=== PATIENT | female | born 1945 | race Caucasian/White ===

== ENCOUNTER → 2017-08-04 | Outpatient (CLI) | payer MEDICARE, OTHER ==
--- NOTE | 2017-08-05 11:38 | MM ---
Reason for exam: screening (asymptomatic). History: Patient is postmenopausal. Physical Findings: A clinical breast exam by your physician is recommended on an annual basis and results should be correlated with mammographic findings. MG Screening Mammo w CAD Bilateral CC and MLO view(s) were taken. No prior studies available for comparison. There are scattered fibroglandular densities. Finding: There are typically benign round calcifications in both breasts. ASSESSMENT: Benign, BI-RAD 2 RECOMMENDATION: Routine screening mammogram of both breasts in 1 year.
== END | disposition home or self-care (01) ==
LOC: RADMAMWWP 16:47
PROVIDERS: ATTEND Family Medicine
DX: Z12.31 Encounter for screening mammogram for malignant neoplasm of breast (principal)
CPT/HCPCS: 77067

== ENCOUNTER 2018-04-02 21:43 | Emergency (ER) | payer MEDICARE, OTHER ==
[2018-04-02] MEDS ORDERED: ONDANSETRON 4 MG/2 ML VIAL IVP STA (22:50)
[2018-04-02 22:56] LABS: Basophils % (A) 0 %; Eosinophils # (A) 0.1 k/uL (0-0.7); Eosinophils % (A) 1 %; HCT 41.2 % (34.0-46.0); HGB 12.7 gm/dL (11.4-16.0); Lymphocytes # (A) 1.3 k/uL (1.0-4.8); Lymphocytes % (A) 11 %; MCHC 30.8 g/dL (31.0-37.0); MCV 87.5 fL (80.0-100.0); Mean Platelet Volume 6.3; Monocytes # (A) 0.6 k/uL (0-1.0); Monocytes % (A) 5 %; Neutrophils # (A) 9.6 k/uL (1.3-7.7); Neutrophils % (A) 82 %; Platelet Count 263 k/uL (150-450); WBC 11.8 k/uL (3.8-10.6)
[2018-04-02 23:06] LABS: Albumin 3.7 g/dL (3.5-5.0); Calcium 9.7 mg/dL (8.4-10.2); Potassium 4.5 mmol/L (3.5-5.1); Total Bilirubin 0.4 mg/dL (0.2-1.3); Total Protein 6.5 g/dL (6.3-8.2)
[2018-04-02 23:26] LABS: Appearance,Urine Cloudy (Clear); Bilirubin,Urine Negative (Negative); Blood,Urine Trace (Negative); Color,Urine Yellow; Glucose,Urine (UA) 3+ (Negative); Ketones,Urine 1+ (Negative); Leukocyte Esterase,Urine Large (Negative); Mucus,Urine Many /hpf; Nitrite,Urine Negative (Negative); PH, Urine 5.5 (5.0-8.0); Protein,Urine 2+ (Negative); Specific Gravity,Urine 1.023 (1.001-1.035); Squamous Epithelial Cell,Urine 24 /hpf (0-4); Urobilinogen,Urine <2.0 mg/dL (<2.0); WBC,Urine 33 /hpf (0-5)
--- NOTE | 2018-04-03 00:24 | ED ---
Abdominal Pain HPI - General Chief Complaint: Abdominal Pain Stated Complaint: Abd pain Time Seen by Provider: 04/02/18 22:26 Source: patient Mode of arrival: ambulatory Limitations: no limitations - History of Present Illness Initial Comments: This patient is 72-year-old woman who complains of having abdominal pain. She states that is been developing over the past couple days. She states that the symptoms remind her somewhat of urinary tract infection, somewhat of previous episode of diverticulitis. MD Complaint: abdominal pain -: days(s) Location: LLQ, suprapubic Radiation: none Migration to: LLQ Severity: moderate Quality: aching Consistency: constant Improves With: nothing Worsens With: nothing Associated Symptoms: denies other symptoms - Related Data Previous Rx's Medication Instructions Recorded Ciprofloxacin HCl [Cipro] 500 mg PO Q12HR #14 tablet 04/03/18 Dicyclomine [Bentyl] 20 mg PO QID #15 tablet 04/03/18 metroNIDAZOLE [Flagyl] 500 mg PO TID #21 tab 04/03/18 Allergies Allergy/AdvReac Type Severity Reaction Status Date / Time prednisone Allergy Unknown Verified 04/02/18 22:21 Sulfa (Sulfonamide Allergy Unknown Verified 04/02/18 22:21 Antibiotics) Review of Systems ROS Statement: Those systems with pertinent positive or pertinent negative responses have been documented in the HPI. ROS Other: All systems not noted in ROS Statement are negative. Constitutional: Denies: fever, chills Respiratory: Denies: cough, dyspnea Cardiovascular: Denies: chest pain, palpitations Gastrointestinal: Reports: abdominal pain, nausea, vomiting. Denies: diarrhea, melena, hematochezia Genitourinary: Reports: dysuria. Denies: hematuria Musculoskeletal: Denies: back pain Skin: Denies: rash Neurological: Denies: headache, weakness, numbness Past Medical History Past Medical History: Diabetes Mellitus Additional Past Medical History / Comment(s): migraines History of Any Multi-Drug Resistant Organisms: None Reported Past Surgical History: Hysterectomy Past Psychological History: No Psychological Hx Reported Smoking Status: Never smoker Past Alcohol Use History: None Reported Past Drug Use History: None Reported General Exam Limitations: no limitations General appearance: alert, in no apparent distress, obese Head exam: Present: atraumatic, normocephalic Respiratory exam: Present: normal lung sounds bilaterally. Absent: respiratory distress, wheezes, rales, rhonchi, stridor Cardiovascular Exam: Present: regular rate, normal rhythm, normal heart sounds. Absent: systolic murmur, diastolic murmur, rubs, gallop GI/Abdominal exam: Present: soft, other (There is a small umbilical hernia which is nontender.). Absent: distended, tenderness, guarding, rebound, rigid, organomegaly, mass Extremities exam: Present: normal inspection, normal capillary refill. Absent: pedal edema, calf tenderness Back exam: Present: normal inspection. Absent: CVA tenderness (R), CVA tenderness (L) Neurological exam: Present: alert Skin exam: Present: warm, dry, intact, normal color. Absent: rash Course Vital Signs 04/02/18 04/03/18 04/03/18 22:21 00:19 02:52 Temperature 98.9 F 98.3 F Pulse Rate 109 H 92 100 Respiratory 20 18 16 Rate Blood Pressure 156/98 152/90 114/56 O2 Sat by Pulse 97 96 95 Oximetry Medical Decision Making - Medical Decision Making Following the results of the studies. I will reevaluated the patient. She is feeling much better. We discussed admission friend natalya but the patient states that she would rather attempt outpatient course. Discussed that the area of colitis is somewhat large and she should return immediately if she rates is any worsening, or if she is not experiencing improvement inside of 12 hours. Appropriate further care and follow-up discussed - Lab Data Result diagrams: 04/02/18 22:44 04/02/18 22:44 Lab Results 04/02/18 04/02/18 04/02/18 Range/Units 22:44 22:44 22:57 WBC 11.8 H (3.8-10.6) k/uL RBC 4.70 (3.80-5.40) m/uL Hgb 12.7 (11.4-16.0) gm/dL Hct 41.2 (34.0-46.0) % MCV 87.5 (80.0-100.0) fL MCH 27.0 (25.0-35.0) pg MCHC 30.8 L (31.0-37.0) g/dL RDW 15.0 (11.5-15.5) % Plt Count 263 (150-450) k/uL Neutrophils % 82 % Lymphocytes % 11 % Monocytes % 5 % Eosinophils % 1 % Basophils % 0 % Neutrophils # 9.6 H (1.3-7.7) k/uL Lymphocytes # 1.3 (1.0-4.8) k/uL Monocytes # 0.6 (0-1.0) k/uL Eosinophils # 0.1 (0-0.7) k/uL Basophils # 0.0 (0-0.2) k/uL Sodium 136 L (137-145) mmol/L Potassium 4.5 (3.5-5.1) mmol/L Chloride 104 (98-107) mmol/L Carbon Dioxide 23 (22-30) mmol/L Anion Gap 9 mmol/L BUN 17 (7-17) mg/dL Creatinine 0.77 (0.52-1.04) mg/dL Est GFR (CKD-EPI)AfAm 90 (>60 ml/min/1.73 sqM) Est GFR (CKD-EPI)NonAf 78 (>60 ml/min/1.73 sqM) Glucose 202 H (74-99) mg/dL Calcium 9.7 (8.4-10.2) mg/dL Total Bilirubin 0.4 (0.2-1.3) mg/dL AST 22 (14-36) U/L ALT 26 (9-52) U/L Alkaline Phosphatase 121 (38-126) U/L Total Protein 6.5 (6.3-8.2) g/dL Albumin 3.7 (3.5-5.0) g/dL Amylase 46 (30-110) U/L Lipase 146 (23-300) U/L Urine Color Yellow Urine Appearance Cloudy H (Clear) Urine pH 5.5 (5.0-8.0) Ur Specific [place] 1.023 (1.001-1.035) Urine Protein 2+ H (Negative) Urine Glucose (UA) 3+ H (Negative) Urine Ketones 1+ H (Negative) Urine Blood Trace H (Negative) Urine Nitrite Negative (Negative) Urine Bilirubin Negative (Negative) Urine Urobilinogen <2.0 (<2.0) mg/dL Ur Leukocyte Esterase Large H (Negative) Urine WBC 33 H (0-5) /hpf Ur Squamous Epith Cells 24 H (0-4) /hpf Urine Mucus Many H (None) /hpf Disposition Clinical Impression: Abdominal pain, Diverticulitis Disposition: HOME SELF-CARE Condition: Fair Instructions: Diverticulitis (ED) Prescriptions: Ciprofloxacin HCl [Cipro] 500 mg PO Q12HR #14 tablet Dicyclomine [Bentyl] 20 mg PO QID #15 tablet metroNIDAZOLE [Flagyl] 500 mg PO TID #21 tab Is patient prescribed a controlled substance at d/c from ED?: No Referrals: Wily Kamara MD [Primary Care Provider] - 1-2 days
--- NOTE | 2018-04-03 01:00 | CT ---
EXAMINATION TYPE: CT abdomen pelvis wo con DATE OF EXAM: 04/03/2018 COMPARISON: None HISTORY: mid abd pain CT DLP: 909.3 mGycm Automated exposure control for dose reduction was used. TECHNIQUE: Helical acquisition of images was performed from the lung bases through the pelvis. FINDINGS: There is a noncalcified 10 mm nodule in the right middle lobe. There is no pleural effusion. There is no pericardial effusion. Liver spleen pancreas gallbladder appear normal. Bile ducts are not dilated. Gallbladder measures 3.7 cm in diameter. There is no adrenal mass. Kidneys show no hydronephrosis. Ureters are not dilated. T here is a high density 2.8 cm cyst on the lateral left kidney. The density is 76. This contains calci um. There is no retroperitoneal adenopathy. There is umbilical hernia that contains fat. The fat is incar cerated and the opening is 1.4 cm. There are extensive inflammatory changes involving the proximal sigmoid colon with fat stranding. The re are numerous sigmoid diverticula. I see no definite free air. There is no evidence of a bowel obst ruction. Bladder distends smoothly. There is no inguinal hernia. There is no free fluid in the pelvis . There are some spondylotic changes in the lumbar spine. Bony pelvis is intact. There is no compress ion fracture. IMPRESSION: THERE IS EXTENSIVE DESCENDING COLON AND SIGMOID COLON DIVERTICULOSIS WITH A 9 CM SEGMENT OF SIGMOID D IVERTICULITIS. NO DRAINABLE FLUID COLLECTION. 5 CM INCARCERATED UMBILICAL HERNIA. 1 cm right middle lobe nodule.
[2018-04-03] MEDS ORDERED: metroNIDAZOLE 500 MG TAB PO STA (01:01)
[2018-04-03] MEDS ORDERED: LEVOFLOXACIN 750MG-D5W PMX 750 MG in DEXTROSE/WATER 1 150ML.BAG IVPB STA (01:01)
[2018-04-03] MEDS ORDERED: MORPHINE SULFATE 4 MG/ML SYRINGE IV STA (01:19)
[2018-04-03 02:53] VITALS: BP 114/56; PULSE 100; RESP 16; TEMP 98.3
== END 2018-04-03 02:53 | disposition home or self-care (01) ==
LOC: EC 21:43
DX: K57.92 Diverticulitis of intestine, part unspecified, without perforation or abscess without bleeding (principal); K42.9 Umbilical hernia without obstruction or gangrene; Z90.710 Acquired absence of both cervix and uterus; Z88.2 Allergy status to sulfonamides; Z88.8 Allergy status to other drugs, medicaments and biological substances
CPT/HCPCS: 36415; 80053; 82150; 83690; 85025; 81001; 74176; 99284; 96365; 96375 ×2; J2270; J2405; J1956

== ENCOUNTER 2018-05-06 12:12 | Inpatient (IN) | payer MEDICARE, OTHER ==
[2018-05-06] MEDS ORDERED: SODIUM CHLORIDE 0.9% 500 ML 500 ML IV STA (12:40)
[2018-05-06] MEDS ORDERED: ONDANSETRON 4 MG/2 ML VIAL IVP STA (12:40)
[2018-05-06] MEDS ORDERED: PANTOPRAZOLE 40 MG/10 ML VIAL IVP STA (12:40)
--- NOTE | 2018-05-06 12:43 | ED ---
General Adult HPI - General Chief complaint: GI Bleed Stated complaint: GI bleed Time Seen by Provider: 05/06/18 12:18 Source: patient, RN notes reviewed, old records reviewed Mode of arrival: ambulatory Limitations: no limitations - History of Present Illness Initial comments: 72-year-old presents for evaluation of abdominal pain, vomiting, diarrhea. Patient does seem emergency department approximately one month ago, diagnosed with acute diverticulitis, treated with antibiotics. Patient was recommended to be admitted at that time however she declined admission, she went home with oral antibiotics. She's had persistent symptoms including diarrhea with blood and persistent nausea with several episodes of vomiting approximately one episode daily. She has noted some blood in her vomit as well. No fever or chills. She has some mild generalized abdominal pain. Patient was seen by her primary care physician who did recommend she be presented to emergency department for evaluation given that she has had persistent symptoms. - Related Data Home Medications Medication Instructions Recorded Confirmed Diazepam [Valium] 5 mg PO DAILY PRN 05/06/18 05/06/18 Dicyclomine [Bentyl] 20 mg PO QID 05/06/18 05/06/18 Glimepiride [Amaryl] 4 mg PO AC-BRKFST 05/06/18 05/06/18 Pioglitazone [Actos] 45 mg PO DAILY 05/06/18 05/06/18 Sertraline [Zoloft] 50 mg PO DAILY 05/06/18 05/06/18 metFORMIN HCL [Glucophage] 500 mg PO BID@1700,2100 05/06/18 05/06/18 Allergies Allergy/AdvReac Type Severity Reaction Status Date / Time prednisone Allergy Unknown Verified 05/06/18 12:43 Sulfa (Sulfonamide Allergy Unknown Verified 05/06/18 12:43 Antibiotics) metronidazole [From Flagyl] AdvReac Nausea Verified 05/06/18 12:43 Review of Systems ROS Statement: Those systems with pertinent positive or pertinent negative responses have been documented in the HPI. ROS Other: All systems not noted in ROS Statement are negative. Past Medical History Past Medical History: Diabetes Mellitus Additional Past Medical History / Comment(s): migraines History of Any Multi-Drug Resistant Organisms: None Reported Past Surgical History: Hysterectomy Past Psychological History: No Psychological Hx Reported Smoking Status: Never smoker Past Alcohol Use History: None Reported Past Drug Use History: None Reported General Exam Limitations: no limitations General appearance: alert, in no apparent distress Head exam: Present: atraumatic, normocephalic Eye exam: Present: normal appearance, PERRL ENT exam: Present: normal exam Neck exam: Present: normal inspection. Absent: tenderness, meningismus Respiratory exam: Present: normal lung sounds bilaterally. Absent: respiratory distress, wheezes Cardiovascular Exam: Present: normal rhythm, tachycardia GI/Abdominal exam: Present: soft. Absent: distended, tenderness, guarding, rebound Rectal exam: Present: normal rectal tone. Absent: black stool, bloody stool Extremities exam: Present: normal inspection, normal capillary refill. Absent: pedal edema Neurological exam: Present: alert, oriented X3, CN II-XII intact. Absent: motor sensory deficit Psychiatric exam: Present: normal affect, normal mood Skin exam: Present: warm, dry, intact. Absent: cyanosis, diaphoretic Course Vital Signs 05/06/18 05/06/18 05/06/18 12:18 13:30 15:00 Temperature 98 F Pulse Rate 110 H 105 H 91 Respiratory 22 18 17 Rate Blood Pressure 139/73 156/98 148/69 O2 Sat by Pulse 97 96 93 L Oximetry Medical Decision Making - Medical Decision Making 72-year-old female presenting with persistent nausea and vomiting as well as diarrhea with blood in both vomiting and diarrhea over the past one month. Initially treated for diverticulitis with oral antibiotics. States her symptoms have not improved she's had persistent diarrhea and rectal bleeding. On exam patient has no active rectal bleeding, no melena, no hematochezia. Laboratory studies reveal normal white blood cell count, stable hemoglobin, normal CMP, CT is performed which is more consistent with a colitis rather than diverticulitis at this point. Given the ongoing symptoms she was started on both Protonix, and Levaquin for colitis. She will be admitted for symptomatic treatment and reevaluation. Case is discussed with Dr. Hebert, who will accept admission. - Lab Data Result diagrams: 05/06/18 12:45 05/06/18 12:45 Lab Results 05/06/18 05/06/18 05/06/18 Range/Units 12:45 12:45 12:45 WBC 8.6 (3.8-10.6) k/uL RBC 4.80 (3.80-5.40) m/uL Hgb 13.3 (11.4-16.0) gm/dL Hct 40.9 (34.0-46.0) % MCV 85.2 (80.0-100.0) fL MCH 27.6 (25.0-35.0) pg MCHC 32.4 (31.0-37.0) g/dL RDW 15.0 (11.5-15.5) % Plt Count 216 (150-450) k/uL Neutrophils % 73 % Lymphocytes % 15 % Monocytes % 8 % Eosinophils % 1 % Basophils % 0 % Neutrophils # 6.3 (1.3-7.7) k/uL Lymphocytes # 1.3 (1.0-4.8) k/uL Monocytes # 0.7 (0-1.0) k/uL Eosinophils # 0.1 (0-0.7) k/uL Basophils # 0.0 (0-0.2) k/uL Sodium 138 (137-145) mmol/L Potassium 4.4 (3.5-5.1) mmol/L Chloride 108 H (98-107) mmol/L Carbon Dioxide 19 L (22-30) mmol/L Anion Gap 11 mmol/L BUN 23 H (7-17) mg/dL Creatinine 0.95 (0.52-1.04) mg/dL Est GFR (CKD-EPI)AfAm 70 (>60 ml/min/1.73 sqM) Est GFR (CKD-EPI)NonAf 61 (>60 ml/min/1.73 sqM) Glucose 178 H (74-99) mg/dL Plasma Lactic Acid Leroy 1.0 (0.7-2.0) mmol/L Calcium 9.2 (8.4-10.2) mg/dL Total Bilirubin 0.4 (0.2-1.3) mg/dL AST 28 (14-36) U/L ALT 29 (9-52) U/L Alkaline Phosphatase 123 (38-126) U/L Total Protein 6.7 (6.3-8.2) g/dL Albumin 3.8 (3.5-5.0) g/dL Amylase 46 (30-110) U/L Lipase 202 (23-300) U/L Stool Occult Blood (Negative) 05/06/18 Range/Units 12:45 WBC (3.8-10.6) k/uL RBC (3.80-5.40) m/uL Hgb (11.4-16.0) gm/dL Hct (34.0-46.0) % MCV (80.0-100.0) fL MCH (25.0-35.0) pg MCHC (31.0-37.0) g/dL RDW (11.5-15.5) % Plt Count (150-450) k/uL Neutrophils % % Lymphocytes % % Monocytes % % Eosinophils % % Basophils % % Neutrophils # (1.3-7.7) k/uL Lymphocytes # (1.0-4.8) k/uL Monocytes # (0-1.0) k/uL Eosinophils # (0-0.7) k/uL Basophils # (0-0.2) k/uL Sodium (137-145) mmol/L Potassium (3.5-5.1) mmol/L Chloride (98-107) mmol/L Carbon Dioxide (22-30) mmol/L Anion Gap mmol/L BUN (7-17) mg/dL Creatinine (0.52-1.04) mg/dL Est GFR (CKD-EPI)AfAm (>60 ml/min/1.73 sqM) Est GFR (CKD-EPI)NonAf (>60 ml/min/1.73 sqM) Glucose (74-99) mg/dL Plasma Lactic Acid Leroy (0.7-2.0) mmol/L Calcium (8.4-10.2) mg/dL Total Bilirubin (0.2-1.3) mg/dL AST (14-36) U/L ALT (9-52) U/L Alkaline Phosphatase (38-126) U/L Total Protein (6.3-8.2) g/dL Albumin (3.5-5.0) g/dL Amylase (30-110) U/L Lipase (23-300) U/L Stool Occult Blood Negative (Negative) Disposition Clinical Impression: Colitis, Vomiting and diarrhea Disposition: ADMITTED IP TO THIS [facility] Condition: Stable Is patient prescribed a controlled substance at d/c from ED?: No Referrals: Wily Kamara MD [Primary Care Provider] - 1-2 days Decision to Admit Reason: Admit from EC Decision Date: 05/06/18 Decision Time: 15:14
[2018-05-06 13:17] LABS: Basophils % (A) 0 %; Eosinophils # (A) 0.1 k/uL (0-0.7); Eosinophils % (A) 1 %; HCT 40.9 % (34.0-46.0); HGB 13.3 gm/dL (11.4-16.0); Lymphocytes # (A) 1.3 k/uL (1.0-4.8); Lymphocytes % (A) 15 %; MCH 27.6 pg (25.0-35.0); MCHC 32.4 g/dL (31.0-37.0); MCV 85.2 fL (80.0-100.0); Mean Platelet Volume 7.2; Monocytes # (A) 0.7 k/uL (0-1.0); Monocytes % (A) 8 %; Neutrophils # (A) 6.3 k/uL (1.3-7.7); Neutrophils % (A) 73 %; Platelet Count 216 k/uL (150-450); WBC 8.6 k/uL (3.8-10.6)
[2018-05-06 13:28] LABS: Total Protein 6.7 g/dL (6.3-8.2)
[2018-05-06 13:29] LABS: Albumin 3.8 g/dL (3.5-5.0); Calcium 9.2 mg/dL (8.4-10.2); Potassium 4.4 mmol/L (3.5-5.1); Total Bilirubin 0.4 mg/dL (0.2-1.3)
--- NOTE | 2018-05-06 14:18 | CT ---
EXAMINATION TYPE: CT abdomen pelvis w con DATE OF EXAM: 05/06/2018 COMPARISON: Prior CT 04/03/2018 HISTORY: Lower pelvic pain, vomiting, diarrhea, rectal bleeding CT DLP: 1413.3 mGycm Automated exposure control for dose reduction was used. TECHNIQUE: Helical acquisition of images from the lung bases through the pelvis have been completed. CONTRAST: Performed without Oral Contrast and with IV Contrast, patient injected with 100 mL of Isovue 300. FINDINGS: Umbilical hernia contains fat as on prior exam. LUNG BASES: There is an indeterminate soft tissue nodule within the right middle lobe measuring appro ximately 1 cm as noted on prior exam, question left lower lobe nodule on axial image 8 and the subple ural location left lower lobe measuring 3 mm as well as on axial image 1. AORTA: No significant abnormality is appreciated. LIVER/GB: Liver shows low attenuation likely due to hepatic steatosis. Gallbladder is unremarkable. PANCREAS: No significant abnormality is seen. SPLEEN: No significant abnormality is seen. ADRENALS: No significant abnormality is seen. KIDNEYS: Dense left renal exophytic lesion measures 2.9 cm mid pole left kidney as on prior exam, no hydronephrosis bilaterally. REPRODUCTIVE ORGANS: Not seen. BOWEL: Diverticular change is again noted associated with the colon. There is improvement in the abn ormal inflammatory changes seen on previous exam within the pericolonic region of the sigmoid colon. The appendix is normal. The colon shows wall thickening. FREE AIR: No Free Air visible. ASCITES: None visible. PELVIC ADENOPATHY: None visualized. RETROPERITONEAL ADENOPATHY: No Retroperitoneal Adenopathy visible. URINARY BLADDER: No significant abnormality is seen. OSSEOUS STRUCTURES: Degenerative disc changes, facet arthropathy and spinal stenosis again noted in the lower lumbar spine. Spinal curvature. IMPRESSION: Correlate for possible colitis. INTERVAL IMPROVEMENT IN PATIENT'S INFLAMMATORY CHANGES IN THE PELVIS, EXTENSIVE DIVERTICULOSIS. INDETERMINATE PULMONARY NODULES.
[2018-05-06] MEDS ORDERED: LEVOFLOXACIN 500MG-D5W PMX 500 MG in DEXTROSE/WATER 1 100ML.BAG IVPB STA (15:08)
[2018-05-06] MEDS ORDERED: NALOXONE 0.4 MG/ML 1 ML VIAL IV PRN (15:15)
[2018-05-06] MEDS: SODIUM CHLORIDE 0.9% 1,000 ML IV SCH (15:20)
[2018-05-06 17:20] LABS: Glucose,Whole Blood 127 mg/dL (75-99)
[2018-05-06] MEDS: INSULIN ASPART 100 UNIT/ML 1 ML 10 ML VIAL SQ SCH ×2 (17:24→21:55)
[2018-05-06] MEDS: DICYCLOMINE 20 MG TAB PO SCH ×2 (17:47→20:22)
[2018-05-06] MEDS: PANTOPRAZOLE 40 MG/10 ML VIAL IVP SCH (20:22)
[2018-05-06 21:24] LABS: Glucose,Whole Blood 132 mg/dL (75-99)
[2018-05-06 22:12] LABS: Appearance,Urine Clear (Clear); Bacteria,Urine Occasional /hpf; Bilirubin,Urine Negative (Negative); Blood,Urine Trace (Negative); Color,Urine Yellow; Glucose,Urine (UA) Negative (Negative); Ketones,Urine Trace (Negative); Leukocyte Esterase,Urine Large (Negative); Mucus,Urine Occasional /hpf; Nitrite,Urine Negative (Negative); PH, Urine 5.5 (5.0-8.0); Protein,Urine 1+ (Negative); RBC,Urine 7 /hpf (0-5); Squamous Epithelial Cell,Urine 17 /hpf (0-4); Urobilinogen,Urine <2.0 mg/dL (<2.0); WBC,Urine 29 /hpf (0-5)
[2018-05-06 22:24] LABS: Specific Gravity,Urine >1.050 (1.001-1.035)
--- NOTE | 2018-05-06 23:09 | P.HPIM ---
History of Present Illness H&P Date: 05/06/18 Chief Complaint: Abdominal pain, nausea and vomiting Patient is a 72-year-old female with a known history of diabetes type 2, recent history of diverticulitis came to ER with complaints of abdominal pain, nausea vomiting and diarrhea. Patient was treated with antibiotics for acute diverticulitis about a month ago. For the past 2 days patient has been having nausea vomiting and diarrhea and abdominal pain. Patient did notice some blood in her vomit as well. Patient came to ER for further evaluation. Otherwise denied any fever or chills. No headache or dizziness lightheadedness. No chest shortness of breath. Patient was seen by her primary care physician who did recommend she be presented to emergency department for evaluation given that she has had persistent symptoms. CT of the abdomen pelvis showed correlate for possible colitis. Interventional improvement in the inflammatory changes in the pelvis, extensive diverticulosis. Indeterminate pulmonary nodules. Review of Systems Constitutional: Patient denies any fever or chills . No generalized weakness or weight loss. Abdomen: Patient does have nausea vomiting and abdominal pain.. Cardiovascular: Patient denies any chest pain or short of breath no palpitations. Respiratory: patient denied any cough is from production. No shortness of breath Neurologic: Patient denied any numbness or tingling headache. Musculoskeletal: Patient denies any complaints of joint swelling or deformity. Skin: Negative Psychiatric: Negative Endocrine: No heat or cold intolerance. No recent weight gain. Genitourinary: No dysuria or hematuria. All other 14 point ROS negative except the above Past Medical History Past Medical History: Diabetes Mellitus Additional Past Medical History / Comment(s): migraines History of Any Multi-Drug Resistant Organisms: None Reported Past Surgical History: Hysterectomy Past Psychological History: No Psychological Hx Reported Smoking Status: Never smoker Past Alcohol Use History: None Reported Past Drug Use History: None Reported - Past Family History Mother Family Medical History: Cancer, Coronary Artery Disease (CAD) Additional Family Medical History / Comment(s): breast cancer. triple vessel cabg- age 95 Father Family Medical History: Cancer Additional Family Medical History / Comment(s): age 62 Medications and Allergies Home Medications Medication Instructions Recorded Confirmed Type Diazepam [Valium] 5 mg PO DAILY PRN 05/06/18 05/06/18 History Dicyclomine [Bentyl] 20 mg PO QID 05/06/18 05/06/18 History Glimepiride [Amaryl] 4 mg PO AC-BRKFST 05/06/18 05/06/18 History Pioglitazone [Actos] 45 mg PO DAILY 05/06/18 05/06/18 History Sertraline [Zoloft] 50 mg PO DAILY 05/06/18 05/06/18 History metFORMIN HCL [Glucophage] 500 mg PO BID@1700,2100 05/06/18 05/06/18 History Allergies Allergy/AdvReac Type Severity Reaction Status Date / Time prednisone Allergy Unknown Verified 05/06/18 12:43 Sulfa (Sulfonamide Allergy Unknown Verified 05/06/18 12:43 Antibiotics) metronidazole [From Flagyl] AdvReac Nausea Verified 05/06/18 12:43 Physical Exam Vitals: Vital Signs Temp Pulse Resp BP Pulse Ox 05/06/18 15:00 91 17 148/69 93 L 05/06/18 13:30 105 H 18 156/98 96 05/06/18 12:18 98 F 110 H 22 139/73 97 Intake and Output 05/06/18 05/06/18 05/06/18 06:59 14:59 22:59 Other: Weight 95.254 kg PHYSICAL EXAMINATION: Patient is lying in the bed comfortably, no acute distress, awake alert and oriented.. HEENT: Normocephalic. Neck is supple. Pupils reactive. Nostrils clear. Oral cavity is moist. Ears reveal no drainage. Neck reveals no JVD, carotid bruits, or thyromegaly. CHEST EXAMINATION: Trachea is central. Symmetrical expansion. Lung olivares clear to auscultation and percussion. CARDIAC: Normal S1, S2 with no gallops. No murmurs ABDOMEN: Soft. Bowel sounds normal. Mild diffuse tenderness. No guarding no rigidity. No organomegaly. No abdominal bruits. Extremities: reveal no edema. No clubbing or cyanosis Neurologically awake, alert, oriented x3 with well-coordinated movements. No focal deficits noted Skin: No rash or skin lesions. Psychiatric: Coperative. Nonsuicidal Musculoskeletal: No joint swelling or deformity. Normal range of motion. Results CBC & Chem 7: 05/06/18 12:45 05/06/18 12:45 Labs: Abnormal Lab Results - Last 24 Hours (Table) 05/06/18 Range/Units 12:45 Chloride 108 H (98-107) mmol/L Carbon Dioxide 19 L (22-30) mmol/L BUN 23 H (7-17) mg/dL Glucose 178 H (74-99) mg/dL Thrombosis Risk Factor Assmnt - DVT/VTE Prophylaxis DVT/VTE Prophylaxis: Pharmacologic Prophylaxis ordered Assessment and Plan Assessment: Nausea vomiting and diarrhea due to acute colitis. Possible urinary tract infection Streaks of blood with emesis. Likely mucosal excoriation. No active bleeding noted. FOBT negative Recently treated diverticulitis Significant diverticulosis Diabetes type 2 [id number] Morbid obesity BMI 37.2 DVT prophylaxis with SCDs Plan: Patient be continued on symptomatic management for nausea and vomiting. Continue with antibiotics of Levaquin and Flagyl. Patient says that she did have metallic taste with Flagyl by mouth. Continue with IV Flagyl now. Continue the home diabetic medications. Continue with IV Protonix and monitor H &H. IV hydration. Follow-up urine culture reports. Follow up closely and further recommendations based on the clinical course. Time with Patient: Greater than 30
[2018-05-07] MEDS: DIAZEPAM 5 MG TAB PO PRN ×2 (00:32→23:24)
[2018-05-07] MEDS: metroNIDAZOLE-NS PMX 500 MG in SALINE 1 100ML.BAG IVPB SCH ×4 (00:32→23:24)
[2018-05-07 03:38] LABS: Hemoglobin A1C 8.9 % (4.0-6.0)
[2018-05-07] MEDS: SODIUM CHLORIDE 0.9% 1,000 ML IV SCH ×2 (04:30→17:21)
[2018-05-07] MEDS: SERTRALINE 50 MG TAB PO SCH (07:42)
[2018-05-07] MEDS: PIOGLITAZONE 45 MG TAB PO SCH (07:43)
[2018-05-07] MEDS: DICYCLOMINE 20 MG TAB PO SCH ×4 (07:43→21:14)
[2018-05-07] MEDS: INSULIN ASPART 100 UNIT/ML 1 ML 10 ML VIAL SQ SCH ×4 (07:44→21:15)
[2018-05-07] MEDS: PANTOPRAZOLE 40 MG/10 ML VIAL IVP SCH ×2 (07:44→21:14)
[2018-05-07 07:47] LABS: Glucose,Whole Blood 174 mg/dL (75-99)
[2018-05-07 11:55] LABS: Glucose,Whole Blood 129 mg/dL (75-99)
[2018-05-07] MEDS ORDERED: ACETAMINOPHEN TAB 325 MG TAB PO PRN (12:50)
[2018-05-07] MEDS: LEVOFLOXACIN 500MG-D5W PMX 500 MG in DEXTROSE/WATER 1 100ML.BAG IVPB SCH (15:27)
[2018-05-07 17:14] LABS: Glucose,Whole Blood 127 mg/dL (75-99)
[2018-05-07 20:05] LABS: Glucose,Whole Blood 191 mg/dL (75-99)
--- NOTE | 2018-05-07 23:10 | P.PN ---
Subjective Progress Note Date: 05/07/18 Principal diagnosis: Colitis Patient is a 72-year-old female with a known history of diabetes type 2, recent history of diverticulitis came to ER with complaints of abdominal pain, nausea vomiting and diarrhea. Patient was treated with antibiotics for acute diverticulitis about a month ago. For the past 2 days patient has been having nausea vomiting and diarrhea and abdominal pain. Patient did notice some blood in her vomit as well. Patient came to ER for further evaluation. Otherwise denied any fever or chills. No headache or dizziness lightheadedness. No chest shortness of breath. Patient was seen by her primary care physician who did recommend she be presented to emergency department for evaluation given that she has had persistent symptoms. CT of the abdomen pelvis showed correlate for possible colitis. Interventional improvement in the inflammatory changes in the pelvis, extensive diverticulosis. Indeterminate pulmonary nodules. 05/07/2018 Patient denied any complaints of nausea vomiting today. Abdominal pain improved. Diarrhea improved as well. Patient is being continued on antibiotics for colitis. Patient will be started on diet and advanced to soft as tolerated. No fever no chills. No chest pain or shortness of breath. No other acute overnight issues otherwise. Current medications reviewed Objective - Vital Signs Vital signs: Vital Signs Temp 98.5 F 05/07/18 18:06 Pulse 89 05/07/18 18:06 Resp 17 05/07/18 18:06 BP 103/65 05/07/18 18:06 Pulse Ox 98 05/07/18 18:06 Intake & Output 05/07/18 05/07/18 05/08/18 06:59 18:59 06:59 Intake Total 672 Balance 672 Intake: Oral 672 Other: Voiding Method Toilet Toilet - Exam PHYSICAL EXAMINATION: Patient is lying in the bed comfortably, no acute distress, awake alert and oriented.. HEENT: Normocephalic. Neck is supple. Pupils reactive. Nostrils clear. Oral cavity is moist. Ears reveal no drainage. Neck reveals no JVD, carotid bruits, or thyromegaly. CHEST EXAMINATION: Trachea is central. Symmetrical expansion. Lung olivares clear to auscultation and percussion. CARDIAC: Normal S1, S2 with no gallops. No murmurs ABDOMEN: Soft. Bowel sounds normal. No organomegaly. No abdominal bruits. Extremities: reveal no edema. No clubbing or cyanosis Neurologically awake, alert, oriented x3 with well-coordinated movements. No focal deficits noted Skin: No rash or skin lesions. Psychiatric: Coperative. Nonsuicidal Musculoskeletal: No joint swelling or deformity. Normal range of motion. - Labs CBC & Chem 7: 05/06/18 12:45 05/06/18 12:45 Labs: Abnormal Lab Results - Last 24 Hours (Table) 05/06/18 05/06/18 05/07/18 Range/Units 12:45 20:38 07:35 POC Glucose (mg/dL) 174 H (75-99) mg/dL Hemoglobin A1c 8.9 H (4.0-6.0) % Ur Specific Holstein >1.050 H (1.001-1.035) 05/07/18 05/07/18 05/07/18 Range/Units 11:42 17:02 19:53 POC Glucose (mg/dL) 129 H 127 H 191 H (75-99) mg/dL Hemoglobin A1c (4.0-6.0) % Ur Specific Holstein (1.001-1.035) Microbiology - Last 24 Hours (Table) 05/06/18 20:38 Urine Culture - Preliminary Urine,Clean Catch Assessment and Plan Assessment: Nausea vomiting and diarrhea due to acute colitis. Possible urinary tract infection Streaks of blood with emesis. Likely mucosal excoriation. No active bleeding noted. FOBT negative Recently treated diverticulitis Significant diverticulosis Diabetes type 2 [id number] Morbid obesity BMI 37.2 DVT prophylaxis with SCDs Plan: Patient be continued on symptomatic management for nausea and vomiting. Continue with antibiotics of Levaquin and Flagyl. Patient says that she did have metallic taste with Flagyl by mouth. Continue with IV Flagyl which patient is tolerating now. Continue the home diabetic medications. Continue with IV Protonix and monitor H&H. IV hydration. Follow-up urine culture reports. Follow up closely and further recommendations based on the clinical course.
[2018-05-08] MEDS: SERTRALINE 50 MG TAB PO SCH (08:04)
[2018-05-08] MEDS: metroNIDAZOLE 500 MG TAB PO SCH ×3 (08:04→23:27)
[2018-05-08 08:05] LABS: Glucose,Whole Blood 137 mg/dL (75-99)
[2018-05-08] MEDS: PIOGLITAZONE 45 MG TAB PO SCH (08:05)
[2018-05-08] MEDS: PANTOPRAZOLE 40 MG/10 ML VIAL IVP SCH ×2 (08:05→22:17)
[2018-05-08] MEDS: DICYCLOMINE 20 MG TAB PO SCH ×4 (08:05→22:17)
[2018-05-08] MEDS: INSULIN ASPART 100 UNIT/ML 1 ML 10 ML VIAL SQ SCH ×4 (08:06→22:17)
[2018-05-08] MEDS: SODIUM CHLORIDE 0.9% 1,000 ML IV SCH ×2 (08:06→23:28)
[2018-05-08 12:03] LABS: Glucose,Whole Blood 185 mg/dL (75-99)
[2018-05-08] MEDS: LEVOFLOXACIN 500MG-D5W PMX 500 MG in DEXTROSE/WATER 1 100ML.BAG IVPB SCH (13:54)
[2018-05-08 17:10] LABS: Glucose,Whole Blood 129 mg/dL (75-99)
[2018-05-08 21:09] LABS: Glucose,Whole Blood 169 mg/dL (75-99)
[2018-05-08] MEDS: DIAZEPAM 5 MG TAB PO PRN (22:20)
--- NOTE | 2018-05-08 23:37 | P.PN ---
Subjective Progress Note Date: 05/08/18 Principal diagnosis: Colitis Patient is a 72-year-old female with a known history of diabetes type 2, recent history of diverticulitis came to ER with complaints of abdominal pain, nausea vomiting and diarrhea. Patient was treated with antibiotics for acute diverticulitis about a month ago. For the past 2 days patient has been having nausea vomiting and diarrhea and abdominal pain. Patient did notice some blood in her vomit as well. Patient came to ER for further evaluation. Otherwise denied any fever or chills. No headache or dizziness lightheadedness. No chest shortness of breath. Patient was seen by her primary care physician who did recommend she be presented to emergency department for evaluation given that she has had persistent symptoms. CT of the abdomen pelvis showed correlate for possible colitis. Interventional improvement in the inflammatory changes in the pelvis, extensive diverticulosis. Indeterminate pulmonary nodules. 05/07/2018 Patient denied any complaints of nausea vomiting today. Abdominal pain improved. Diarrhea improved as well. Patient is being continued on antibiotics for colitis. Patient will be started on diet and advanced to soft as tolerated. No fever no chills. No chest pain or shortness of breath. No other acute overnight issues otherwise. 05/07/2018 Patient is tolerating oral diet. Patient did have a small bowel movement this morning. Abdominal pain is much improved now. Advance diet as tolerated. No fever no chills. No headache or dizziness or lightheadedness. Anticipate discharge in next 24 hours with more clinical improvement. Current medications reviewed Objective - Vital Signs Vital signs: Vital Signs Temp 98.7 F 05/08/18 20:30 Pulse 89 05/08/18 20:30 Resp 16 05/08/18 20:30 BP 135/69 05/08/18 20:30 Pulse Ox 96 05/08/18 20:30 Intake & Output 05/08/18 05/08/18 05/09/18 06:59 18:59 06:59 Intake Total 1480 Balance 1480 Intake: Intake, IV Titration 1000 Amount Sodium Chloride 0.9% 1, 900 000 ml @ 75 mls/hr IV . [id number] PAUL Rx#:[id number] metroNIDAZOLE-NS PMX 500 100 mg In Saline 1 100ml.bag @ 100 mls/hr IVPB Q8HR PAUL Rx#:[id number] Oral 480 Other: Voiding Method Toilet # Voids 2 - Exam PHYSICAL EXAMINATION: Patient is lying in the bed comfortably, no acute distress, awake alert and oriented.. HEENT: Normocephalic. Neck is supple. Pupils reactive. Nostrils clear. Oral cavity is moist. Ears reveal no drainage. Neck reveals no JVD, carotid bruits, or thyromegaly. CHEST EXAMINATION: Trachea is central. Symmetrical expansion. Lung olivares clear to auscultation and percussion. CARDIAC: Normal S1, S2 with no gallops. No murmurs ABDOMEN: Soft. Bowel sounds normal. No organomegaly. No abdominal bruits. Extremities: reveal no edema. No clubbing or cyanosis Neurologically awake, alert, oriented x3 with well-coordinated movements. No focal deficits noted Skin: No rash or skin lesions. Psychiatric: Coperative. Nonsuicidal Musculoskeletal: No joint swelling or deformity. Normal range of motion. - Labs CBC & Chem 7: 05/06/18 12:45 05/06/18 12:45 Labs: Abnormal Lab Results - Last 24 Hours (Table) 05/08/18 05/08/18 05/08/18 Range/Units 07:54 11:45 16:51 POC Glucose (mg/dL) 137 H 185 H 129 H (75-99) mg/dL 05/08/18 Range/Units 20:58 POC Glucose (mg/dL) 169 H (75-99) mg/dL Microbiology - Last 24 Hours (Table) 05/06/18 20:38 Urine Culture - Preliminary Urine,Clean Catch Gram Neg Bacilli Assessment and Plan Assessment: Nausea vomiting and diarrhea due to acute colitis. Gram-negative bacilli urinary tract infection Streaks of blood with emesis. Likely mucosal excoriation. No active bleeding noted. FOBT negative Recently treated diverticulitis Significant diverticulosis Diabetes type 2 [id number]-[id number] Morbid obesity BMI 37.2 DVT prophylaxis with SCDs Plan: Patient be continued on symptomatic management for nausea and vomiting. Continue with antibiotics of Levaquin and Flagyl. Patient says that she did have metallic taste with Flagyl by mouth. Continue with IV Flagyl which patient is tolerating now. Continue the home diabetic medications. Continue with IV Protonix and monitor H&H. IV hydration. Follow-up urine culture showed gram-negative bacilli. Follow up closely and further recommendations based on the clinical course. Time with Patient: Greater than 30
[2018-05-09 07:08] LABS: Glucose,Whole Blood 184 mg/dL (75-99)
[2018-05-09] MEDS: INSULIN ASPART 100 UNIT/ML 1 ML 10 ML VIAL SQ SCH ×2 (08:40→13:32)
[2018-05-09] MEDS: SODIUM CHLORIDE 0.9% 1,000 ML IV SCH (10:55)
[2018-05-09] MEDS: PANTOPRAZOLE 40 MG/10 ML VIAL IVP SCH (10:56)
[2018-05-09] MEDS: DICYCLOMINE 20 MG TAB PO SCH ×2 (10:58→13:31)
[2018-05-09] MEDS: SERTRALINE 50 MG TAB PO SCH (10:58)
[2018-05-09] MEDS: PIOGLITAZONE 45 MG TAB PO SCH (10:58)
[2018-05-09] MEDS: metroNIDAZOLE 500 MG TAB PO SCH ×2 (10:59→17:12)
[2018-05-09 11:59] LABS: Glucose,Whole Blood 150 mg/dL (75-99)
[2018-05-09 16:14] VITALS: BP 129/62; PULSE 88; RESP 18; TEMP 97.9
[2018-05-09] MEDS: LEVOFLOXACIN 500MG-D5W PMX 500 MG in DEXTROSE/WATER 1 100ML.BAG IVPB SCH (17:12)
[2018-05-09 17:19] LABS: Glucose,Whole Blood 153 mg/dL (75-99)
== END 2018-05-09 18:41 | disposition home or self-care (01) | DRG 392 ==
LOC: EC 12:12 → 4SSUR 15:15
PROVIDERS: ADMIT Internal Medicine; ATTEND Internal Medicine
DX: K52.9 Noninfective gastroenteritis and colitis, unspecified (principal); N39.0 Urinary tract infection, site not specified; K57.90 Diverticulosis of intestine, part unspecified, without perforation or abscess without bleeding; E11.9 Type 2 diabetes mellitus without complications; E66.01 Morbid (severe) obesity due to excess calories; Z68.37 Body mass index [BMI] 37.0-37.9, adult; Z79.84 Long term (current) use of oral hypoglycemic drugs; Z79.899 Other long term (current) drug therapy; Z80.3 Family history of malignant neoplasm of breast; Z82.49 Family history of ischemic heart disease and other diseases of the circulatory system; Z90.710 Acquired absence of both cervix and uterus; Z88.1 Allergy status to other antibiotic agents; Z88.2 Allergy status to sulfonamides; Z88.8 Allergy status to other drugs, medicaments and biological substances; B96.89 Other specified bacterial agents as the cause of diseases classified elsewhere
CPT/HCPCS: 36415; 74177; 80053; 81001; 82150; 82272; 83036; 83605; 83690; 85025; 87077; 87086; 87186; 96365; 96375; 99285

== ENCOUNTER → 2020-06-03 | Outpatient (CLI) | payer MEDICARE, OTHER ==
--- NOTE | 2020-06-03 17:32 | BD ---
EXAMINATION TYPE: Axial Bone Density DATE OF EXAM: 06/03/2020 COMPARISON: NONE CLINICAL HISTORY: Postmenopausal screening Height: 62.2 IN Weight: 205 LBS FRAX RISK QUESTIONS: History of Fracture in Adulthood: RT SHOULDER AGE 57, RT ANKLE AGE 59; RT FOREARM AGE 60 RISK FACTORS HISTORY OF: Active: MODERATE Postmenopausal woman: TOTAL HYST AGE 56 MEDICATIONS: Additional Medications: VIT D,DIABETES MEDS, ATORVASTATIN, PIOGLITAZONE, METFORMIN,GLIMIPERIDE EXAM MEASUREMENTS: Bone mineral densitometry was performed using the [employer] System. Bone mineral density as measured about the Lumbar spine is: ----- L1-L4(G/cm2): 1.146 T Score Values are as follows: ----- L2: 0.1 ----- L3: 0.0 ----- L4: -0.7 ----- L1-L4: -0.3 Bone mineral density BASELINE Bone mineral density about the R hip (g/cm2): 0.660 Bone mineral density about the L hip (g/cm2): 0.706 T Score values are as follows: -----R Neck: -2.4 -----L Neck: -2.7 -----R Total: -2.2 -----L Total: -2.2 Bone mineral density BASELINE IMPRESSION: Osteoporosis (T Score less than -2.5). There is increased fracture risk and therapy is usually indicated based on age. Re-Screen 1-2 years. NOTE: T-SCORE=SD OF THE YOUNG ADULT MEAN.
--- NOTE | 2020-06-04 12:25 | MM ---
Reason for exam: screening (asymptomatic). Last mammogram was performed 2 years and 10 months ago. History: Patient is postmenopausal. Physical Findings: A clinical breast exam by your physician is recommended on an annual basis and results should be correlated with mammographic findings. MG 3D Screening Mammo W/Cad Bilateral CC and MLO view(s) were taken. Prior study comparison: August 04, 2017, bilateral MG screening mammo w CAD. There are scattered fibroglandular densities. Medial mole on the left. No significant changes when compared with prior studies. ASSESSMENT: Negative, BI-RAD 1 RECOMMENDATION: Routine screening mammogram of both breasts in 1 year.
== END | disposition home or self-care (01) ==
LOC: RADMAMWWP 14:47
PROVIDERS: ATTEND Family Medicine
DX: Z12.31 Encounter for screening mammogram for malignant neoplasm of breast (principal); Z13.820 Encounter for screening for osteoporosis; M81.0 Age-related osteoporosis without current pathological fracture
CPT/HCPCS: 77063; 77067; 77080

== ENCOUNTER 2020-07-21 18:28 | Inpatient (IN) | payer MEDICARE, OTHER ==
[2020-07-21] MEDS: SODIUM CHLORIDE 0.9% 500 ML 500 ML IV SCH ×3 (19:39→20:41)
[2020-07-21 19:52] LABS: Basophils % (A) 0 %; Eosinophils # (A) 0.2 k/uL (0-0.7); Eosinophils % (A) 1 %; HCT 36.8 % (34.0-46.0); Lymphocytes # (A) 1.3 k/uL (1.0-4.8); Lymphocytes % (A) 8 %; MCH 28.9 pg (25.0-35.0); MCHC 32.6 g/dL (31.0-37.0); MCV 88.7 fL (80.0-100.0); Mean Platelet Volume 7.2; Monocytes # (A) 1.3 k/uL (0-1.0); Monocytes % (A) 7 %; Neutrophils # (A) 14.6 k/uL (1.3-7.7); Neutrophils % (A) 83 %; Platelet Count 338 k/uL (150-450); RBC 4.15 m/uL (3.80-5.40); RDW 14.9 % (11.5-15.5); WBC 17.6 k/uL (3.8-10.6)
[2020-07-21 20:02] LABS: Albumin 3.7 g/dL (3.5-5.0); Magnesium 1.4 mg/dL (1.6-2.3); Potassium 4.1 mmol/L (3.5-5.1); Total Bilirubin 0.7 mg/dL (0.2-1.3); Total Protein 6.6 g/dL (6.3-8.2)
--- NOTE | 2020-07-21 20:13 | ED ---
General Adult HPI - General Chief complaint: Fever Stated complaint: Diarhea Time Seen by Provider: 07/21/20 18:42 Source: patient Mode of arrival: wheelchair Limitations: no limitations - History of Present Illness Initial comments: Ingris is a 74-year-old female presents the ER today for evaluation of fever and diarrhea. Patient reports that she's been having diarrhea for approximately 3 weeks, she is notified her primary care physician about this and he advised her to continue oral rehydration therapy. She reports that over the past week she's had abdominal pain is been progressively worsening. Today she noticed fever and had some vomiting at which time she decided to come to the ER for further evaluation. Patient denies any dysuria or hematuria or lower urinary tract symptoms. Patient does report the symptoms began approximately one week after receiving her first COVID vaccine. - Related Data Home Medications Medication Instructions Recorded Confirmed Glimepiride [Amaryl] 4 mg PO W/SUPPER 05/06/18 07/21/20 metFORMIN HCL [Glucophage] 500 mg PO BID 05/06/18 07/21/20 Amoxicillin/Potassium Clav 1 tab PO BID 07/21/20 07/21/20 [Augmentin 875-125 Tablet] Atorvastatin [Lipitor] 20 mg PO HS 07/21/20 07/21/20 Calcium Carbonate 500 mg PO DAILY 07/21/20 07/21/20 Multivitamins, Thera [Multivitamin 1 tab PO DAILY 07/21/20 07/21/20 (formulary)] Sertraline HCl [Zoloft] 100 mg PO DAILY 07/21/20 07/21/20 Allergies Allergy/AdvReac Type Severity Reaction Status Date / Time prednisone Allergy Unknown Verified 07/21/20 19:55 Sulfa (Sulfonamide Allergy Unknown Verified 07/21/20 19:55 Antibiotics) Review of Systems ROS Statement: Those systems with pertinent positive or pertinent negative responses have been documented in the HPI. ROS Other: All systems not noted in ROS Statement are negative. Past Medical History Past Medical History: Diabetes Mellitus Additional Past Medical History / Comment(s): migraines History of Any Multi-Drug Resistant Organisms: None Reported Past Surgical History: Hysterectomy Additional Past Surgical History / Comment(s): basal cell cancer removed -lt side of chin, lasik eye sx, cochlear implant lt Past Anesthesia/Blood Transfusion Reactions: No Reported Reaction Additional Past Anesthesia/Blood Transfusion Reaction / Comment(s): mild clausterphobia Past Psychological History: No Psychological Hx Reported Smoking Status: Never smoker Past Alcohol Use History: None Reported Past Drug Use History: None Reported - Past Family History Mother Family Medical History: Cancer, Coronary Artery Disease (CAD) Additional Family Medical History / Comment(s): breast cancer. triple vessel cabg- age 95 Father Family Medical History: Cancer Additional Family Medical History / Comment(s): age 62 General Exam - General Exam Comments Initial Comments: Physical Exam GENERAL: Patient is well-developed and well-nourished. Patient is nontoxic and well- hydrated and is in no distress. HENT: Normocephalic, Atraumatic. EYES: PERRL, EOMI PULMONARY: Unlabored respirations. No audible rales rhonchi or wheezing was noted. CARDIOVASCULAR: There is a regular rate and rhythm without any murmurs gallops or rubs. ABDOMEN: Soft and nontender with normal bowel sounds. SKIN: Skin is clear with no lesions or rashes and otherwise unremarkable. : Deferred NEUROLOGIC: Patient is alert and oriented x3. Moving all extremities spontaneously MUSCULOSKELETAL: Normal extremities with adequate strength and full range of motion. No lower extremity swelling or edema. No calf tenderness. PSYCHIATRIC: Normal psychiatric evaluation. Limitations: no limitations Course Vital Signs 07/21/20 07/21/20 18:35 19:45 Temperature 100.8 F H 100.0 F H Pulse Rate 125 H 104 H Respiratory 18 20 Rate Blood Pressure 117/65 157/69 O2 Sat by Pulse 96 96 Oximetry EKG Findings - EKG Comments: EKG Findings:: She was obtained due to plain of cardiac, EKG was obtained at 194 2, there is poor baseline due to movement artifact, there does appear to be P waves before each QRS with a sinus tachycardia others no acute ST elevations or depressions no evidence of ischemia or infarction Medical Decision Making - Lab Data Result diagrams: 07/21/20 19:04 07/21/20 19:04 Lab Results 07/21/20 07/21/20 07/21/20 Range/Units 19:04 19:04 19:04 WBC 17.6 H (3.8-10.6) k/uL RBC 4.15 (3.80-5.40) m/uL Hgb 12.0 (11.4-16.0) gm/dL Hct 36.8 (34.0-46.0) % MCV 88.7 (80.0-100.0) fL MCH 28.9 (25.0-35.0) pg MCHC 32.6 (31.0-37.0) g/dL RDW 14.9 (11.5-15.5) % Plt Count 338 (150-450) k/uL MPV 7.2 Neutrophils % 83 % Lymphocytes % 8 % Monocytes % 7 % Eosinophils % 1 % Basophils % 0 % Neutrophils # 14.6 H (1.3-7.7) k/uL Lymphocytes # 1.3 (1.0-4.8) k/uL Monocytes # 1.3 H (0-1.0) k/uL Eosinophils # 0.2 (0-0.7) k/uL Basophils # 0.0 (0-0.2) k/uL PT (9.0-12.0) sec INR (<1.2) APTT (22.0-30.0) sec Sodium 135 L (137-145) mmol/L Potassium 4.1 (3.5-5.1) mmol/L Chloride 102 (98-107) mmol/L Carbon Dioxide 25 (22-30) mmol/L Anion Gap 8 mmol/L BUN 18 H (7-17) mg/dL Creatinine 0.83 (0.52-1.04) mg/dL Est GFR (CKD-EPI)AfAm 81 (>60 ml/min/1.73 sqM) Est GFR (CKD-EPI)NonAf 71 (>60 ml/min/1.73 sqM) Glucose 103 H (74-99) mg/dL Plasma Lactic Acid Leroy 2.4 H* (0.7-2.0) mmol/L Calcium 9.0 (8.4-10.2) mg/dL Magnesium 1.4 L (1.6-2.3) mg/dL Total Bilirubin 0.7 (0.2-1.3) mg/dL AST 22 (14-36) U/L ALT 12 (4-34) U/L Alkaline Phosphatase 102 (38-126) U/L Total Protein 6.6 (6.3-8.2) g/dL Albumin 3.7 (3.5-5.0) g/dL 07/21/20 Range/Units 20:34 WBC (3.8-10.6) k/uL RBC (3.80-5.40) m/uL Hgb (11.4-16.0) gm/dL Hct (34.0-46.0) % MCV (80.0-100.0) fL MCH (25.0-35.0) pg MCHC (31.0-37.0) g/dL RDW (11.5-15.5) % Plt Count (150-450) k/uL MPV Neutrophils % % Lymphocytes % % Monocytes % % Eosinophils % % Basophils % % Neutrophils # (1.3-7.7) k/uL Lymphocytes # (1.0-4.8) k/uL Monocytes # (0-1.0) k/uL Eosinophils # (0-0.7) k/uL Basophils # (0-0.2) k/uL PT 10.5 (9.0-12.0) sec INR 1.0 (<1.2) APTT 16.9 L (22.0-30.0) sec Sodium (137-145) mmol/L Potassium (3.5-5.1) mmol/L Chloride (98-107) mmol/L Carbon Dioxide (22-30) mmol/L Anion Gap mmol/L BUN (7-17) mg/dL Creatinine (0.52-1.04) mg/dL Est GFR (CKD-EPI)AfAm (>60 ml/min/1.73 sqM) Est GFR (CKD-EPI)NonAf (>60 ml/min/1.73 sqM) Glucose (74-99) mg/dL Plasma Lactic Acid Leroy (0.7-2.0) mmol/L Calcium (8.4-10.2) mg/dL Magnesium (1.6-2.3) mg/dL Total Bilirubin (0.2-1.3) mg/dL AST (14-36) U/L ALT (4-34) U/L Alkaline Phosphatase (38-126) U/L Total Protein (6.3-8.2) g/dL Albumin (3.5-5.0) g/dL Disposition Clinical Impression: Diverticulitis, Rectal abscess, Sepsis Disposition: ADMITTED IP TO THIS HOSP Condition: Stable Is patient prescribed a controlled substance at d/c from ED?: No Referrals: Wily Kamara MD [Primary Care Provider] - 1-2 days
[2020-07-21 21:25] LABS: Prothrombin Time 10.5 sec (9.0-12.0)
[2020-07-21 21:26] LABS: Partial Thromboplastin Time 16.9 sec (22.0-30.0)
--- NOTE | 2020-07-21 21:31 | CT ---
EXAMINATION TYPE: CT abdomen pelvis w con DATE OF EXAM: 07/21/2020 COMPARISON: 04/28/2018 HISTORY: abdominal pain CT DLP: 1551.6 mGycm Automated exposure control for dose reduction was used. CONTRAST: Performed with IV Contrast, patient injected with 100 mL of Isovue 300. There is noncalcified 1 cm nodule in the right middle lobe unchanged. There is no pulmonary lower lob e infiltrate. Heart size is normal. There is no pleural effusion. There is no pericardial effusion. There is hiatal hernia. The stomach is intact. Gallbladder is intact. The bile ducts are not dilated. Liver and spleen appear intact. There is no adrenal mass. Kidneys show satisfactory contrast opacification. There is no hydronephrosi s. There is 3.5 cm exophytic rounded density lateral left kidney consistent with cortical cyst slight ly increased compared to old exam. There is no retroperitoneal adenopathy. Ureters are not dilated. T here is anterior abdominal wall incarcerated hernia containing omental fat. This measures 6 cm in meghan meter. Bladder distends smoothly. There is fat stranding around the rectum. There is presacral fluid. There are multiple sigmoid divert icula. I see no free air. There is no ascites. There is no evidence of a bowel obstruction. There is no evid ence of thickened appendix. IMPRESSION: There is moderate sigmoid diverticulosis. There is moderate fat stranding in the pelvis involving dis henry sigmoid colon and proximal rectum consistent with diverticulitis. There is small extraluminal air bubbles on the left lateral wall of the rectum. This area measures 2.5 cm. There is moderate perirec henry edema with presacral fluid. Inflammatory changes are new compared to old exam.
[2020-07-21] MEDS ORDERED: NALOXONE 0.4 MG/ML 1 ML VIAL IV PRN (21:49)
[2020-07-21] MEDS: SODIUM CHLORIDE 0.9% 1,000 ML IV SCH (22:01)
[2020-07-21 22:39] LABS: Appearance,Urine Clear (Clear); Bilirubin,Urine Negative (Negative); Blood,Urine Negative (Negative); Color,Urine Yellow; Glucose,Urine (UA) Negative (Negative); Ketones,Urine Negative (Negative); Leukocyte Esterase,Urine Small (Negative); Mucus,Urine Rare /hpf; Nitrite,Urine Negative (Negative); PH, Urine 5.5 (5.0-8.0); Protein,Urine Trace (Negative); RBC,Urine 1 /hpf (0-5); Squamous Epithelial Cell,Urine 1 /hpf (0-4); Urobilinogen,Urine <2.0 mg/dL (<2.0); WBC,Urine 16 /hpf (0-5)
[2020-07-22] MEDS: MORPHINE SULFATE 4 MG/ML SYRINGE IV PRN (00:43)
[2020-07-22] MEDS: PIPERACILLIN-TAZOBACTAM 3.375 GM in SODIUM CHLORIDE 0.9% 100 ML IVPB SCH ×2 (08:39→16:53)
[2020-07-22 10:07] LABS: ALT 9 U/L (4-34); AST 17 U/L (14-36); African American GFR (CKD) >90 (>60 ml/min/1.73 sqM); Albumin 2.8 g/dL (3.5-5.0); Alkaline Phosphatase 72 U/L (38-126); Anion Gap 7 mmol/L; Blood Urea Nitrogen 13 mg/dL (7-17); Calcium 7.8 mg/dL (8.4-10.2); Carbon Dioxide 21 mmol/L (22-30); Chloride 110 mmol/L (98-107); Glucose 76 mg/dL (74-99); Non-African American GFR(CKD) 87 (>60 ml/min/1.73 sqM); Potassium 3.7 mmol/L (3.5-5.1); Sodium 138 mmol/L (137-145); Total Bilirubin 0.5 mg/dL (0.2-1.3); Total Protein 5.4 g/dL (6.3-8.2)
[2020-07-22 10:15] LABS: Basophils % (A) 0 %; Eosinophils # (A) 0.1 k/uL (0-0.7); Eosinophils % (A) 1 %; HCT 32.7 % (34.0-46.0); HGB 10.5 gm/dL (11.4-16.0); Lymphocytes # (A) 2.1 k/uL (1.0-4.8); Lymphocytes % (A) 18 %; MCH 28.9 pg (25.0-35.0); MCHC 32.2 g/dL (31.0-37.0); MCV 89.8 fL (80.0-100.0); Monocytes # (A) 0.8 k/uL (0-1.0); Monocytes % (A) 7 %; Neutrophils # (A) 8.7 k/uL (1.3-7.7); Neutrophils % (A) 73 %; Platelet Count 279 k/uL (150-450); RBC 3.64 m/uL (3.80-5.40); RDW 15.4 % (11.5-15.5); WBC 11.8 k/uL (3.8-10.6)
[2020-07-22] MEDS: SODIUM CHLORIDE 0.9% 1,000 ML IV SCH ×3 (10:22→21:56)
--- NOTE | 2020-07-22 13:57 | P.GSHP ---
History of Present Illness H&P Date: 07/22/20 CHIEF COMPLAINT: Abdominal pain HISTORY OF PRESENT ILLNESS: This is a 74-year-old female with a past medical history of 1 prior episode of diverticulitis, diabetes mellitus, hyperlipidemia and depression. She has a surgical history of hysterectomy. Patient presents to the emergency room with left lower quadrant abdominal pain that started yesterday. Apparently patient has been having diarrhea for 3 weeks. She also had fever at home with vomiting. On admission patient had a temp of 100.8 and had been tachycardic with elevated lactic acid level. Patient had computed tomography scan of the abdomen and pelvis showed moderate sigmoid diverticulosis. There is moderate fat stranding in the pelvis involving distal sigmoid colon and proximal rectum consistent with diverticulitis. There is small extraluminal air bubbles on the left lateral wall of the rectum. This area measures 2.5 cm. There is moderate perirectal edema with presacral fluid. Patient has been admitted to the hospital for an acute diverticulitis Patient seen and examined with Dr. jo. PAST MEDICAL HISTORY: See list. PAST SURGICAL HISTORY: See list. MEDICATIONS: See list. ALLERGIES: See list. SOCIAL HISTORY: No illicit drug use. REVIEW OF SYSTEMS: CONSTITUTIONAL: Denies fever or chills. HEENT: Denies blurred vision, vision changes, or eye pain. Denies hemoptysis CARDIOVASCULAR: Denies chest pain or pressure. RESPIRATORY: No shortness of breath. GASTROINTESTINAL: See HPI for pertinent findings HEMATOLOGIC: Denies bleeding disorders. GENITOURINARY: Denies any blood in urine or increased urinary frequency. SKIN: Denies pruitis. Denies rash. PHYSICAL EXAM: VITAL SIGNS: Reviewed GENERAL: Well-developed in no acute distress. HEENT: No sclera icterus. Extraocular movements grossly intact. Moist buccal mucosa. Head is atraumatic, normocephalic. No nasal drainage. ABDOMEN: Soft. Nondistended. Tenderness on palpation of the left lower quadrant NEUROLOGIC: Alert and oriented. Cranial nerves II through XII grossly intact. LABORATORY DATA: WBC 17.6 down to 11.8 Hgb 10.5 creatinine 0.68 lactic 2.4 down to 0.8 Magnesium 1.4 IMAGING: computed tomography scan of the abdomen and pelvis showed moderate sigmoid diverticulosis. There is moderate fat stranding in the pelvis involving distal sigmoid colon and proximal rectum consistent with diverticulitis. There is small extraluminal air bubbles on the left lateral wall of the rectum. This area measures 2.5 cm. There is moderate perirectal edema with presacral fluid. ASSESSMENT: 1. Acute diverticulitis involving distal sigmoid colon and proximal rectum with microperforation with sepsis present on admission 2. Hypomagnesemia PLAN: -Continue conservative management -Continue supportive care -Continue IV fluids -Continue IV Zosyn -Follow up on blood cultures -Keep patient nothing by mouth -Continue pain medication as needed -Replace magnesium -Medicine consulted for medical management -GI prophylaxis Protonix -DVT prophylaxis subcu heparin Physician Emergency Vehicle Operations Instructor note has been reviewed by physician. Signing provider agrees with the documented findings, assessment, and plan of care. Past Medical History Past Medical History: Diabetes Mellitus Additional Past Medical History / Comment(s): migraines, Auguest 1997 TIA, History of Any Multi-Drug Resistant Organisms: None Reported Past Surgical History: Hysterectomy Additional Past Surgical History / Comment(s): basal cell cancer removed -lt side of chin, lasik eye sx, cochlear implant lt Past Anesthesia/Blood Transfusion Reactions: No Reported Reaction Additional Past Anesthesia/Blood Transfusion Reaction / Comment(s): mild clausterphobia Past Psychological History: No Psychological Hx Reported Smoking Status: Former smoker Past Alcohol Use History: None Reported Additional Past Alcohol Use History / Comment(s): started smoking age 18(1963) an d quit age 28(1973) smoked 1/2 ppd Past Drug Use History: None Reported - Past Family History Mother Family Medical History: Cancer, Coronary Artery Disease (CAD) Additional Family Medical History / Comment(s): breast cancer. triple vessel cabg- age 95 Father Family Medical History: Cancer Additional Family Medical History / Comment(s): age 62 Medications and Allergies Home Medications Medication Instructions Recorded Confirmed Type Glimepiride [Amaryl] 4 mg PO W/SUPPER 05/06/18 07/21/20 History metFORMIN HCL [Glucophage] 500 mg PO BID 05/06/18 07/21/20 History Amoxicillin/Potassium Clav 1 tab PO BID 07/21/20 07/21/20 History [Augmentin 875-125 Tablet] Atorvastatin [Lipitor] 20 mg PO HS 07/21/20 07/21/20 History Calcium Carbonate 500 mg PO DAILY 07/21/20 07/21/20 History Multivitamins, Thera [Multivitamin 1 tab PO DAILY 07/21/20 07/21/20 History (formulary)] Sertraline HCl [Zoloft] 100 mg PO DAILY 07/21/20 07/21/20 History Allergies Allergy/AdvReac Type Severity Reaction Status Date / Time prednisone Allergy Unknown Verified 07/21/20 19:55 Sulfa (Sulfonamide Allergy Unknown Verified 07/21/20 19:55 Antibiotics) Surgical - Exam Vital Signs Temp Pulse Resp BP Pulse Ox 100.8 F H 125 H 18 117/65 96 07/21/20 18:35 07/21/20 18:35 07/21/20 18:35 07/21/20 18:35 07/21/20 18:35 Results - Labs 07/22/20 09:32 07/22/20 09:32 Abnormal Lab Results - Last 24 Hours (Table) 07/21/20 07/21/20 07/21/20 Range/Units 19:04 19:04 19:04 WBC 17.6 H (3.8-10.6) k/uL RBC (3.80-5.40) m/uL Hgb (11.4-16.0) gm/dL Hct (34.0-46.0) % Neutrophils # 14.6 H (1.3-7.7) k/uL Monocytes # 1.3 H (0-1.0) k/uL APTT (22.0-30.0) sec Sodium 135 L (137-145) mmol/L Chloride (98-107) mmol/L Carbon Dioxide (22-30) mmol/L BUN 18 H (7-17) mg/dL Glucose 103 H (74-99) mg/dL Plasma Lactic Acid Leroy 2.4 H* (0.7-2.0) mmol/L Calcium (8.4-10.2) mg/dL Magnesium 1.4 L (1.6-2.3) mg/dL Total Protein (6.3-8.2) g/dL Albumin (3.5-5.0) g/dL Ur Specific [place] (1.001-1.035) Urine Protein (Negative) Ur Leukocyte Esterase (Negative) Urine WBC (0-5) /hpf Urine Mucus (None) /hpf 07/21/20 07/21/20 07/22/20 Range/Units 19:04 20:34 09:32 WBC 11.8 H (3.8-10.6) k/uL RBC 3.64 L (3.80-5.40) m/uL Hgb 10.5 L (11.4-16.0) gm/dL Hct 32.7 L (34.0-46.0) % Neutrophils # 8.7 H (1.3-7.7) k/uL Monocytes # (0-1.0) k/uL APTT 16.9 L (22.0-30.0) sec Sodium (137-145) mmol/L Chloride (98-107) mmol/L Carbon Dioxide (22-30) mmol/L BUN (7-17) mg/dL Glucose (74-99) mg/dL Plasma Lactic Acid Leroy (0.7-2.0) mmol/L Calcium (8.4-10.2) mg/dL Magnesium (1.6-2.3) mg/dL Total Protein (6.3-8.2) g/dL Albumin (3.5-5.0) g/dL Ur Specific [place] 1.050 H (1.001-1.035) Urine Protein Trace H (Negative) Ur Leukocyte Esterase Small H (Negative) Urine WBC 16 H (0-5) /hpf Urine Mucus Rare H (None) /hpf 07/22/20 Range/Units 09:32 WBC (3.8-10.6) k/uL RBC (3.80-5.40) m/uL Hgb (11.4-16.0) gm/dL Hct (34.0-46.0) % Neutrophils # (1.3-7.7) k/uL Monocytes # (0-1.0) k/uL APTT (22.0-30.0) sec Sodium (137-145) mmol/L Chloride 110 H (98-107) mmol/L Carbon Dioxide 21 L (22-30) mmol/L BUN (7-17) mg/dL Glucose (74-99) mg/dL Plasma Lactic Acid Leroy (0.7-2.0) mmol/L Calcium 7.8 L (8.4-10.2) mg/dL Magnesium (1.6-2.3) mg/dL Total Protein 5.4 L (6.3-8.2) g/dL Albumin 2.8 L (3.5-5.0) g/dL Ur Specific [place] (1.001-1.035) Urine Protein (Negative) Ur Leukocyte Esterase (Negative) Urine WBC (0-5) /hpf Urine Mucus (None) /hpf Diabetes panel 07/21/20 07/22/20 Range/Units 19:04 09:32 Sodium 135 L 138 (137-145) mmol/L Potassium 4.1 3.7 (3.5-5.1) mmol/L Chloride 102 110 H (98-107) mmol/L Carbon Dioxide 25 21 L (22-30) mmol/L BUN 18 H 13 (7-17) mg/dL Creatinine 0.83 0.68 (0.52-1.04) mg/dL Glucose 103 H 76 (74-99) mg/dL Calcium 9.0 7.8 L (8.4-10.2) mg/dL AST 22 17 (14-36) U/L ALT 12 9 (4-34) U/L Alkaline Phosphatase 102 72 (38-126) U/L Total Protein 6.6 5.4 L (6.3-8.2) g/dL Albumin 3.7 2.8 L (3.5-5.0) g/dL Calcium panel 07/21/20 07/22/20 Range/Units 19:04 09:32 Calcium 9.0 7.8 L (8.4-10.2) mg/dL Albumin 3.7 2.8 L (3.5-5.0) g/dL Pituitary panel 07/21/20 07/22/20 Range/Units 19:04 09:32 Sodium 135 L 138 (137-145) mmol/L Potassium 4.1 3.7 (3.5-5.1) mmol/L Chloride 102 110 H (98-107) mmol/L Carbon Dioxide 25 21 L (22-30) mmol/L BUN 18 H 13 (7-17) mg/dL Creatinine 0.83 0.68 (0.52-1.04) mg/dL Glucose 103 H 76 (74-99) mg/dL Calcium 9.0 7.8 L (8.4-10.2) mg/dL Adrenal panel 07/21/20 07/22/20 Range/Units 19:04 09:32 Sodium 135 L 138 (137-145) mmol/L Potassium 4.1 3.7 (3.5-5.1) mmol/L Chloride 102 110 H (98-107) mmol/L Carbon Dioxide 25 21 L (22-30) mmol/L BUN 18 H 13 (7-17) mg/dL Creatinine 0.83 0.68 (0.52-1.04) mg/dL Glucose 103 H 76 (74-99) mg/dL Calcium 9.0 7.8 L (8.4-10.2) mg/dL Total Bilirubin 0.7 0.5 (0.2-1.3) mg/dL AST 22 17 (14-36) U/L ALT 12 9 (4-34) U/L Alkaline Phosphatase 102 72 (38-126) U/L Total Protein 6.6 5.4 L (6.3-8.2) g/dL Albumin 3.7 2.8 L (3.5-5.0) g/dL
[2020-07-22] MEDS ORDERED: MAGNESIUM SULFATE-D5W PMX 1 GM in DEXTROSE/WATER 1 100ML.BAG IVPB ONE (14:00)
[2020-07-22] MEDS: PANTOPRAZOLE 40 MG/10 ML VIAL IVP SCH (14:05)
[2020-07-22] MEDS: HEPARIN SODIUM,PORCINE 5,000 UNIT/ML 1 ML VIAL SQ SCH (20:40)
[2020-07-22] MEDS: ATORVASTATIN 20 MG TAB PO SCH (21:38)
[2020-07-22] MEDS: INSULIN ASPART (NovoLOG) 100 UNIT/ML VIAL SQ SCH (21:38)
[2020-07-22 21:41] LABS: Glucose,Whole Blood 63 mg/dL (75-99)
[2020-07-22] MEDS ORDERED: DEXTROSE 50% SYRINGE 50 ML IVP ONE (21:42)
[2020-07-22] MEDS: DEXTROSE 50% SYRINGE 50 ML IVP STA ×3 (21:51→21:55)
[2020-07-22 22:03] LABS: Glucose,Whole Blood 139 mg/dL (75-99)
--- NOTE | 2020-07-22 22:45 | P.CONS ---
History of Present Illness - Reason for Consult Consult date: 07/22/20 Medical management Requesting physician: Reginaldo Heaton - Chief Complaint Abdominal pain - History of Present Illness Consultation: This is a pleasant 74-year-old patient of Renata Diego. chronic stable medical conditions include diabetes, depression, hyperlipidemia, Sugey arthritis urinary incontinence. Patient started off 4 days ago with progressively worsening abdominal pain left lower quadrant. Accompanied by some fever and chills. Also nausea vomiting. Normally has a bowel movement every other day. Also some stool with some blood. Described as greasy. Computed tomography scan did confirm acute diverticulitis. Started antibiotics and be admitted for the same Review of systems: GEN.: Tired fever or chills EYES: None HEENT: None NECK: None RESPIRATORY: None CARDIOVASCULAR: None GASTROINTESTINAL: As above GENITOURINARY: None MUSCULOSKELETAL: Joint pains LYMPHATICS: None HEMATOLOGICAL: None PSYCHIATRY: None NEUROLOGICAL: None Past medical history to include: Diabetes, migraine, TIA, depression, hyperlipidemia, Sugey discitis, urinary incontinence, bases cell cancer that was removed, culture implant Social history: Lives with her . Smoked for 10 years stopped in 1973. No alcohol. Physical examination: VITAL SIGNS: 100.8, 125, 18, 117/65, 96% on room air GENERAL: BMI 36.4, laying in bed, awake. EYES: Pupils equal. Conjunctiva normal. HEENT: External appearance of nose and ears normal, oral cavity grossly normal. NECK: JVD not raised; masses not palpable. HEART: First and second heart sounds are normal; no edema. LUNGS: Respiratory rate normal; clear to auscultation. ABDOMEN: Soft, left lower abdomen tenderness with no guarding rigidity, liver spleen not palpable, no masses palpable. PSYCH: Alert and oriented x3; mood and affect normal. MUSCULAR skeletal: Evidence of OA NEUROLOGICAL: Cranial nerves grossly intact; no facial asymmetry, power and sensation grossly intact. LYMPHATICS: No lymph nodes palpable in the axilla and neck INVESTIGATIONS, reviewed in the clinical context: WBC 11.8 hemoglobin 10.5 platelets 279 potassium 3.7 creatinine 0.68 Admission labs: WBC 17.6 potassium 4.1 creatinine 0.83 lactic acid 2.4 Coronavirus [PCR]-not detected EKG tracing personally reviewed by me-heart rate 106 sinus rhythm Computed tomography scan of the abdomen illness with contrast: Left kidney 3.5 cm exophytic cyst. Abdominal wall hernia with omental fat. Multiple sigmoid diverticula. Stranding around the rectum. No free air. Small extraluminal air bubbles on the left rectal wall of the rectum. Moderate perirectal edema Assessment and plan: -Acute diverticulitis in the perirectal area with questionable microperforation. Patient is placed on IV Zosyn. IV fluids. Made nothing by mouth except for ice chips. -Obesity BMI 36.4. Patient to take weight loss measures and follow-up with his PCP. 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 Currently hold off Glucophage and Amaryl. Follow Accu-Cheks. Uncontrolled with hypoglycemia. Follow hypoglycemia protocol -Hyperlipidemia continue with Lipitor Care was discussed with the patient. Put on Accu-Cheks. Ice chips. DVT prophylaxis. Thank you Dr. Heaton Past Medical History Past Medical History: Diabetes Mellitus Additional Past Medical History / Comment(s): migraines, Auguest 1997 TIA, History of Any Multi-Drug Resistant Organisms: None Reported Past Surgical History: Hysterectomy Additional Past Surgical History / Comment(s): basal cell cancer removed -lt side of chin, lasik eye sx, cochlear implant lt Past Anesthesia/Blood Transfusion Reactions: No Reported Reaction Additional Past Anesthesia/Blood Transfusion Reaction / Comm: mild clausterphobia Past Psychological History: No Psychological Hx Reported Smoking Status: Former smoker Past Alcohol Use History: None Reported Additional Past Alcohol Use History / Comment(s): started smoking age 18(1963) an d quit age 28(1973) smoked 1/2 ppd Past Drug Use History: None Reported - Past Family History Mother Family Medical History: Cancer, Coronary Artery Disease (CAD) Additional Family Medical History / Comment(s): breast cancer. triple vessel cabg- age 95 Father Family Medical History: Cancer Additional Family Medical History / Comment(s): age 62 Medications and Allergies Home Medications Medication Instructions Recorded Confirmed Type Glimepiride [Amaryl] 4 mg PO W/SUPPER 05/06/18 07/21/20 History metFORMIN HCL [Glucophage] 500 mg PO BID 05/06/18 07/21/20 History Amoxicillin/Potassium Clav 1 tab PO BID 07/21/20 07/21/20 History [Augmentin 875-125 Tablet] Atorvastatin [Lipitor] 20 mg PO HS 07/21/20 07/21/20 History Calcium Carbonate 500 mg PO DAILY 07/21/20 07/21/20 History Multivitamins, Thera [Multivitamin 1 tab PO DAILY 07/21/20 07/21/20 History (formulary)] Sertraline HCl [Zoloft] 100 mg PO DAILY 07/21/20 07/21/20 History Allergies Allergy/AdvReac Type Severity Reaction Status Date / Time Sulfa (Sulfonamide Allergy Intermediate Nausea Verified 07/22/20 14:16 Antibiotics) prednisone Allergy Unknown Verified 07/22/20 14:16 Physical Exam Vitals: Vital Signs Temp Pulse Pulse Resp BP BP Pulse Ox 07/22/20 08:36 97.9 F 83 16 128/64 97 07/22/20 01:05 98.5 F 117 H 18 145/84 97 07/22/20 00:39 110 H 20 156/67 96 07/21/20 21:50 109 H 18 139/73 96 07/21/20 19:45 100.0 F H 104 H 20 157/69 96 07/21/20 18:35 100.8 F H 125 H 18 117/65 96 Intake and Output 07/21/20 07/22/20 07/22/20 22:59 06:59 14:59 Intake Total 756 Output Total 200 Balance 756 -200 Intake: Intake, IV Titration 756 Amount Sodium Chloride 0.9% 1, 756 000 ml @ 126 mls/hr IV . Q7H57M ON LICENSE OF [facility] Rx#:[id number] Output: Urine 200 Other: Voiding Method Toilet # Voids 1 Weight 93.2 kg Results CBC & Chem 7: 07/22/20 09:32 07/22/20 09:32 Labs: Abnormal Lab Results - Last 24 Hours (Table) 07/21/20 07/21/20 07/21/20 Range/Units 19:04 19:04 19:04 WBC 17.6 H (3.8-10.6) k/uL RBC (3.80-5.40) m/uL Hgb (11.4-16.0) gm/dL Hct (34.0-46.0) % Neutrophils # 14.6 H (1.3-7.7) k/uL Monocytes # 1.3 H (0-1.0) k/uL APTT (22.0-30.0) sec Sodium 135 L (137-145) mmol/L Chloride (98-107) mmol/L Carbon Dioxide (22-30) mmol/L BUN 18 H (7-17) mg/dL Glucose 103 H (74-99) mg/dL Plasma Lactic Acid Leroy 2.4 H* (0.7-2.0) mmol/L Calcium (8.4-10.2) mg/dL Magnesium 1.4 L (1.6-2.3) mg/dL Total Protein (6.3-8.2) g/dL Albumin (3.5-5.0) g/dL Ur Specific [place] (1.001-1.035) Urine Protein (Negative) Ur Leukocyte Esterase (Negative) Urine WBC (0-5) /hpf Urine Mucus (None) /hpf 07/21/20 07/21/20 07/22/20 Range/Units 19:04 20:34 09:32 WBC 11.8 H (3.8-10.6) k/uL RBC 3.64 L (3.80-5.40) m/uL Hgb 10.5 L (11.4-16.0) gm/dL Hct 32.7 L (34.0-46.0) % Neutrophils # 8.7 H (1.3-7.7) k/uL Monocytes # (0-1.0) k/uL APTT 16.9 L (22.0-30.0) sec Sodium (137-145) mmol/L Chloride (98-107) mmol/L Carbon Dioxide (22-30) mmol/L BUN (7-17) mg/dL Glucose (74-99) mg/dL Plasma Lactic Acid Leroy (0.7-2.0) mmol/L Calcium (8.4-10.2) mg/dL Magnesium (1.6-2.3) mg/dL Total Protein (6.3-8.2) g/dL Albumin (3.5-5.0) g/dL Ur Specific [place] 1.050 H (1.001-1.035) Urine Protein Trace H (Negative) Ur Leukocyte Esterase Small H (Negative) Urine WBC 16 H (0-5) /hpf Urine Mucus Rare H (None) /hpf 07/22/20 Range/Units 09:32 WBC (3.8-10.6) k/uL RBC (3.80-5.40) m/uL Hgb (11.4-16.0) gm/dL Hct (34.0-46.0) % Neutrophils # (1.3-7.7) k/uL Monocytes # (0-1.0) k/uL APTT (22.0-30.0) sec Sodium (137-145) mmol/L Chloride 110 H (98-107) mmol/L Carbon Dioxide 21 L (22-30) mmol/L BUN (7-17) mg/dL Glucose (74-99) mg/dL Plasma Lactic Acid Leroy (0.7-2.0) mmol/L Calcium 7.8 L (8.4-10.2) mg/dL Magnesium (1.6-2.3) mg/dL Total Protein 5.4 L (6.3-8.2) g/dL Albumin 2.8 L (3.5-5.0) g/dL Ur Specific [place] (1.001-1.035) Urine Protein (Negative) Ur Leukocyte Esterase (Negative) Urine WBC (0-5) /hpf Urine Mucus (None) /hpf
[2020-07-23] MEDS: PIPERACILLIN-TAZOBACTAM 3.375 GM in SODIUM CHLORIDE 0.9% 100 ML IVPB SCH ×3 (00:24→17:20)
[2020-07-23] MEDS: MORPHINE SULFATE 4 MG/ML SYRINGE IV PRN (01:45)
[2020-07-23 05:48] LABS: Basophils % (A) 0 %; Eosinophils # (A) 0.1 k/uL (0-0.7); Eosinophils % (A) 1 %; HCT 31.1 % (34.0-46.0); HGB 10.2 gm/dL (11.4-16.0); Lymphocytes # (A) 1.3 k/uL (1.0-4.8); Lymphocytes % (A) 15 %; MCH 29.8 pg (25.0-35.0); MCHC 32.9 g/dL (31.0-37.0); MCV 90.7 fL (80.0-100.0); Mean Platelet Volume 6.7; Monocytes # (A) 0.3 k/uL (0-1.0); Monocytes % (A) 4 %; Neutrophils # (A) 6.9 k/uL (1.3-7.7); Neutrophils % (A) 79 %; Platelet Count 284 k/uL (150-450); RBC 3.43 m/uL (3.80-5.40); RDW 15.2 % (11.5-15.5); WBC 8.7 k/uL (3.8-10.6)
[2020-07-23 05:56] LABS: African American GFR (CKD) >90 (>60 ml/min/1.73 sqM); Anion Gap 3 mmol/L; Blood Urea Nitrogen 12 mg/dL (7-17); Calcium 7.3 mg/dL (8.4-10.2); Carbon Dioxide 22 mmol/L (22-30); Chloride 111 mmol/L (98-107); Glucose 71 mg/dL (74-99); Magnesium 1.6 mg/dL (1.6-2.3); Non-African American GFR(CKD) 87 (>60 ml/min/1.73 sqM); Potassium 3.8 mmol/L (3.5-5.1); Sodium 136 mmol/L (137-145)
[2020-07-23 06:41] LABS: Glucose,Whole Blood 71 mg/dL (75-99)
[2020-07-23] MEDS: SODIUM CHLORIDE 0.9% 1,000 ML IV SCH ×2 (07:21→14:12)
[2020-07-23] MEDS: INSULIN ASPART (NovoLOG) 100 UNIT/ML VIAL SQ SCH ×4 (07:26→21:21)
[2020-07-23] MEDS ORDERED: MAGNESIUM SULFATE-D5W PMX 1 GM in DEXTROSE/WATER 1 100ML.BAG IVPB ONE (08:45)
[2020-07-23] MEDS: MULTIVITAMINS, THERA 1 EACH TAB PO SCH (08:46)
[2020-07-23] MEDS: PANTOPRAZOLE 40 MG/10 ML VIAL IVP SCH (08:46)
[2020-07-23] MEDS: HEPARIN SODIUM,PORCINE 5,000 UNIT/ML 1 ML VIAL SQ SCH ×2 (08:46→21:21)
[2020-07-23] MEDS: SERTRALINE 100 MG TAB PO SCH (08:46)
[2020-07-23] MEDS: HYDROcodone/APAP 5-325MG 1 EACH TAB PO PRN ×2 (09:05→21:21)
[2020-07-23 13:12] LABS: Glucose,Whole Blood 124 mg/dL (75-99)
--- NOTE | 2020-07-23 13:49 | P.PN ---
Subjective Progress Note Date: 07/23/20 CHIEF COMPLAINT: Abdominal pain HISTORY OF PRESENT ILLNESS: Patient is being followed for diverticulitis. She reports that her abdominal pain has improved. She is passing gas. She did have some hypoglycemia this morning. Patient was complaining of back pain this morning. Afebrile. WBC 8.7 Hgb 10.2 magnesium 1.6 blood cultures negative PHYSICAL EXAM: VITAL SIGNS: Reviewed. GENERAL: Well-developed in no acute distress. HEENT: No sclera icterus. Extraocular movements grossly intact. Moist buccal mucosa. Head is atraumatic, normocephalic. ABDOMEN: Soft. Nondistended. Nontender NEUROLOGIC: Alert and oriented. Cranial nerves II through XII grossly intact. ASSESSMENT: 1. Acute diverticulitis involving distal sigmoid colon and proximal rectum with microperforation with sepsis present on admission 2. Hypomagnesemia PLAN: -Advance diet to full liquids -Continue conservative management -Continue supportive care -Continue IV fluids -Continue IV Zosyn -Continue pain medication as needed -Replace magnesium -Encourage patient to ambulate -GI prophylaxis Protonix -DVT prophylaxis subcu heparin Physician Electrodynamicist note has been reviewed by physician. Signing provider agrees with the documented findings, assessment, and plan of care. Objective - Vital Signs Vital signs: Vital Signs Temp 98.7 F 07/23/20 08:00 Pulse 76 07/23/20 08:00 Resp 18 07/23/20 08:00 BP 108/45 07/23/20 08:00 Pulse Ox 97 07/23/20 08:00 Intake & Output 07/22/20 07/23/20 07/23/20 18:59 06:59 18:59 Intake Total 0 Output Total 850 100 Balance -850 -100 Intake: Oral 0 Output: Urine 850 100 Other: Voiding Method Toilet Toilet Toilet # Voids 3 1 - Labs CBC & Chem 7: 07/23/20 05:21 07/23/20 05:21 Labs: Abnormal Lab Results - Last 24 Hours (Table) 07/22/20 07/22/20 07/23/20 Range/Units 21:37 22:01 05:21 RBC 3.43 L (3.80-5.40) m/uL Hgb 10.2 L (11.4-16.0) gm/dL Hct 31.1 L (34.0-46.0) % Sodium (137-145) mmol/L Chloride (98-107) mmol/L Glucose (74-99) mg/dL POC Glucose (mg/dL) 63 L 139 H (75-99) mg/dL Calcium (8.4-10.2) mg/dL 07/23/20 07/23/20 07/23/20 Range/Units 05:21 06:40 13:11 RBC (3.80-5.40) m/uL Hgb (11.4-16.0) gm/dL Hct (34.0-46.0) % Sodium 136 L (137-145) mmol/L Chloride 111 H (98-107) mmol/L Glucose 71 L (74-99) mg/dL POC Glucose (mg/dL) 71 L 124 H (75-99) mg/dL Calcium 7.3 L (8.4-10.2) mg/dL Microbiology - Last 24 Hours (Table) 07/21/20 19:04 Blood Culture - Preliminary Blood No Growth after 24 hours 07/21/20 19:04 Blood Culture - Preliminary Blood No Growth after 24 hours
[2020-07-23 17:52] LABS: Glucose,Whole Blood 151 mg/dL (75-99)
--- NOTE | 2020-07-23 19:30 | P.PN ---
Progress Note - Text Progress Note Date: 07/23/20 - Chief Complaint Abdominal pain Consultation: This is a pleasant 74-year-old patient of Renata Diego. chronic stable medical conditions include diabetes, depression, hyperlipidemia, Sugey arthritis urinary incontinence. Patient started off 4 days ago with progressively worsening abdominal pain left lower quadrant. Accompanied by some fever and chills. Also nausea vomiting. Normally has a bowel movement every other day. Also some stool with some blood. Described as greasy. Computed tomography scan did confirm acute diverticulitis. Started antibiotics and be admitted for the same Admitted with acute diverticulitis with questionable microperforation. Started on IV Zosyn. Initially made nothing by mouth. Today-sitting up in a chair. Feeling better. Decreased pain. Positive flatus. Has been up in the hallway. No fever no chills. Review of systems: Was done for constitutional, cardiovascular, GI, pulmonary. relevant finding as above Active Medications Hydrocodone Bitart/Acetaminophen (Hydrocodone/Apap 5-325mg 1 Each Tab) 1 each PO Q6HR PRN PRN Reason: Pain Last Admin: 07/23/20 09:05 Dose: 1 each Documented by: Atorvastatin Calcium (Atorvastatin 20 Mg Tab) 20 mg PO HS PAUL Last Admin: 07/22/20 21:38 Dose: Not Given Documented by: Heparin Sodium (Porcine) (Heparin Sodium,Porcine 5,000 Unit/Ml 1 Ml Vial) 5,000 unit SQ Q12HR [facility] Last Admin: 07/23/20 08:46 Dose: 5,000 unit Documented by: Piperacillin Sod/Tazobactam (Sod 3.375 gm/ Sodium Chloride) 100 mls @ 25 mls/hr IVPB Q8H [facility] Last Admin: 07/23/20 17:20 Dose: 25 mls/hr Documented by: Sodium Chloride (Saline 0.9%) 1,000 mls @ 126 mls/hr IV .Q7H57M [facility] Last Admin: 07/23/20 14:12 Dose: 126 mls/hr Documented by: Insulin Aspart (Insulin Aspart (Novolog) 100 Unit/Ml Vial) 0 unit SQ ACHS [facility]; Protocol Last Admin: 07/23/20 18:00 Dose: 1 unit Documented by: Morphine Sulfate (Morphine Sulfate 4 Mg/Ml Syringe) 4 mg IV Q4HR PRN PRN Reason: Severe Pain Last Admin: 07/23/20 01:45 Dose: 4 mg Documented by: Multivitamins (Multivitamins, Thera 1 Each Tab) 1 each PO DAILY [facility] Last Admin: 07/23/20 08:46 Dose: 1 each Documented by: Naloxone HCl (Naloxone 0.4 Mg/Ml 1 Ml Vial) 0.2 mg IV Q2M PRN PRN Reason: Opioid Reversal Pantoprazole Sodium (Pantoprazole 40 Mg Tablet) 40 mg PO DAILY [facility] Sertraline HCl (Sertraline 100 Mg Tab) 100 mg PO DAILY [facility] Last Admin: 07/23/20 08:46 Dose: 100 mg Documented by: Past medical history to include: Diabetes, migraine, TIA, depression, hyperlipidemia, Sugey discitis, urinary incontinence, bases cell cancer that was removed, culture implant Social history: Lives with her . Smoked for 10 years stopped in 1973. No alcohol. Physical examination: VITAL SIGNS: 98.7, 76, 18, 1 8/45, 97% on room air GENERAL: BMI 36.4, sitting up in a chair, comfortable EYES: Pupils equal. Conjunctiva normal. HEENT: External appearance of nose and ears normal, oral cavity grossly normal. NECK: JVD not raised; masses not palpable. HEART: First and second heart sounds are normal; no edema. LUNGS: Respiratory rate normal; clear to auscultation. ABDOMEN: Soft, decreased left lower abdomen tenderness with no guarding rigidity, liver spleen not palpable, no masses palpable. PSYCH: Alert and oriented x3; mood and affect normal. MUSCULAR skeletal: Evidence of OA INVESTIGATIONS, reviewed in the clinical context: July 23: WBC 8.7 hemoglobin 10.2 potassium 3.8 creatinine 0.69 blood glucose 71 WBC 11.8 hemoglobin 10.5 platelets 279 potassium 3.7 creatinine 0.68 Admission labs: WBC 17.6 potassium 4.1 creatinine 0.83 lactic acid 2.4 Coronavirus [PCR]-not detected EKG tracing personally reviewed by me-heart rate 106 sinus rhythm Computed tomography scan of the abdomen illness with contrast: Left kidney 3.5 cm exophytic cyst. Abdominal wall hernia with omental fat. Multiple sigmoid diverticula. Stranding around the rectum. No free air. Small extraluminal air bubbles on the left rectal wall of the rectum. Moderate perirectal edema Assessment and plan: -Acute diverticulitis ; questionable microperforation. IV Zosyn. IV fluids. Initially nothing by mouth. Advance to full liquid diet for lunch by Dr. Heaton. -Obesity BMI 36.4. Patient to take weight loss measures and follow-up with his PCP. -Diabetes mellitus type II on oral hypoglycemic. Currently hold off Glucophage and Amaryl. Follow Accu-Cheks. Uncontrolled with hypoglycemia. Follow hypoglycemia protocol -Hyperlipidemia continue with Lipitor Care was discussed with the patient. Diet advanced. increase ambulation Thank you Dr. Heaton
[2020-07-23 20:57] LABS: Glucose,Whole Blood 164 mg/dL (75-99)
[2020-07-23] MEDS: ATORVASTATIN 20 MG TAB PO SCH (21:21)
[2020-07-23 21:45] LABS: Hemoglobin A1C 7.3 % (4.0-6.0)
[2020-07-24] MEDS: SODIUM CHLORIDE 0.9% 1,000 ML IV SCH ×2 (00:23→06:37)
[2020-07-24] MEDS: PIPERACILLIN-TAZOBACTAM 3.375 GM in SODIUM CHLORIDE 0.9% 100 ML IVPB SCH ×2 (01:19→10:18)
[2020-07-24 01:56] LABS: Glucose,Whole Blood 140 mg/dL (75-99)
[2020-07-24 05:06] LABS: Basophils % (A) 0 %; Eosinophils # (A) 0.2 k/uL (0-0.7); Eosinophils % (A) 4 %; HCT 30.9 % (34.0-46.0); Lymphocytes # (A) 1.6 k/uL (1.0-4.8); Lymphocytes % (A) 29 %; MCHC 32.4 g/dL (31.0-37.0); MCV 89.4 fL (80.0-100.0); Monocytes # (A) 0.3 k/uL (0-1.0); Monocytes % (A) 6 %; Neutrophils # (A) 3.2 k/uL (1.3-7.7); Neutrophils % (A) 59 %; Platelet Count 280 k/uL (150-450); RBC 3.45 m/uL (3.80-5.40); RDW 15.3 % (11.5-15.5); WBC 5.5 k/uL (3.8-10.6)
[2020-07-24 05:29] LABS: African American GFR (CKD) >90 (>60 ml/min/1.73 sqM); Anion Gap 4 mmol/L; Blood Urea Nitrogen 10 mg/dL (7-17); Calcium 7.9 mg/dL (8.4-10.2); Carbon Dioxide 21 mmol/L (22-30); Chloride 113 mmol/L (98-107); Glucose 118 mg/dL (74-99); Magnesium 1.7 mg/dL (1.6-2.3); Non-African American GFR(CKD) 89 (>60 ml/min/1.73 sqM); Sodium 138 mmol/L (137-145)
[2020-07-24 06:37] LABS: Glucose,Whole Blood 120 mg/dL (75-99)
[2020-07-24] MEDS: INSULIN ASPART (NovoLOG) 100 UNIT/ML VIAL SQ SCH ×2 (06:38→13:26)
[2020-07-24] MEDS ORDERED: PANTOPRAZOLE 40 MG TABLET PO SCH (09:00)
[2020-07-24] MEDS ORDERED: MAGNESIUM SULFATE-D5W PMX 1 GM in DEXTROSE/WATER 1 100ML.BAG IVPB ONE (09:00)
[2020-07-24] MEDS: HEPARIN SODIUM,PORCINE 5,000 UNIT/ML 1 ML VIAL SQ SCH (10:19)
[2020-07-24] MEDS: SERTRALINE 100 MG TAB PO SCH (10:20)
[2020-07-24] MEDS: MULTIVITAMINS, THERA 1 EACH TAB PO SCH (10:20)
[2020-07-24 10:30] VITALS: RESP 16
[2020-07-24 13:03] LABS: Glucose,Whole Blood 135 mg/dL (75-99)
[2020-07-24 15:18] VITALS: BP 143/76; PULSE 72; TEMP 98.7
--- NOTE | 2020-07-24 15:36 | P.DS ---
Providers Date of admission: 07/21/20 21:50 Expected date of discharge: 07/24/20 Attending physician: Reginaldo Heaton Consults: 07/21/20 21:50 Consult Physician Routine Consulting Provider: Ebenezer Spangler Consult Reason/Comments: medical management of surgical patient Do you want consulting provider notified?: Yes Primary care physician: Wily Kamara Hospital Course: Discharge diagnosis 1. Acute diverticulitis involving distal sigmoid colon and proximal rectum with microperforation with sepsis present on admission 2. Hypomagnesemia receiving supplement Hospital course This is a 74-year-old female with a past medical history of 1 prior episode of diverticulitis, diabetes mellitus, hyperlipidemia and depression. She has a surgical history of hysterectomy. Patient presents to the emergency room with left lower quadrant abdominal pain that started yesterday. Apparently patient has been having diarrhea for 3 weeks. She also had fever at home with vomiting. On admission patient had a temp of 100.8 and had been tachycardic with elevated lactic acid level. Patient had computed tomography scan of the abdomen and pelvis showed moderate sigmoid diverticulosis. There is moderate fat stranding in the pelvis involving distal sigmoid colon and proximal rectum consistent with diverticulitis. There is small extraluminal air bubbles on the left lateral wall of the rectum. This area measures 2.5 cm. There is moderate perirectal edema with presacral fluid. Patient has been on IV antibiotics for her diverticulitis. She was treated conservatively. She has tolerated advancement of her diet. She is having bowel movements. She is up and ambulating. White count has normalized. Her abdominal pain has resolved. And she is tolerating diet. Patient will be discharged home with antibiotics. Patient is stable for discharge. Please refer to chart for any further details. Physician Multimedia Developer note has been reviewed by physician. Signing provider agrees with the documented findings, assessment, and plan of care. Patient Condition at Discharge: Stable Plan - Discharge Summary New Discharge Prescriptions: New metroNIDAZOLE [Flagyl] 500 mg PO Q8HR #21 tab Levofloxacin [Levaquin] 500 mg PO DAILY 7 Days #7 tab Continue metFORMIN HCL [Glucophage] 500 mg PO BID Glimepiride [Amaryl] 4 mg PO W/SUPPER Sertraline HCl [Zoloft] 100 mg PO DAILY Multivitamins, Thera [Multivitamin (formulary)] 1 tab PO DAILY Atorvastatin [Lipitor] 20 mg PO HS Calcium Carbonate 500 mg PO DAILY Discontinued Amoxicillin/Potassium Clav [Augmentin 875-125 Tablet] 1 tab PO BID Discharge Medication List Glimepiride [Amaryl] 4 mg PO W/SUPPER 05/06/18 [History] metFORMIN HCL [Glucophage] 500 mg PO BID 05/06/18 [History] Atorvastatin [Lipitor] 20 mg PO HS 07/21/20 [History] Calcium Carbonate 500 mg PO DAILY 07/21/20 [History] Multivitamins, Thera [Multivitamin (formulary)] 1 tab PO DAILY 07/21/20 [History] Sertraline HCl [Zoloft] 100 mg PO DAILY 07/21/20 [History] Levofloxacin [Levaquin] 500 mg PO DAILY 7 Days #7 tab 07/24/20 [Rx] metroNIDAZOLE [Flagyl] 500 mg PO Q8HR #21 tab 07/24/20 [Rx] Follow up Appointment(s)/Referral(s): Wily Kamara MD [Primary Care Provider] - 1-2 days Reginaldo Heaton MD [STAFF PHYSICIAN] - 08/06/20 1:00 pm Activity/Diet/Wound Care/Special Instructions: Diet advance as tolerated Discharge Disposition: HOME SELF-CARE
--- NOTE | 2020-07-24 22:36 | P.PN ---
Progress Note - Text Progress Note Date: 07/24/20 - Chief Complaint Abdominal pain Consultation: This is a pleasant 74-year-old patient of Renata Diego. chronic stable medical conditions include diabetes, depression, hyperlipidemia, Sugey arthritis urinary incontinence. Patient started off 4 days ago with progressively worsening abdominal pain left lower quadrant. Accompanied by some fever and chills. Also nausea vomiting. Normally has a bowel movement every other day. Also some stool with some blood. Described as greasy. Computed tomography scan did confirm acute diverticulitis. Started antibiotics and be admitted for the same Admitted with acute diverticulitis with questionable microperforation. Started on IV Zosyn. Initially made nothing by mouth. Today-saw the patient this morning. Feeling much better. No abdominal pain. Passed flatus. Oral intake improved. No nausea vomiting. Up in the hallway. Review of systems: Was done for constitutional, cardiovascular, GI, pulmonary. 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 Smoked for 10 years stopped in 1973. No alcohol. Physical examination: VITAL SIGNS: 98.1, 54, 16, 110/72, 97% room air GENERAL: Sitting upon a chair, looking better EYES: Pupils equal. Conjunctiva normal. HEENT: External appearance of nose and ears normal, oral cavity grossly normal. NECK: JVD not raised; masses not palpable. HEART: First and second heart sounds are normal; no edema. LUNGS: Respiratory rate normal; clear to auscultation. ABDOMEN: Soft, no tenderness with no guarding rigidity, liver spleen not palpable, no masses palpable. PSYCH: Alert and oriented x3; mood and affect normal. MUSCULAR skeletal: Evidence of OA INVESTIGATIONS, reviewed in the clinical context: July 23: WBC 8.7 hemoglobin 10.2 potassium 3.8 creatinine 0.69 blood glucose 71 WBC 11.8 hemoglobin 10.5 platelets 279 potassium 3.7 creatinine 0.68 Admission labs: WBC 17.6 potassium 4.1 creatinine 0.83 lactic acid 2.4 Coronavirus [PCR]-not detected EKG tracing personally reviewed by me-heart rate 106 sinus rhythm Computed tomography scan of the abdomen illness with contrast: Left kidney 3.5 cm exophytic cyst. Abdominal wall hernia with omental fat. Multiple sigmoid diverticula. Stranding around the rectum. No free air. Small extraluminal air bubbles on the left rectal wall of the rectum. Moderate perirectal edema Assessment and plan: -Acute diverticulitis ; questionable microperforation. IV Zosyn. IV fluids. Initially nothing by mouth. Much improved -Obesity BMI 36.4. Patient to take weight loss measures and follow-up with his PCP. -Diabetes mellitus type II on oral hypoglycemic. Follow Accu-Cheks. Uncontrolled with hypoglycemia. -Hyperlipidemia continue with Lipitor Care was discussed with the patient. Doing better. Thank you Dr. Heaton
== END 2020-07-24 16:30 | disposition home or self-care (01) | DRG 872 ==
LOC: EC 18:28 → 4SSUR 21:50 → 6PED 07-22 00:09
PROVIDERS: ADMIT Surgery; ATTEND Surgery
DX: A41.9 Sepsis, unspecified organism (principal); E87.2 Acidosis; K57.20 Diverticulitis of large intestine with perforation and abscess without bleeding; K61.1 Rectal abscess; E11.649 Type 2 diabetes mellitus with hypoglycemia without coma; G43.909 Migraine, unspecified, not intractable, without status migrainosus; Z96.21 Cochlear implant status; Z20.822 Contact with and (suspected) exposure to COVID-19; E78.5 Hyperlipidemia, unspecified; F32.9 Major depressive disorder, single episode, unspecified; E83.42 Hypomagnesemia; M19.90 Unspecified osteoarthritis, unspecified site; R32 Unspecified urinary incontinence; E66.9 Obesity, unspecified; Z68.36 Body mass index [BMI] 36.0-36.9, adult; Z79.84 Long term (current) use of oral hypoglycemic drugs; Z79.899 Other long term (current) drug therapy; Z90.710 Acquired absence of both cervix and uterus; Z85.828 Personal history of other malignant neoplasm of skin; Z98.890 Other specified postprocedural states; Z86.73 Personal history of transient ischemic attack (TIA), and cerebral infarction without residual deficits; Z87.891 Personal history of nicotine dependence; Z88.2 Allergy status to sulfonamides; Z88.8 Allergy status to other drugs, medicaments and biological substances; Z82.49 Family history of ischemic heart disease and other diseases of the circulatory system; Z80.3 Family history of malignant neoplasm of breast
CPT/HCPCS: 36415; 74177; 80048; 80053; 81001; 83036; 83605; 83735; 85025; 85610; 85730; 87040; 87635; 93005; 96360; 96361; 99285

== ENCOUNTER 2020-10-11 07:19 | Day surgery (SDC) | payer MEDICARE, OTHER ==
[2020-10-10 11:22] VITALS: BMI 36.5
[~2020-10-11 07:19] MED LIST: LACTATED RINGERS 1,000 ML IV SCH
[2020-10-11 07:52] VITALS: RESP 16; TEMP 95.9
[2020-10-11 07:53] LABS: Glucose,Whole Blood 73 mg/dL (75-99)
[2020-10-11] MEDS ORDERED: LIDOCAINE 1% (10MG/ML) FOR IV START INTRADERMA ONE (07:53)
--- NOTE | 2020-10-11 08:23 | P.GSHP ---
History of Present Illness H&P Date: 10/11/20 Chief Complaint: Diverticulitis This a 74-year-old female with a history of diverticula is. Patient rents today for colonoscopy. Past Medical History Past Medical History: Cancer, CVA/TIA, Diabetes Mellitus, Hearing Disorder / Deafness, Osteoarthritis (OA) Additional Past Medical History / Comment(s): Basal Cell Skin Cancer., migraines, December 1997 TIA, sciatica right leg, Hospitalized in July 2020 for diverticulitis., deaf left ear History of Any Multi-Drug Resistant Organisms: None Reported Past Surgical History: Hysterectomy Additional Past Surgical History / Comment(s): basal cell cancer removed ., lasik eye sx, cochlear implant lt, deviated septum surgery Past Anesthesia/Blood Transfusion Reactions: No Reported Reaction Additional Past Anesthesia/Blood Transfusion Reaction / Comment(s): mild clausterphobia Past Psychological History: No Psychological Hx Reported Additional Psychological History / Comment(s): states she took sertraline due to hyperactive son and just stayed on the med. Smoking Status: Former smoker Past Alcohol Use History: Rare Additional Past Alcohol Use History / Comment(s): started smoking age 18(1963) , quit age 28(1973) smoked 1/2 ppd Past Drug Use History: None Reported - Past Family History Mother Family Medical History: Cancer, Coronary Artery Disease (CAD) Additional Family Medical History / Comment(s): breast cancer. triple vessel cabg- age 95 Father Family Medical History: Cancer Additional Family Medical History / Comment(s): age 62 Medications and Allergies Home Medications Medication Instructions Recorded Confirmed Type Glimepiride [Amaryl] 4 mg PO W/SUPPER 05/06/18 10/11/20 History metFORMIN HCL [Glucophage] 500 mg PO BID 05/06/18 10/11/20 History Atorvastatin [Lipitor] 20 mg PO HS 07/21/20 10/11/20 History Calcium Carbonate 500 mg PO DAILY 07/21/20 10/11/20 History Sertraline HCl [Zoloft] 100 mg PO DAILY 07/21/20 10/11/20 History Allergies Allergy/AdvReac Type Severity Reaction Status Date / Time Sulfa (Sulfonamide Allergy Intermediate Nausea Verified 07/22/20 14:16 Antibiotics) prednisone Allergy anxious, Verified 10/10/20 10:57 jittery mold AdvReac Unknown throat Verified 10/10/20 11:23 irritation smoke AdvReac Unknown throat Uncoded 10/10/20 11:23 irritation Surgical - Exam Vital Signs Temp Pulse Resp BP Pulse Ox 95.9 F L 82 16 166/73 97 10/11/20 07:42 10/11/20 07:42 10/11/20 07:42 10/11/20 07:42 10/11/20 07:42 - General well developed, well nourished, no distress - Eyes PERRL - ENT normal pinna - Neck no masses - Respiratory normal expansion - Cardiovascular Rhythm: regular - Abdomen Abdomen: soft, non tender Results - Labs Abnormal Lab Results - Last 24 Hours (Table) 10/11/20 Range/Units 07:50 POC Glucose (mg/dL) 73 L (75-99) mg/dL Assessment and Plan Assessment: History of diverticulitis. We'll perform colonoscopy.
[2020-10-11] MEDS ORDERED: ESMOLOL 100 MG/10 ML VIAL ONE (08:26)
[2020-10-11] MEDS ORDERED: LIDOCAINE 1% INJ 10MG/ML (20 ML MDV) ONE (08:26)
[2020-10-11] MEDS ORDERED: PROPOFOL 10 MG/ML 20 ML VIAL IV ONE (08:26)
--- NOTE | 2020-10-11 08:58 | P.OP ---
Date of Procedure: 10/11/20 Preoperative Diagnosis: Diverticulitis Postoperative Diagnosis: Diverticulosis Right colon polyp Procedure(s) Performed: Colonoscopy Anesthesia: MAC Surgeon: Reginaldo Heaton Pathology: other Condition: stable Disposition: PACU Description of Procedure: The patient's placed on the endoscopy table in the lateral position. She received IV sedation. Digital rectal exam was performed which revealed mild external hemorrhoids. Flexible colonoscope was then placed patient anus passed throughout the entire colon. The ileocecal valve lesions. In the right colon there was a plica polyp was removed with snare. The remainder the ascending colon, transverse colon appeared normal in the descending; there is moderate diverticular changes. Scope was then brought back the rectum and this appeared normal. Scope withdrawn from patient
[2020-10-11 09:16] LABS: Glucose,Whole Blood 84 mg/dL (75-99)
[2020-10-11 09:23] VITALS: PULSE 84
[2020-10-11 09:28] VITALS: BP 142/62
[2020-10-11 09:37] LABS: Glucose,Whole Blood 103 mg/dL (75-99)
== END 2020-10-11 10:05 | disposition home or self-care (01) ==
LOC: ORWHC2ENDO 07:19
PROVIDERS: ATTEND Surgery
DX: K57.90 Diverticulosis of intestine, part unspecified, without perforation or abscess without bleeding (principal); D12.2 Benign neoplasm of ascending colon; Z86.010 Personal history of colon polyps; E11.9 Type 2 diabetes mellitus without complications; E78.5 Hyperlipidemia, unspecified; Z88.2 Allergy status to sulfonamides; Z88.8 Allergy status to other drugs, medicaments and biological substances; Z79.899 Other long term (current) drug therapy; Z86.73 Personal history of transient ischemic attack (TIA), and cerebral infarction without residual deficits; M19.90 Unspecified osteoarthritis, unspecified site; Z85.828 Personal history of other malignant neoplasm of skin; Z87.891 Personal history of nicotine dependence
CPT/HCPCS: 88305; 45385; J2001; J2704

== ENCOUNTER → 2020-11-15 | Outpatient (CLI) | payer MEDICARE, OTHER | END | disposition home or self-care (01) | DX: R09.81 Nasal congestion (principal) ==

== ENCOUNTER 2021-06-24 17:44 | Inpatient (IN) | payer MEDICARE, OTHER ==
[2021-06-24] MEDS ORDERED: ACETAMINOPHEN TAB 500 MG TAB PO STA (18:03)
[2021-06-24] MEDS ORDERED: MORPHINE SULFATE 4 MG/ML SYRINGE IVP STA (18:21)
--- NOTE | 2021-06-24 19:42 | XR ---
EXAMINATION TYPE: XR Hip LT and AP Pelvis DATE OF EXAM: 06/24/2021 COMPARISON: 07/21/2020 CT scan HISTORY: Pain TECHNIQUE: 3 views FINDINGS: The pelvic ring is intact. Sacroiliac joints are intact. There is impacted subcapital fract ure of the left femur. Fractures probably acute. IMPRESSION: Acute impacted subcapital fracture left femur which is a change compared to old exam.
--- NOTE | 2021-06-24 19:43 | XR ---
EXAMINATION TYPE: XR lumbar spine 2 or 3V DATE OF EXAM: 06/24/2021 COMPARISON: NONE HISTORY: Fall. Back pain TECHNIQUE: 3 views FINDINGS: There is mild dextroscoliosis. There is some mild degenerative disc space narrowing and the re lumbar spine at L2-3. There is no compression fracture. Sacroiliac joints are intact. Sacroiliac j oints are intact. IMPRESSION: Mild dextroscoliosis. Mild spondylotic changes. No fracture seen.
[2021-06-24] MEDS ORDERED: NALOXONE 0.4 MG/ML 1 ML VIAL IV PRN (20:11)
[2021-06-24] MEDS ORDERED: HYDROmorphone 0.5 MG/0.5 ML SYRINGE IVP STA (20:11)
[2021-06-24] MEDS ORDERED: ONDANSETRON 4 MG/2 ML VIAL IVP PRN (20:11)
[2021-06-24] MEDS ORDERED: SODIUM CHLORIDE 0.9% 1,000 ML IV STA (20:11)
[2021-06-24] MEDS ORDERED: HYDROmorphone 1 MG/ML 1 ML SYRINGE IVP PRN (20:11)
[2021-06-24] MEDS ORDERED: ACETAMINOPHEN TAB 325 MG TAB PO PRN (20:11)
--- NOTE | 2021-06-24 20:29 | ED ---
General Adult HPI - General Chief complaint: Extremity Injury, Lower Stated complaint: fall, left hip pain Time Seen by Provider: 06/24/21 18:03 Source: EMS, RN notes reviewed, old records reviewed Mode of arrival: EMS Limitations: physical limitation - History of Present Illness Initial comments: Patient is a 75-year-old female with past medical history remarkable for diabetes, prior anticoagulation use but no longer on it for multiple months, who presents emergency Department after a fall at home. Patient states she had a mechanical fall at home. Denies any syncopal episode or hitting her head. Denies losing consciousness. She is walking the bathroom, lost her balance, and fell onto her left hip. Denies any other injuries. Is currently complaining of left hip pain. She states she does have some mild radiation towards her left buttock as well as lower spine. However she denies any midline spinal tenderness to palpation. Denies any nausea, vomiting, chest pain, shortness breath, abdominal pain, nausea, vomiting. Denies any other acute complaints. Denies any numbness, weakness. Endorses pain in the left hip with any movement. Presents over concern for possible bony traumatic injury. I evaluated patient when she was placed in a room. Fall occurred approximately 2 hours ago.Patient was unable to ambulate following the fall. - Related Data Home Medications Medication Instructions Recorded Confirmed Glimepiride [Amaryl] 4 mg PO W/SUPPER 05/06/18 06/24/21 Sertraline HCl [Zoloft] 100 mg PO DAILY 07/21/20 06/24/21 Calcium Carbonate [Tums] 500 mg PO BID 06/24/21 06/24/21 metFORMIN HCL [Glucophage] 1,000 mg PO BID 06/24/21 06/24/21 traMADol HCL 50 mg PO TID PRN 06/24/21 06/24/21 Allergies Allergy/AdvReac Type Severity Reaction Status Date / Time mold Allergy Unknown throat Verified 06/24/21 19:14 irritation Sulfa (Sulfonamide AdvReac Intermediate Nausea Verified 06/24/21 19:14 Antibiotics) prednisone AdvReac anxious, Verified 06/24/21 19:14 jittery smoke Allergy Unknown throat Uncoded 06/24/21 19:14 irritation Review of Systems ROS Statement: Those systems with pertinent positive or pertinent negative responses have been documented in the HPI. Review of Systems: CONST: Denies fever EYES: Denies blurry vision ENT: Denies nasal congestion C/V: Denies Chest pain RESP: Denies shortness of breath GI: Denies abdominal pain : Denies dysuria SKIN: Denies rash. MSK: Endorses left hip pain NEURO: Denies headache ROS Other: All systems not noted in ROS Statement are negative. Past Medical History Past Medical History: Cancer, CVA/TIA, Diabetes Mellitus, Hearing Disorder / Deafness, Osteoarthritis (OA) Additional Past Medical History / Comment(s): Basal Cell Skin Cancer., migraines, December 1997 TIA, sciatica right leg, Hospitalized in July 2020 for diverticulitis., deaf left ear History of Any Multi-Drug Resistant Organisms: None Reported Past Surgical History: Hysterectomy Additional Past Surgical History / Comment(s): basal cell cancer removed ., lasik eye sx, cochlear implant lt, deviated septum surgery Past Anesthesia/Blood Transfusion Reactions: No Reported Reaction Additional Past Anesthesia/Blood Transfusion Reaction / Comment(s): mild clausterphobia Past Psychological History: No Psychological Hx Reported Smoking Status: Former smoker Past Alcohol Use History: Rare Past Drug Use History: None Reported - Past Family History Mother Family Medical History: Cancer, Coronary Artery Disease (CAD) Additional Family Medical History / Comment(s): breast cancer. triple vessel cabg- age 95 Father Family Medical History: Cancer Additional Family Medical History / Comment(s): age 62 General Exam - General Exam Comments Initial Comments: General: In moderate distress secondary to left hip pain. HEAD: Normal with no signs of head trauma. EYES: PERRLA, EOMI, conjunctiva normal, no discharge. Pupils are 2 mm and equal bilaterally. ENT: Hearing grossly intact, normal oropharynx. RESPIRATORY: Clear breath sounds bilaterally. No wheezes, rales, or rhonchi. C/V: Regular rate and rhythm. S1 and S2 auscultated, no edema, peripheral pulses 2+ and intact throughout ABD: Abd is soft, nontender, nondistended EXT: Reduced range of motion of the left hip secondary to pain. She is tetanus palpation over the lateral aspect of the left femoral head. Pelvis is stable. No midline spinal tenderness to palpation. Patient is neurovascularly intact in the left lower extremity distally. SKIN: No rashes or lesions observed on exposed skin. NEURO: Alert and oriented 4. No focal deficits. Limitations: physical limitation Course Vital Signs 06/24/21 06/24/21 17:52 20:00 Temperature 98.2 F 98.2 F Pulse Rate 87 100 Respiratory 16 18 Rate Blood Pressure 177/84 169/76 O2 Sat by Pulse 96 94 L Oximetry Medical Decision Making - Medical Decision Making Based on the patient's presentation and physical exam, I'm concerned for acute bony trauma or injury to the patient's left hip. We will obtain plain film x- rays, lumbar spine x-ray. She will be admission and IV analgesia medications. She was in agreement this plan. Patient's x-rays revealed an impacted subcapital left femoral fracture. Lumbar spine x-ray was also obtained was negative for any acute injury. I discussed the findings with the patient explaining that due to her being unable to ambulate, she likely requires admission the hospital. She was in agreement this plan. She was given additional pain medications as well as basic labs were drawn.Basic labs were remarkable for a leukocytosis of 15 which is likely reactive. The remainder of her labs are unremarkable. I spoke with the orthopedic attending television announcer, Dr. Sanches. He was in agreement with the plan for admission under him. I will consult medicine, [facility] for medical management. I spoke with the Debra Simeon who accepted the consult. Consult was placed to Dr. Givens. Patient was admitted in stable condition. She'll be nothing by mouth after midnight. - Lab Data Result diagrams: 06/24/21 20:35 06/24/21 20:35 Disposition Clinical Impression: Femur fracture, left, Fall Disposition: ADMITTED IP TO THIS HOSP Condition: Stable
[2021-06-24] MEDS: HYDROmorphone 1 MG/ML 1 ML SYRINGE IVP PRN (21:05)
[2021-06-24 21:17] LABS: Basophils # (A) 0.1 k/uL (0-0.2); Basophils % (A) 0 %; Eosinophils # (A) 0.1 k/uL (0-0.7); Eosinophils % (A) 1 %; HCT 37.5 % (34.0-46.0); HGB 12.2 gm/dL (11.4-16.0); Lymphocytes # (A) 2.4 k/uL (1.0-4.8); Lymphocytes % (A) 16 %; MCH 30.6 pg (25.0-35.0); MCHC 32.6 g/dL (31.0-37.0); MCV 93.9 fL (80.0-100.0); Mean Platelet Volume 7.5; Monocytes # (A) 0.6 k/uL (0-1.0); Monocytes % (A) 4 %; Neutrophils # (A) 11.9 k/uL (1.3-7.7); Neutrophils % (A) 78 %; Platelet Count 266 k/uL (150-450); RBC 3.99 m/uL (3.80-5.40); RDW 13.4 % (11.5-15.5); WBC 15.1 k/uL (3.8-10.6)
[2021-06-24 21:29] LABS: African American GFR (CKD) >90 (>60 ml/min/1.73 sqM); Anion Gap 8 mmol/L; Blood Urea Nitrogen 24 mg/dL (7-17); Calcium 8.8 mg/dL (8.4-10.2); Carbon Dioxide 21 mmol/L (22-30); Chloride 108 mmol/L (98-107); Glucose 223 mg/dL (74-99); Non-African American GFR(CKD) 86 (>60 ml/min/1.73 sqM); Partial Thromboplastin Time 22.9 sec (22.0-30.0); Potassium 3.8 mmol/L (3.5-5.1); Prothrombin Time 11.1 sec (9.0-12.0); Sodium 137 mmol/L (137-145)
[2021-06-24] MEDS: metFORMIN 500 MG TAB PO SCH (21:30)
[2021-06-24] MEDS ORDERED: HYDROmorphone 1 MG/ML 1 ML SYRINGE ONE (23:47)
[2021-06-25] MEDS ORDERED: HYDROmorphone 1 MG/ML 1 ML SYRINGE ONE (02:47)
[2021-06-25 03:49] LABS: Appearance,Urine Slightly Cloudy (Clear); Color,Urine Yellow; PH, Urine 5.5 (5.0-8.0); Protein,Urine 1+ (Negative); Specific Gravity,Urine 1.034 (1.001-1.035)
[2021-06-25 03:50] LABS: Bacteria,Urine Occasional /hpf; Bilirubin,Urine Negative (Negative); Blood,Urine Small (Negative); Glucose,Urine (UA) 4+ (Negative); Ketones,Urine Trace (Negative); Leukocyte Esterase,Urine Large (Negative); Nitrite,Urine Negative (Negative); RBC,Urine 4 /hpf (0-5); Urobilinogen,Urine 0.2 mg/dL (<2.0); WBC,Urine 25 /hpf (0-5)
[2021-06-25] MEDS: SODIUM CHLORIDE 0.9% 1,000 ML IV SCH ×3 (05:42→20:01)
[2021-06-25] MEDS: HEPARIN SODIUM,PORCINE/PF 5,000 UNIT/0.5 ML SYRINGE SQ SCH ×3 (05:42→17:14)
[2021-06-25] MEDS: HYDROmorphone 1 MG/ML 1 ML SYRINGE IVP PRN ×2 (06:23→09:14)
[2021-06-25] MEDS: metFORMIN 500 MG TAB PO SCH ×3 (09:11→20:06)
[2021-06-25] MEDS: SERTRALINE 100 MG TAB PO SCH ×2 (09:11→09:25)
[2021-06-25] MEDS ORDERED: traMADol 50 MG TAB PO PRN (09:32)
[2021-06-25] MEDS ORDERED: MAGNESIUM HYDROXIDE 2,400 MG/10 ML CUP PO PRN (09:32)
[2021-06-25] MEDS ORDERED: HYDROcodone/APAP 5-325MG 1 EACH TAB PO PRN (09:32)
[2021-06-25] MEDS ORDERED: Acetaminophen-Codeine 300-30mg TAB PO PRN (09:32)
[2021-06-25] MEDS ORDERED: HYDROmorphone 1 MG/ML 1 ML SYRINGE IVP PRN ×3 (09:32)
--- NOTE | 2021-06-25 11:01 | XR ---
EXAMINATION TYPE: XR chest 1V portable DATE OF EXAM: 06/25/2021 COMPARISON: NONE HISTORY: Shortness of breath TECHNIQUE: Single frontal view of the chest is obtained. FINDINGS: There is no focal air space opacity, pleural effusion, or pneumothorax seen. The cardiac silhouette size is within normal limits. The osseous structures are intact. Atherosclerotic change of the aorta. Chronic deformity of the right humerus. Diffuse osteopenia and arthropathy of the shoul ders. IMPRESSION: No acute process.
[2021-06-25] MEDS: diazePAM 5 MG TAB PO PRN ×2 (11:43→17:29)
[2021-06-25] MEDS: MULTIVITAMINS, THERA 1 EACH TAB PO SCH (11:43)
[2021-06-25 11:49] LABS: Glucose,Whole Blood 190 mg/dL (75-99)
[2021-06-25] MEDS: INSULIN ASPART (NovoLOG) 100 UNIT/ML VIAL SQ SCH ×3 (12:44→20:15)
--- NOTE | 2021-06-25 13:51 | CONS ---
CONSULTATION REASON FOR CONSULTATION: Advice regarding diabetes mellitus and other multiple medical issues, requested by Orthopedic Surgery. HISTORY OF PRESENT ILLNESS: This 75-year-old woman with a past medical history of diabetes mellitus, pneumonia, being followed by Dr. Kamara in the outpatient setting, apparently missed a step and had a fall. The patient had a subcapital impacted fracture of the left femur. The patient is complaining of some pain. The patient also had features of UTI. No chest pain. No palpitations. No fever. No shortness of breath. No cough. PAST MEDICAL HISTORY: History of diabetes mellitus, history of pneumonia. HOME MEDICATIONS: Reviewed. They include Ultram, metformin. Doses and other medications are reviewed. ALLERGIES: MOLD, SULFA. FAMILY HISTORY: History of CAD. SOCIAL HISTORY: Previous history of smoking. REVIEW OF SYSTEMS: Fourteen-point review of systems negative except as mentioned earlier. PHYSICAL EXAMINATION: Pulse 96, blood pressure 160/63, respirations 16. CARDIOVASCULAR: S1, S2 muffled. RESPIRATION: Breath sounds diminished at the bases. No rhonchi. No crackles. ABDOMEN: Soft, nontender. NERVOUS SYSTEM: No focal deficit. SKIN: No ulcer, rash, bleeding. JOINTS: No active deforming arthropathy. Examination of the left leg is painful. Movements are painful. LABS: WBC 15.1. UA noted. ASSESSMENT: 1. Acute left subcapital femoral fracture, status post fall. 2. Urinary tract infection. 3. Diabetes mellitus, type 2. 4. History of pneumonia. RECOMMENDATIONS AND DISCUSSION: This 75-year-old woman who presented after fall and femur fracture is medically stable. Chest x-ray ordered and reviewed. It showed no acute process. The patient will be cleared for surgery. The patient also has a UTI. I recommend a course of IV antibiotics. The cultures are ordered. See orders for further details. MMODL / IJN: [id number] /
[2021-06-25] MEDS: HYDROcodone/APAP 10-325MG 1 EACH TAB PO PRN ×2 (14:23→19:58)
[2021-06-25 16:50] LABS: Glucose,Whole Blood 128 mg/dL (75-99)
[2021-06-25] MEDS: GLIMEPIRIDE 4 MG TAB PO SCH (17:15)
--- NOTE | 2021-06-25 19:16 | P.HPOR ---
History of Present Illness H&P Date: 06/25/21 Chief Complaint: Left hip fracture Patient is a pleasant 75 yo female seen at bedside today. She was admitted through the ED yesterday after falling at home and injuring her left hip. Xrays showed a subcapital left femoral neck fracture. She has pain as expected. She denies numbness or tingling. She has no calf pain. She has no other complaints. Review of Systems All systems: negative Constitutional: Denies chills, Denies fever Eyes: denies blurred vision, denies pain Ears, nose, mouth and throat: Denies headache, Denies sore throat Cardiovascular: Denies chest pain, Denies shortness of breath Respiratory: Denies cough Gastrointestinal: Denies abdominal pain, Denies diarrhea, Denies nausea, Denies vomiting Genitourinary: Denies dysuria, Denies hematuria Musculoskeletal: Denies myalgias Integumentary: Denies pruritus, Denies rash Neurological: Denies numbness, Denies weakness Psychiatric: Denies anxiety, Denies depression Endocrine: Denies fatigue, Denies weight change Past Medical History Past Medical History: Cancer, CVA/TIA, Diabetes Mellitus, Hearing Disorder / Deafness, Osteoarthritis (OA), Pneumonia Additional Past Medical History / Comment(s): Basal Cell Skin Cancer removed from left posterior shoulder , migraines, December 1997 TIA, sciatica right leg, Hospitalized in July 2020 for diverticulitis., deaf left ear with cochlear implant History of Any Multi-Drug Resistant Organisms: None Reported Past Surgical History: Hysterectomy, Tubal Ligation Additional Past Surgical History / Comment(s): basal cell cancer removed left posterior shoulder jun 2021., lasik eye sx, cochlear implant lt, deviated septum surgery Past Anesthesia/Blood Transfusion Reactions: No Reported Reaction Additional Past Anesthesia/Blood Transfusion Reaction / Comment(s): mild clausterphobia Past Psychological History: No Psychological Hx Reported Additional Psychological History / Comment(s): states she took sertraline due to hyperactive son and just stayed on the med. Smoking Status: Former smoker Past Alcohol Use History: Rare Additional Past Alcohol Use History / Comment(s): started smoking age 18(1963) , quit age 28(1973) smoked 1/2 ppd Past Drug Use History: None Reported - Past Family History Mother Family Medical History: Cancer, Coronary Artery Disease (CAD) Additional Family Medical History / Comment(s): breast cancer. triple vessel cabg- age 95 Father Family Medical History: Cancer Additional Family Medical History / Comment(s): age 62 Medications and Allergies Home Medications Medication Instructions Recorded Confirmed Type Glimepiride [Amaryl] 4 mg PO W/SUPPER 05/06/18 06/24/21 History Sertraline HCl [Zoloft] 100 mg PO DAILY 07/21/20 06/24/21 History Calcium Carbonate [Tums] 500 mg PO BID 06/24/21 06/24/21 History metFORMIN HCL [Glucophage] 1,000 mg PO BID 06/24/21 06/24/21 History traMADol HCL 50 mg PO TID PRN 06/24/21 06/24/21 History Allergies Allergy/AdvReac Type Severity Reaction Status Date / Time mold Allergy Unknown throat Verified 06/24/21 19:14 irritation Sulfa (Sulfonamide AdvReac Intermediate Nausea Verified 06/24/21 19:14 Antibiotics) prednisone AdvReac anxious, Verified 06/24/21 19:14 jittery smoke Allergy Unknown throat Uncoded 06/24/21 19:14 irritation Physical Examination Inspection of left lower extremity shows no deformity. There is no erythema or wounds. ROM of hip is not tested due to fracture. Motor and sensation grossly intact throughout the left lower extremity. Calf is soft and nontender. 2+ DP pulse and less than 2 sec cap refill. Results Xrays of left hip show minimally impacted minimally displaced subcapital femoral neck fracture. - Labs Labs: Abnormal Lab Results - Last 24 Hours (Table) 06/24/21 06/24/21 06/24/21 Range/Units 20:35 20:35 23:50 WBC 15.1 H (3.8-10.6) k/uL Neutrophils # 11.9 H (1.3-7.7) k/uL Chloride 108 H (98-107) mmol/L Carbon Dioxide 21 L (22-30) mmol/L BUN 24 H (7-17) mg/dL Glucose 223 H (74-99) mg/dL POC Glucose (mg/dL) (75-99) mg/dL Urine Appearance Slightly Cloudy H (Clear) Urine Protein 1+ H (Negative) Urine Glucose (UA) 4+ H (Negative) Urine Ketones Trace H (Negative) Ur Leukocyte Esterase Large H (Negative) Urine WBC 25 H (0-5) /hpf Urine Bacteria Occasional H (None) /hpf 06/25/21 06/25/21 Range/Units 11:46 16:48 WBC (3.8-10.6) k/uL Neutrophils # (1.3-7.7) k/uL Chloride (98-107) mmol/L Carbon Dioxide (22-30) mmol/L BUN (7-17) mg/dL Glucose (74-99) mg/dL POC Glucose (mg/dL) 190 H 128 H (75-99) mg/dL Urine Appearance (Clear) Urine Protein (Negative) Urine Glucose (UA) (Negative) Urine Ketones (Negative) Ur Leukocyte Esterase (Negative) Urine WBC (0-5) /hpf Urine Bacteria (None) /hpf Microbiology - Last 24 Hours (Table) 06/24/21 23:50 Urine Culture - Preliminary Urine,Catheterized H & H 06/24/21 Range/Units 20:35 Hgb 12.2 (11.4-16.0) gm/dL Hct 37.5 (34.0-46.0) % Coagulation 06/24/21 Range/Units 20:35 INR 1.0 (<1.2) Result Diagrams: 06/24/21 20:35 06/24/21 20:35 - Diagnostic results Hip x-ray: report reviewed, image reviewed Assessment and Plan (1) Femur fracture, left Narrative/Plan: Patient has been reviewed with Dr. Sanches. He has recommended proceeding with surgical intervention including closed reduction internal fixation with percutaneous pinning of left hip fracture. The risks and benefits have been explained and she desires to proceed. She will be NPO after MN. Procedure and consent ordered. She will continue routine orthopedic protocol post op and may need placement Current Visit: Yes Status: Acute Code(s): S72.92XA - UNSP FRACTURE OF LEFT FEMUR, INIT ENCNTR FOR CLOSED FRACTURE SNOMED Code(s): 02596440 Time with Patient: Less than 30
[2021-06-25] MEDS: SENNOSIDES-DOCUSATE SODIUM 1 EACH TAB PO SCH (20:00)
[2021-06-25 20:20] LABS: Glucose,Whole Blood 170 mg/dL (75-99)
[2021-06-26] MEDS: diazePAM 5 MG TAB PO PRN ×3 (00:19→22:03)
[2021-06-26] MEDS: HEPARIN SODIUM,PORCINE/PF 5,000 UNIT/0.5 ML SYRINGE SQ SCH ×4 (00:35→23:47)
[2021-06-26] MEDS: HYDROmorphone 1 MG/ML 1 ML SYRINGE IVP PRN ×4 (02:58→22:03)
[2021-06-26 06:09] LABS: Basophils # (A) 0.1 k/uL (0-0.2); Basophils % (A) 1 %; Eosinophils # (A) 0.2 k/uL (0-0.7); Eosinophils % (A) 2 %; HCT 37.5 % (34.0-46.0); HGB 11.9 gm/dL (11.4-16.0); Hypochromasia Moderate; Lymphocytes # (A) 1.8 k/uL (1.0-4.8); Lymphocytes % (A) 21 %; MCH 31.1 pg (25.0-35.0); MCHC 31.7 g/dL (31.0-37.0); MCV 98.1 fL (80.0-100.0); Mean Platelet Volume 7.9; Monocytes # (A) 0.4 k/uL (0-1.0); Monocytes % (A) 5 %; Neutrophils # (A) 6.1 k/uL (1.3-7.7); Neutrophils % (A) 71 %; Platelet Count 235 k/uL (150-450); RBC 3.82 m/uL (3.80-5.40); RDW 13.3 % (11.5-15.5); WBC 8.7 k/uL (3.8-10.6)
[2021-06-26 06:28] LABS: ALT 8 U/L (4-34); AST 17 U/L (14-36); African American GFR (CKD) >90 (>60 ml/min/1.73 sqM); Albumin/Globulin Ratio 1.3; Alkaline Phosphatase 99 U/L (38-126); Anion Gap 4 mmol/L; Blood Urea Nitrogen 9 mg/dL (7-17); Calcium 8.8 mg/dL (8.4-10.2); Carbon Dioxide 22 mmol/L (22-30); Chloride 110 mmol/L (98-107); Globulin 2.4 g/dL; Glucose 126 mg/dL (74-99); Non-African American GFR(CKD) >90 (>60 ml/min/1.73 sqM); Potassium 3.9 mmol/L (3.5-5.1); Sodium 136 mmol/L (137-145); Total Bilirubin 0.4 mg/dL (0.2-1.3); Total Protein 5.4 g/dL (6.3-8.2)
[2021-06-26 07:24] LABS: Glucose,Whole Blood 135 mg/dL (75-99)
[2021-06-26] MEDS: INSULIN ASPART (NovoLOG) 100 UNIT/ML VIAL SQ SCH ×4 (07:44→20:17)
[2021-06-26] MEDS: SERTRALINE 100 MG TAB PO SCH (07:44)
[2021-06-26] MEDS: metFORMIN 500 MG TAB PO SCH ×2 (07:44→20:16)
[2021-06-26] MEDS ORDERED: IV FLUID CONTINUATION 1,000 ML IV ONE (09:20)
[2021-06-26] MEDS ORDERED: MIDAZOLAM 2 MG/2 ML VIAL IVP ONE (09:41)
[2021-06-26] MEDS ORDERED: ONDANSETRON 4 MG/2 ML VIAL IVP ONE (09:41)
[2021-06-26] MEDS ORDERED: fentaNYL (PF) 50 MCG/ML 2 ML AMP ONE (09:48)
[2021-06-26] MEDS ORDERED: PHENYLEPHRINE-0.9% NACL SYG 1,000 MCG/10 ML SYRINGE ONE (09:48)
[2021-06-26] MEDS ORDERED: MIDAZOLAM 2 MG/2 ML VIAL ONE (09:48)
[2021-06-26] MEDS ORDERED: KETAMINE 10 MG/ML 20 ML VIAL ONE (09:48)
[2021-06-26] MEDS ORDERED: diphenhydrAMINE 50 MG/ML 1 ML VIAL ONE (09:48)
[2021-06-26 09:51] LABS: Glucose,Whole Blood 101 mg/dL (75-99)
[2021-06-26] MEDS ORDERED: ceFAZolin 1,000 MG in SODIUM CHLORIDE 0.9% 1,000 ML IRRIGATION ONE (10:23)
[2021-06-26] MEDS ORDERED: LACTATED RINGERS 1,000 ML IV ONE (10:54)
[2021-06-26 11:35] LABS: Glucose,Whole Blood 89 mg/dL (75-99)
--- NOTE | 2021-06-26 11:36 | FL ---
EXAMINATION TYPE: FL guidance operating room DATE OF EXAM: 06/26/2021 HISTORY: Fluoroscopy time 1 minute and 6 seconds of fluoroscopy provided. IMPRESSION: 1. Fluoroscopy time.
[2021-06-26] MEDS ORDERED: HYDROmorphone 0.5 MG/0.5 ML SYRINGE IVP ONE (11:42)
[2021-06-26] MEDS ORDERED: hydrALAZINE HCL 20 MG/ML 1 ML VIAL IVP ONE ×2 (11:43→11:50)
--- NOTE | 2021-06-26 11:44 | XR ---
EXAMINATION TYPE: XR Hip Limited LT DATE OF EXAM: 06/26/2021 COMPARISON: NONE HISTORY: Postop TECHNIQUE: One view submitted. FINDINGS: There is postsurgical change in near anatomic alignment. There is soft tissue edema and emphysema. IMPRESSION: 1. Postoperative change. Appears in near-anatomic alignment.
[2021-06-26] MEDS: MULTIVITAMINS, THERA 1 EACH TAB PO SCH (12:23)
--- NOTE | 2021-06-26 14:56 | XR ---
EXAMINATION TYPE: XR Hip Limited LT DATE OF EXAM: 06/26/2021 Comparison: 06/24/2021 Clinical History: 75-year-old female Status post hip surgery, assess surgical alignment Findings: Mild degenerative spurring left hip. Percutaneous pinning across the left femoral neck fracture. We note the 3 screws are relatively infer ior in position. Unclear if the lower 2 screws violate the inferior femoral neck cortex. Impression: New percutaneous pinning of the subcapital left femoral neck fracture. We note somewhat inferior posi tioning of the screws. Unclear if the lower 2 screws violate the inferior femoral neck cortex.
[2021-06-26 17:08] LABS: Glucose,Whole Blood 148 mg/dL (75-99)
[2021-06-26] MEDS: GLIMEPIRIDE 4 MG TAB PO SCH (17:11)
[2021-06-26] MEDS: HYDROcodone/APAP 10-325MG 1 EACH TAB PO PRN (17:11)
--- NOTE | 2021-06-26 18:31 | OP ---
OPERATIVE REPORT DATE OF PROCEDURE: 06/26/2021 SURGEON: Max Sanches M.D. FELTING MACHINE OPERATOR: Manuel Cuevas PA-C PREOPERATIVE DIAGNOSIS: Left valgus impacted femoral neck fracture. POSTOPERATIVE DIAGNOSIS: Left valgus impacted femoral neck fracture. PROCEDURE PERFORMED: Left closed reduction with percutaneous screw fixation for valgus impacted femoral neck fracture. ANESTHESIA: Spinal with sedation. ESTIMATED BLOOD LOSS: 25 mL. TOURNIQUET: None. DRAINS: None. COMPLICATIONS: None apparent. DISPOSITION: Post-Anesthesia Care Unit. INDICATIONS: Ingris is a very pleasant 75-year-old female who slipped and fell onto her left hip the other day. She was brought to [facility] via ambulance. Workup including x- rays revealed a valgus impacted femoral neck fracture. She was admitted to my service. Internal Medicine Service saw her and did appropriate preoperative clearance workup. She is an independent ambulator. She does live at home with her . Recommendation was, given that the fracture was nondisplaced and in a stable valgus impacted pattern, to do a closed reduction with percutaneous screw fixation. Ingris and her would like to proceed with the operation. Risks were explained to the patient which include but are not limited to risk of infection, nerve damage, bleeding, pain, and a small risk of deep vein thrombosis which could lead to fatal pulmonary embolism. Further risks include failure of the fracture to heal, failure of the hardware. There is also a risk of hardware irritation which could necessitate removal of the screws in the future. All of Ingris's questions with regard to the procedure were answered to her satisfaction. Appropriate informed consent was obtained. DESCRIPTION OF THE PROCEDURE: The patient was identified in the preoperative holding area. The surgical site was marked by both the patient and myself. She was given 2 grams of Ancef IV for prophylactic purposes. She was then transported to the operative suite, where she was placed supine on the operating room table. A spinal anesthetic was then administered and dosed per the anesthesia department without apparent complication. She was then placed onto the fracture table, well padded in preparation for surgery. Fluoroscopy was then brought in. Fluoroscopic views were taken to confirm that the fracture remained nondisplaced, and it was. The patient's left lower extremity was then prepped and draped in the usual sterile fashion. Standard surgical pause was undertaken to ensure that we were operating on the correct site and that appropriate preoperative antibiotics had been given. All staff in the room were in agreement and we proceeded. The starting point for the inferior screw was found utilizing fluoroscopy. An approximate 3 cm incision was then made starting from this point proximally. An incision was then made with a 15 blade scalpel. Dissection was carried down sharply to the tensor fascia. The tensor fascia was then incised in line with the incision. I placed the first pin utilizing a freehand-type technique. The threaded guide pin was then placed in the center of the femoral neck on the most inferior aspect of the femoral neck and into the center of the femoral head. Again fluoroscopic imaging was utilized for placement of this screw. I then used the guide to place the anterior superior screw, which was placed as close to the anterior cortex of the femoral neck as much as possible and deep into the femoral head. The posterior threaded guide pin was then placed, and this was also placed as posterior superior as possible so that the screw would abut the posterior cortex of the femoral neck. All of the threaded guide pins were then checked for length. We had a good spread in the femoral head. I then proceeded with placement of the screws. The inferior screw was a John Magna-FX partially threaded cannulated screw with a washer that measured 85 mm. Both the anterior superior and posterior superior screws were 80 mm partially threaded cannulated screws with washers. All 3 screws had excellent purchase in the femoral head and had good bite in bone. Fluoroscopy was utilized to ensure that these screws were of appropriate length and did not violate the hip joint itself. At this point the threaded guide pins were removed. Final fluoroscopic images were taken. All screws were of appropriate length and seated within the femoral head. We had good spread. The inferior screw abutted the inferior cortex. The posterior screw abutted the posterior cortex of the femoral neck and the anterior screw was as close as possible to the anterior cortex of the femoral neck. All 3 screws were well seated deep in the femoral head. The wound was then thoroughly irrigated with sterile saline solution with antibiotic added. The tensor fascia was closed with 0 Vicryl interrupted suture. The subcutaneous tissue closed with 2-0 Vicryl interrupted suture and the skin was closed with stainless steel alida. Sterile compressive dressing was then applied. All sponge and needle counts were deemed correct prior to closure. The patient tolerated the procedure without apparent complication. She was transferred to the recovery room in stable condition. MMODL / IJN: [id number] /
[2021-06-26] MEDS: SODIUM CHLORIDE 0.9% 1,000 ML IV SCH (19:44)
[2021-06-26 20:04] LABS: Glucose,Whole Blood 177 mg/dL (75-99)
[2021-06-26] MEDS: SENNOSIDES-DOCUSATE SODIUM 1 EACH TAB PO SCH (20:16)
[2021-06-26] MEDS: ASPIRIN 81 MG PO SCH (20:17)
--- NOTE | 2021-06-27 00:02 | P.PN ---
Subjective Progress Note Date: 06/26/21 06/26/2021 This is a 75 year old female who was admitted with recent fall and found to have a subcapital fracture of the left femur and is scheduled for surgery today. Patient is maintained on ceftriaxone for possible urinary tract infection and will continue while awaiting cultures. Patient continues with pain and is also mildly hypertensive with no history of. Possibly pain related. Will continue to monitor closely and await surgical report. Patient denies chest pain or shortness of breath. Patient is afebrile. Review of systems: Constitutional: No reports of fatigue, fever, or chills Cardiovascular: No reports of chest pain or palpitations Respiratory: No reports of shortness of breath or cough GI: No reports of nausea, vomiting, or diarrhea : No reports of dysuria or retention Neurovascular: reports of generalized weakness and left hip pain All medications have been reviewed Active Medications Acetaminophen (Acetaminophen Tab 325 Mg Tab) 650 mg PO Q6HR PRN PRN Reason: Mild Pain or Fever > 100.5 Acetaminophen/Codeine Phosphate (Acetaminophen-Codeine 300-30mg Tab) 1 each PO Q3HR PRN PRN Reason: Pain Scale 1 to 5 Hydrocodone Bitart/Acetaminophen (Hydrocodone/Apap 5-325mg 1 Each Tab) 1 each PO Q6HR PRN PRN Reason: Pain Scale 1 to 5 Hydrocodone Bitart/Acetaminophen (Hydrocodone/Apap 10-325mg 1 Each Tab) 1 each PO Q6H PRN PRN Reason: Pain Scale 6 to 10 Last Admin: 06/26/21 17:11 Dose: 1 each Documented by: Aspirin (Aspirin 81 Mg) 81 mg PO BID [facility] Last Admin: 06/26/21 20:17 Dose: 81 mg Documented by: Diazepam (Diazepam 5 Mg Tab) 2.5 mg PO QID PRN PRN Reason: Spasms Last Admin: 06/26/21 22:03 Dose: 2.5 mg Documented by: Glimepiride (Glimepiride 4 Mg Tab) 4 mg PO W/SUPPER [facility] Last Admin: 06/26/21 17:11 Dose: 4 mg Documented by: Heparin Sodium (Porcine) (Heparin Sodium,Porcine/Pf 5,000 Unit/0.5 Ml Syringe) 5,000 unit SQ Q8HR [facility] Last Admin: 06/26/21 15:19 Dose: 5,000 unit Documented by: Hydromorphone HCl (Hydromorphone 1 Mg/Ml 1 Ml Syringe) 0.5 mg IVP Q3HR PRN PRN Reason: Severe Pain Last Admin: 06/26/21 22:03 Dose: 0.5 mg Documented by: Hydromorphone HCl (Hydromorphone 1 Mg/Ml 1 Ml Syringe) 0.2 mg IVP Q3HR PRN PRN Reason: Pain Scale 4 to 6 Hydromorphone HCl (Hydromorphone 1 Mg/Ml 1 Ml Syringe) 0.125 mg IVP Q3HR PRN PRN Reason: Pain Scale 1 to 3 Hydromorphone HCl (Hydromorphone 1 Mg/Ml 1 Ml Syringe) 0.5 mg IVP Q3HR PRN PRN Reason: Pain Scale 7 to 10 Sodium Chloride (Saline 0.9%) 1,000 mls @ 75 mls/hr IV .[id number] [facility] Last Admin: 06/26/21 19:44 Dose: 75 mls/hr Documented by: Ceftriaxone Sodium 1 gm/ (Sodium Chloride) 50 mls @ 100 mls/hr IVPB Q24HR [facility] Last Admin: 06/26/21 08:24 Dose: 100 mls/hr Documented by: Cefazolin Sodium 2 gm/ Sodium (Chloride) 50 mls @ 100 mls/hr IVPB Q8HR [facility] Stop: 06/27/21 00:29 Last Admin: 06/26/21 10:12 Dose: 50 mls Documented by: Insulin Aspart (Insulin Aspart (Novolog) 100 Unit/Ml Vial) 0 unit SQ ACHS [facility]; Protocol Last Admin: 06/26/21 20:17 Dose: 2 unit Documented by: Magnesium Hydroxide (Magnesium Hydroxide 2,400 Mg/10 Ml Cup) 2,400 mg PO DAILY PRN PRN Reason: Constipation Metformin HCl (Metformin 500 Mg Tab) 1,000 mg PO BID [facility] Last Admin: 06/26/21 20:16 Dose: 1,000 mg Documented by: Multivitamins (Multivitamins, Thera 1 Each Tab) 1 each PO DAILY@1200 PAUL Last Admin: 06/26/21 12:23 Dose: Not Given Documented by: Naloxone HCl (Naloxone 0.4 Mg/Ml 1 Ml Vial) 0.2 mg IV Q2M PRN PRN Reason: Opioid Reversal Ondansetron HCl (Ondansetron 4 Mg/2 Ml Vial) 4 mg IVP Q8HR PRN PRN Reason: Nausea And Vomiting Last Admin: 06/26/21 03:06 Dose: 4 mg Documented by: Senna/Docusate Sodium (Sennosides-Docusate Sodium 1 Each Tab) 2 each PO HS [facility] Last Admin: 06/26/21 20:16 Dose: 2 each Documented by: Sertraline HCl (Sertraline 100 Mg Tab) 100 mg PO DAILY [facility] Last Admin: 06/26/21 07:44 Dose: Not Given Documented by: Tramadol HCl (Tramadol 50 Mg Tab) 50 mg PO Q6HR PRN PRN Reason: Pain Scale 1 to 5 PHYSICAL EXAMINATION: GENERAL: The patient is alert and oriented, well developed, well nourished HEENT: Pupils are round and equally reacting to light. EOMI. does have scleral icterus. No conjunctival pallor. Normocephalic, atraumatic. No pharyngeal erythema. No thyromegaly. CARDIOVASCULAR: S1 and S2 muffled PULMONARY: diminished breath sounds bilaterally with no wheezing or rhonchi noted. ABDOMEN: soft. non-tender. Non-distended, normoactive bowel sounds. No palpable organomegaly. MUSCULOSKELETAL: No joint swelling or deformity. EXTREMITIES: No cyanosis, clubbing, or pedal edema. NEUROLOGICAL: Gross neurological examination did not reveal any focal deficits. diffusely weak SKIN: No rashes. Assessment: Acute left subcapital femoral fracture, status post fall Urinary tract infection Diabetes mellitus, type 2 History of pneumonia Full code Plan: Recommend to continue with current medications and management. Patient is scheduled for surgery with orthopedics today and will await report on the left hip. Patient continues on IV rocephin and awaiting urine cultures. Patient mildly hypertensive and could be related to the pain. Will continue to monitor closely and also recommend to continue monitoring accuchecks achs and sliding scale. Due to multiple complex medical issues, prognosis is guarded. Will continue to follow along with orthopedics. Thank you for this consultation. The impression and plan of care has been dictated by Kelly Gannon, nurse practitioner as directed. MD Faustino I have performed a history and examination and MDM of this patient, discussed the same with the dictator, and agree with the dictator's assessment and plan as written ,documented as a scribe. Based on total visit time, I have performed more than 50% of the visit. Any additional findings or plans will be noted. Objective - Vital Signs Vital signs: Vital Signs Temp 97.8 F 06/26/21 09:29 Pulse 89 06/26/21 05:00 Resp 20 06/26/21 09:29 BP 181/80 06/26/21 09:29 Pulse Ox 95 06/26/21 09:29 Intake & Output 06/25/21 06/26/21 06/26/21 18:59 06:59 18:59 Intake Total 950 900 251 Output Total 400 600 Balance 550 300 251 Intake: IV 251 Intake, IV Titration 950 900 Amount Sodium Chloride 0.9% 1, 900 900 000 ml @ 75 mls/hr IV . [id number] [facility] Rx#:[id number] cefTRIAXone 1 gm In 50 Sodium Chloride 0.9% 50 ml @ 100 mls/hr IVPB Q24HR [facility] Rx#:[id number] Output: Urine 400 600 Other: Voiding Method Indwelling Catheter Indwelling Catheter Indwelling Catheter # Bowel Movements 0 - Labs CBC & Chem 7: 06/26/21 05:30 06/26/21 05:30 Labs: Abnormal Lab Results - Last 24 Hours (Table) 06/25/21 06/25/21 06/25/21 Range/Units 11:46 16:48 20:05 Sodium (137-145) mmol/L Chloride (98-107) mmol/L Glucose (74-99) mg/dL POC Glucose (mg/dL) 190 H 128 H 170 H (75-99) mg/dL Total Protein (6.3-8.2) g/dL Albumin (3.5-5.0) g/dL 06/26/21 06/26/21 06/26/21 Range/Units 05:30 07:22 09:45 Sodium 136 L (137-145) mmol/L Chloride 110 H (98-107) mmol/L Glucose 126 H (74-99) mg/dL POC Glucose (mg/dL) 135 H 101 H (75-99) mg/dL Total Protein 5.4 L (6.3-8.2) g/dL Albumin 3.0 L (3.5-5.0) g/dL Microbiology - Last 24 Hours (Table) 06/24/21 23:50 Urine Culture - Preliminary Urine,Catheterized
[2021-06-27] MEDS: SODIUM CHLORIDE 0.9% 1,000 ML IV SCH ×2 (01:45→16:27)
[2021-06-27] MEDS: diazePAM 5 MG TAB PO PRN ×2 (03:52→13:40)
[2021-06-27] MEDS: HYDROcodone/APAP 10-325MG 1 EACH TAB PO PRN ×2 (03:53→11:19)
[2021-06-27 07:09] LABS: Glucose,Whole Blood 134 mg/dL (75-99)
[2021-06-27] MEDS: INSULIN ASPART (NovoLOG) 100 UNIT/ML VIAL SQ SCH ×4 (07:41→21:15)
[2021-06-27] MEDS: SERTRALINE 100 MG TAB PO SCH (08:50)
[2021-06-27] MEDS: HEPARIN SODIUM,PORCINE/PF 5,000 UNIT/0.5 ML SYRINGE SQ SCH ×3 (08:50→23:23)
[2021-06-27] MEDS: ASPIRIN 81 MG PO SCH ×2 (08:50→21:14)
[2021-06-27] MEDS: metFORMIN 500 MG TAB PO SCH ×2 (08:50→21:14)
[2021-06-27] MEDS ORDERED: amLODIPine 5 MG TAB PO SCH (10:00)
[2021-06-27 10:16] LABS: African American GFR (CKD) >90 (>60 ml/min/1.73 sqM); Anion Gap 5 mmol/L; Blood Urea Nitrogen 6 mg/dL (7-17); Calcium 8.3 mg/dL (8.4-10.2); Carbon Dioxide 23 mmol/L (22-30); Chloride 108 mmol/L (98-107); Glucose 140 mg/dL (74-99); Non-African American GFR(CKD) >90 (>60 ml/min/1.73 sqM); Potassium 3.6 mmol/L (3.5-5.1); Sodium 136 mmol/L (137-145)
[2021-06-27 10:48] LABS: Basophils # (A) 0.04 X 10*3/uL (0.00-0.10); Basophils % (A) 0.4 %; Eosinophils # (A) 0.11 X 10*3/uL (0.04-0.35); Eosinophils % (A) 1.1 %; HCT 34.4 % (37.2-46.3); HGB 10.8 g/dL (12.0-15.0); Immature Grans, Automated 0.9 %; Lymphocytes # (A) 1.35 X 10*3/uL (0.90-5.00); Lymphocytes % (A) 13.4 %; MCH 29.7 pg (27.0-32.0); MCHC 31.4 g/dL (32.0-37.0); MCV 94.5 fL (80.0-97.0); Mean Platelet Volume 10.5 fL (9.5-12.2); Monocytes # (A) 0.97 X 10*3/uL (0.20-1.00); Monocytes % (A) 9.6 %; NRBC Per 100 WBC 0 /100 WBCS (0.0-0.0); Neutrophils # (A) 7.54 X 10*3/uL (1.80-7.70); Neutrophils % (A) 74.6 %; Platelet Count 254 X 10*3/uL (140-440); RBC 3.64 X 10*6/uL (4.10-5.20); RDW 13.4 % (11.5-14.5)
[2021-06-27 11:15] LABS: Glucose,Whole Blood 129 mg/dL (75-99)
[2021-06-27] MEDS: MULTIVITAMINS, THERA 1 EACH TAB PO SCH (11:23)
--- NOTE | 2021-06-27 14:42 | P.PN ---
Subjective Progress Note Date: 06/27/21 Principal diagnosis: Left hip fracture Patient is seen at bedside this morning. She is postop day #1 from perc pinning of left subcapital femur fractur. She has pain at the surgical site as expected but denies any new complaints. She denies numbness, tingling or calf pain. R eview of systems is negative for fever, chills, chest pain, shortness of breath or other Objective - Vital Signs Vital signs: Vital Signs Temp 98.5 F 06/27/21 11:10 Pulse 92 06/27/21 11:10 Resp 16 06/27/21 11:10 BP 180/70 06/27/21 11:10 Pulse Ox 94 L 06/27/21 11:10 Intake & Output 06/26/21 06/27/21 06/27/21 18:59 06:59 18:59 Intake Total 751 240 Output Total 605 1000 Balance 146 -760 Intake: IV 751 Oral 240 Output: Urine 580 1000 Uretheral (Schmid) 500 Estimated Blood Loss 25 Other: Voiding Method Indwelling Catheter Indwelling Catheter # Bowel Movements 0 - Exam Inspection reveals a benign surgical wound. There is no active bleeding or drainage. Neurovascular status is intact throughout the lower extremity with motor and sensation fully intact. Calf is soft and nontender. 2+ dorsalis pe dis pulse and less than 2 second cap refill is present. - Constitutional General appearance: Present: no acute distress - Labs CBC & Chem 7: 06/27/21 05:40 06/27/21 05:40 Labs: Abnormal Lab Results - Last 24 Hours (Table) 06/26/21 06/26/21 06/27/21 Range/Units 17:04 20:03 05:40 WBC 10.10 H (4.50-10.00) X 10*3/uL RBC 3.64 L (4.10-5.20) X 10*6/uL Hgb 10.8 L (12.0-15.0) g/dL Hct 34.4 L (37.2-46.3) % MCHC 31.4 L (32.0-37.0) g/dL Immature Gran # 0.09 H (0.00-0.04) X 10*3/uL Sodium (137-145) mmol/L Chloride (98-107) mmol/L BUN (7-17) mg/dL Glucose (74-99) mg/dL POC Glucose (mg/dL) 148 H 177 H (75-99) mg/dL Calcium (8.4-10.2) mg/dL 06/27/21 06/27/21 06/27/21 Range/Units 05:40 07:08 11:14 WBC (4.50-10.00) X 10*3/uL RBC (4.10-5.20) X 10*6/uL Hgb (12.0-15.0) g/dL Hct (37.2-46.3) % MCHC (32.0-37.0) g/dL Immature Gran # (0.00-0.04) X 10*3/uL Sodium 136 L (137-145) mmol/L Chloride 108 H (98-107) mmol/L BUN 6 L (7-17) mg/dL Glucose 140 H (74-99) mg/dL POC Glucose (mg/dL) 134 H 129 H (75-99) mg/dL Calcium 8.3 L (8.4-10.2) mg/dL Microbiology - Last 24 Hours (Table) 06/25/21 11:27 Blood Culture - Preliminary Blood No Growth after 48 hours 06/24/21 23:50 Urine Culture - Final Urine,Catheterized Assessment and Plan (1) Femur fracture, left Narrative/Plan: She will continue with routine postop orthopedic protocol including pain management, wound care, PT, DVT prophylaxis and medical management. TTWB. Expect that she will transfer to ECF in next 1-2 days Current Visit: Yes Status: Acute Code(s): S72.92XA - UNSP FRACTURE OF LEFT FEMUR, INIT ENCNTR FOR CLOSED FRACTURE SNOMED Code(s): 82581623 Time with Patient: Less than 30
[2021-06-27] MEDS ORDERED: HYDROcodone/APAP 7.5-325MG 1 EACH TAB PO PRN (15:33)
[2021-06-27 17:02] LABS: Glucose,Whole Blood 144 mg/dL (75-99)
[2021-06-27] MEDS: GLIMEPIRIDE 4 MG TAB PO SCH (17:43)
[2021-06-27 20:28] LABS: Glucose,Whole Blood 168 mg/dL (75-99)
[2021-06-27] MEDS: HYDROmorphone 1 MG/ML 1 ML SYRINGE IVP PRN (21:10)
[2021-06-27] MEDS: SENNOSIDES-DOCUSATE SODIUM 1 EACH TAB PO SCH (21:14)
[2021-06-27] MEDS: HYDROcodone/APAP 7.5-325MG 1 EACH TAB PO PRN (23:23)
--- NOTE | 2021-06-28 01:16 | P.PN ---
Subjective Progress Note Date: 06/27/21 06/26/2021 This is a 75 year old female who was admitted with recent fall and found to have a subcapital fracture of the left femur and is scheduled for surgery today. Patient is maintained on ceftriaxone for possible urinary tract infection and will continue while awaiting cultures. Patient continues with pain and is also mildly hypertensive with no history of. Possibly pain related. Will continue to monitor closely and await surgical report. Patient denies chest pain or shortness of breath. Patient is afebrile. 06/27/2021 Patient is seen in follow up this morning and is status post surgical repair of the left femur fracture with orthopedics as primary. Patient continues to have severe pain and is very guarding of the left hip on exam. Surgical dressing is dry and intact. Patient denies any shortness of breath or chest pain. Patient was maintained on normal saline and is eating and drinking and tolerating diet and will discontinue. Patient continues to be hypertensive and started on nor vasc and will increase to 10mg daily. Patient reports to passing gas. Patient with mild low grade temp. Patient maintained on IV rocephin and will continue for now. Urine cultures are negative. Review of systems: Constitutional: No reports of fatigue, fever, or chills Cardiovascular: No reports of chest pain or palpitations Respiratory: No reports of shortness of breath or cough GI: No reports of nausea, vomiting, or diarrhea : No reports of dysuria or retention Neurovascular: reports of generalized weakness and left hip pain All medications have been reviewed Active Medications Acetaminophen (Acetaminophen Tab 325 Mg Tab) 650 mg PO Q6HR PRN PRN Reason: Mild Pain or Fever > 100.5 Acetaminophen/Codeine Phosphate (Acetaminophen-Codeine 300-30mg Tab) 1 each PO Q3HR PRN PRN Reason: Pain Scale 1 to 5 Hydrocodone Bitart/Acetaminophen (Hydrocodone/Apap 7.5-325mg 1 Each Tab) 1 each PO Q4H PRN PRN Reason: Pain Scale 1 to 5 Last Admin: 06/27/21 23:23 Dose: 1 each Documented by: Hydrocodone Bitart/Acetaminophen (Hydrocodone/Apap 7.5-325mg 1 Each Tab) 2 each PO Q6H PRN PRN Reason: Pain Scale 6 to 10 Amlodipine Besylate (Amlodipine 5 Mg Tab) 10 mg PO DAILY [facility] Aspirin (Aspirin 81 Mg) 81 mg PO BID [facility] Last Admin: 06/27/21 21:14 Dose: 81 mg Documented by: Diazepam (Diazepam 5 Mg Tab) 5 mg PO QID PRN PRN Reason: Spasms Glimepiride (Glimepiride 4 Mg Tab) 4 mg PO W/SUPPER [facility] Last Admin: 06/27/21 17:43 Dose: 4 mg Documented by: Heparin Sodium (Porcine) (Heparin Sodium,Porcine/Pf 5,000 Unit/0.5 Ml Syringe) 5,000 unit SQ Q8HR [facility] Last Admin: 06/27/21 23:23 Dose: 5,000 unit Documented by: Hydromorphone HCl (Hydromorphone 1 Mg/Ml 1 Ml Syringe) 0.5 mg IVP Q3HR PRN PRN Reason: Severe Pain Last Admin: 06/27/21 21:10 Dose: 0.5 mg Documented by: Hydromorphone HCl (Hydromorphone 1 Mg/Ml 1 Ml Syringe) 0.2 mg IVP Q3HR PRN PRN Reason: Pain Scale 4 to 6 Hydromorphone HCl (Hydromorphone 1 Mg/Ml 1 Ml Syringe) 0.125 mg IVP Q3HR PRN PRN Reason: Pain Scale 1 to 3 Hydromorphone HCl (Hydromorphone 1 Mg/Ml 1 Ml Syringe) 0.5 mg IVP Q3HR PRN PRN Reason: Pain Scale 7 to 10 Ceftriaxone Sodium 1 gm/ (Sodium Chloride) 50 mls @ 100 mls/hr IVPB Q24HR [facility] Last Admin: 06/27/21 08:50 Dose: 100 mls/hr Documented by: Insulin Aspart (Insulin Aspart (Novolog) 100 Unit/Ml Vial) 0 unit SQ ACHS [facility]; Protocol Last Admin: 06/27/21 21:15 Dose: 2 unit Documented by: Magnesium Hydroxide (Magnesium Hydroxide 2,400 Mg/10 Ml Cup) 2,400 mg PO DAILY PRN PRN Reason: Constipation Metformin HCl (Metformin 500 Mg Tab) 1,000 mg PO BID [facility] Last Admin: 06/27/21 21:14 Dose: 1,000 mg Documented by: Multivitamins (Multivitamins, Thera 1 Each Tab) 1 each PO DAILY@1200 [facility] Last Admin: 06/27/21 11:23 Dose: 1 each Documented by: Naloxone HCl (Naloxone 0.4 Mg/Ml 1 Ml Vial) 0.2 mg IV Q2M PRN PRN Reason: Opioid Reversal Ondansetron HCl (Ondansetron 4 Mg/2 Ml Vial) 4 mg IVP Q8HR PRN PRN Reason: Nausea And Vomiting Last Admin: 06/26/21 03:06 Dose: 4 mg Documented by: Senna/Docusate Sodium (Sennosides-Docusate Sodium 1 Each Tab) 2 each PO HS [facility] Last Admin: 06/27/21 21:14 Dose: 2 each Documented by: Sertraline HCl (Sertraline 100 Mg Tab) 100 mg PO DAILY [facility] Last Admin: 06/27/21 08:50 Dose: 100 mg Documented by: Tramadol HCl (Tramadol 50 Mg Tab) 50 mg PO Q6HR PRN PRN Reason: Pain Scale 1 to 5 PHYSICAL EXAMINATION: GENERAL: The patient is alert and oriented, well developed, well nourished HEENT: Pupils are round and equally reacting to light. EOMI. does have scleral icterus. No conjunctival pallor. Normocephalic, atraumatic. No pharyngeal erythema. No thyromegaly. CARDIOVASCULAR: S1 and S2 muffled PULMONARY: diminished breath sounds bilaterally with no wheezing or rhonchi noted. ABDOMEN: soft. non-tender. Non-distended, normoactive bowel sounds. No palpable organomegaly. MUSCULOSKELETAL: No joint swelling or deformity. EXTREMITIES: No cyanosis, clubbing, or pedal edema. left surgical site is dry and intact. guarding of the left hip noted on exam NEUROLOGICAL: Gross neurological examination did not reveal any focal deficits. diffusely weak SKIN: No rashes. Assessment: Acute left subcapital femoral fracture, status post fall status post pinning of left femur fracture mild leukocytosis, most likely reactive secondary to recent surgery hypertension, possibly related to pain Urinary tract infection Diabetes mellitus, type 2 History of pneumonia Full code Plan: Recommend to continue with current medications and management. Patient underwent surgery with orthopedics yesterday on the left femur. Patient continues on IV rocephin and urine cultures are negative although will continue for now as wbc is mildly elevated and low grade temps. wbc elevation most likely reactive, but will repeat labs and monitor closely. . Patient continues to be hypertensive and could be related to the pain but have added norvasc. Will continue to monitor closely and also recommend to continue monitoring accuchecks achs and sliding scale. Due to multiple complex medical issues, prognosis is guarded. Will continue to follow along with orthopedics. Thank you for this consultation. The impression and plan of care has been dictated by Kelly Gannon, nurse practitioner as directed. MD Faustino I have performed a history and examination and MDM of this patient, discussed the same with the dictator, and agree with the dictator's assessment and plan as written ,documented as a scribe. Based on total visit time, I have performed more than 50% of the visit. Any additional findings or plans will be noted. Objective - Vital Signs Vital signs: Vital Signs Temp 100.1 F H 06/27/21 04:00 Pulse 94 06/27/21 04:00 Resp 24 06/27/21 04:00 BP 169/68 06/27/21 04:00 Pulse Ox 97 06/27/21 04:00 Intake & Output 06/26/21 06/27/21 06/27/21 18:59 06:59 18:59 Intake Total 751 240 Output Total 605 1000 Balance 146 -760 Intake: IV 751 Oral 240 Output: Urine 580 1000 Uretheral (Schmid) 500 Estimated Blood Loss 25 Other: Voiding Method Indwelling Catheter Indwelling Catheter # Bowel Movements 0 - Labs CBC & Chem 7: 06/27/21 05:40 06/27/21 05:40 Labs: Abnormal Lab Results - Last 24 Hours (Table) 06/26/21 06/26/21 06/27/21 Range/Units 17:04 20:03 07:08 POC Glucose (mg/dL) 148 H 177 H 134 H (75-99) mg/dL Microbiology - Last 24 Hours (Table) 06/25/21 11:27 Blood Culture - Preliminary Blood No Growth after 24 hours 06/24/21 23:50 Urine Culture - Final Urine,Catheterized
[2021-06-28] MEDS: HYDROcodone/APAP 7.5-325MG 1 EACH TAB PO PRN ×2 (05:05→15:15)
[2021-06-28 07:33] LABS: Glucose,Whole Blood 103 mg/dL (75-99)
[2021-06-28] MEDS: INSULIN ASPART (NovoLOG) 100 UNIT/ML VIAL SQ SCH ×4 (08:05→21:05)
[2021-06-28] MEDS: HEPARIN SODIUM,PORCINE/PF 5,000 UNIT/0.5 ML SYRINGE SQ SCH ×2 (08:11→15:15)
[2021-06-28] MEDS: metFORMIN 500 MG TAB PO SCH ×2 (08:11→21:04)
[2021-06-28] MEDS: amLODIPine 10 MG TAB PO SCH (08:12)
[2021-06-28] MEDS: ASPIRIN 81 MG PO SCH ×2 (08:12→21:04)
[2021-06-28] MEDS: SERTRALINE 100 MG TAB PO SCH (08:12)
[2021-06-28 09:00] LABS: Basophils # (A) 0.04 X 10*3/uL (0.00-0.10); Basophils % (A) 0.4 %; Eosinophils # (A) 0.12 X 10*3/uL (0.04-0.35); Eosinophils % (A) 1.1 %; HCT 33.5 % (37.2-46.3); HGB 10.7 g/dL (12.0-15.0); Immature Grans, Automated 0.8 %; Lymphocytes # (A) 1.51 X 10*3/uL (0.90-5.00); Lymphocytes % (A) 13.4 %; MCH 29.4 pg (27.0-32.0); MCHC 31.9 g/dL (32.0-37.0); Mean Platelet Volume 10.3 fL (9.5-12.2); Monocytes % (A) 9.8 %; NRBC Per 100 WBC 0 /100 WBCS (0.0-0.0); Neutrophils # (A) 8.41 X 10*3/uL (1.80-7.70); Neutrophils % (A) 74.5 %; Platelet Count 260 X 10*3/uL (140-440); RBC 3.64 X 10*6/uL (4.10-5.20); RDW 13.4 % (11.5-14.5); WBC 11.27 X 10*3/uL (4.50-10.00)
--- NOTE | 2021-06-28 09:50 | P.PN ---
Subjective Progress Note Date: 06/28/21 Principal diagnosis: Status post left hip percutaneous pinning This is a 75 year-old female post left hip percutaneous pinning. This is post- op day 2. The patient was evaluated at the bedside today. The patient denies nausea, vomiting, abdominal pain, shortness of breath, and chest pain this morning. She states her pain is controlled at this time. The patient has been up with physical therapy. Objective - Vital Signs Vital signs: Vital Signs Temp 98.6 F 06/28/21 04:48 Pulse 94 06/28/21 08:16 Resp 16 06/28/21 08:16 BP 159/66 06/28/21 08:16 Pulse Ox 94 L 06/28/21 08:16 Intake & Output 06/27/21 06/28/21 06/28/21 18:59 06:59 18:59 Intake Total 950 750 Output Total 1450 Balance 950 -700 Intake: Intake, IV Titration 950 750 Amount Sodium Chloride 0.9% 1, 900 750 000 ml @ 75 mls/hr IV . [id number] [facility] Rx#:[id number] ceFAZolin 2 gm In Sodium 50 Chloride 0.9% 50 ml @ 100 mls/hr IVPB Q8HR [facility] Rx# :[id number] Output: Urine 1450 Other: Voiding Method Indwelling Catheter - Exam The patient does not appear in acute distress. Alert and orientated x3. Dressing is clean dry and intact. Incision appears fine with no erythema or active drainage. Calf is soft and nontender. Good foot and ankle motion without difficulty. Sensation and circulatory status is intact. - Labs CBC & Chem 7: 06/28/21 06:18 06/27/21 05:40 Labs: Abnormal Lab Results - Last 24 Hours (Table) 06/27/21 06/27/21 06/27/21 Range/Units 05:40 05:40 11:14 WBC 10.10 H (4.50-10.00) X 10*3/uL RBC 3.64 L (4.10-5.20) X 10*6/uL Hgb 10.8 L (12.0-15.0) g/dL Hct 34.4 L (37.2-46.3) % MCHC 31.4 L (32.0-37.0) g/dL Immature Gran # 0.09 H (0.00-0.04) X 10*3/uL Neutrophils # (1.80-7.70) X 10*3/uL Monocytes # (0.20-1.00) X 10*3/uL Sodium 136 L (137-145) mmol/L Chloride 108 H (98-107) mmol/L BUN 6 L (7-17) mg/dL Glucose 140 H (74-99) mg/dL POC Glucose (mg/dL) 129 H (75-99) mg/dL Calcium 8.3 L (8.4-10.2) mg/dL 06/27/21 06/27/21 06/28/21 Range/Units 17:00 20:26 06:18 WBC 11.27 H (4.50-10.00) X 10*3/uL RBC 3.64 L (4.10-5.20) X 10*6/uL Hgb 10.7 L (12.0-15.0) g/dL Hct 33.5 L (37.2-46.3) % MCHC 31.9 L (32.0-37.0) g/dL Immature Gran # 0.09 H (0.00-0.04) X 10*3/uL Neutrophils # 8.41 H (1.80-7.70) X 10*3/uL Monocytes # 1.10 H (0.20-1.00) X 10*3/uL Sodium (137-145) mmol/L Chloride (98-107) mmol/L BUN (7-17) mg/dL Glucose (74-99) mg/dL POC Glucose (mg/dL) 144 H 168 H (75-99) mg/dL Calcium (8.4-10.2) mg/dL 06/28/21 Range/Units 07:32 WBC (4.50-10.00) X 10*3/uL RBC (4.10-5.20) X 10*6/uL Hgb (12.0-15.0) g/dL Hct (37.2-46.3) % MCHC (32.0-37.0) g/dL Immature Gran # (0.00-0.04) X 10*3/uL Neutrophils # (1.80-7.70) X 10*3/uL Monocytes # (0.20-1.00) X 10*3/uL Sodium (137-145) mmol/L Chloride (98-107) mmol/L BUN (7-17) mg/dL Glucose (74-99) mg/dL POC Glucose (mg/dL) 103 H (75-99) mg/dL Calcium (8.4-10.2) mg/dL Microbiology - Last 24 Hours (Table) 06/25/21 11:27 Blood Culture - Preliminary Blood No Growth after 48 hours Assessment and Plan (1) Status post hip surgery Current Visit: Yes Status: Acute Code(s): Z98.890 - OTHER SPECIFIED POSTPROCEDURAL STATES SNOMED Code(s): 713008744 (2) Fall Current Visit: Yes Status: Acute Code(s): W19.XXXA - UNSPECIFIED FALL, INITIAL ENCOUNTER SNOMED Code(s): 3565115 (3) Femur fracture, left Current Visit: Yes Status: Acute Code(s): S72.92XA - UNSP FRACTURE OF LEFT FEMUR, INIT ENCNTR FOR CLOSED FRACTURE SNOMED Code(s): 94437114 Plan: 1. Continue pain control 2. Anticoagulation with Aspirin 3. Continue physical therapy and ambulation. Toe touch weightbearing to the left lower extremity. 4. Anticipate discharge to skilled rehab likely on Wednesday.
[2021-06-28 11:44] LABS: Glucose,Whole Blood 118 mg/dL (75-99)
[2021-06-28] MEDS: MULTIVITAMINS, THERA 1 EACH TAB PO SCH (15:15)
[2021-06-28 17:19] LABS: Glucose,Whole Blood 156 mg/dL (75-99)
[2021-06-28] MEDS: GLIMEPIRIDE 4 MG TAB PO SCH (17:50)
[2021-06-28 20:03] LABS: Glucose,Whole Blood 140 mg/dL (75-99)
[2021-06-28] MEDS: diazePAM 5 MG TAB PO PRN (21:04)
[2021-06-28] MEDS: SENNOSIDES-DOCUSATE SODIUM 1 EACH TAB PO SCH (21:04)
--- NOTE | 2021-06-28 21:30 | P.PN ---
Subjective Progress Note Date: 06/28/21 75 year old female who was admitted with recent fall and found to have a subcapital fracture of the left femur and is scheduled for surgery today. Patient is maintained on ceftriaxone for possible urinary tract infection and will continue while awaiting cultures. Patient continues with pain and is also mildly hypertensive with no history of. Possibly pain related. Will continue to monitor closely and await surgical report. Patient denies chest pain or shortness of breath. Patient is afebrile. Weights transferred to skilled rehab once arrangements are made Objective - Vital Signs Vital signs: Vital Signs Temp 98.6 F 06/28/21 04:48 Pulse 94 06/28/21 08:16 Resp 16 06/28/21 08:16 BP 159/66 06/28/21 08:16 Pulse Ox 94 L 06/28/21 08:16 Intake & Output 06/27/21 06/28/21 06/28/21 18:59 06:59 18:59 Intake Total 950 750 Output Total 1450 Balance 950 -700 Intake: Intake, IV Titration 950 750 Amount Sodium Chloride 0.9% 1, 900 750 000 ml @ 75 mls/hr IV . [id number] [facility] Rx#:[id number] ceFAZolin 2 gm In Sodium 50 Chloride 0.9% 50 ml @ 100 mls/hr IVPB Q8HR [facility] Rx# :[id number] Output: Urine 1450 Other: Voiding Method Indwelling Catheter Indwelling Catheter - Exam GENERAL: The patient is alert and oriented, well developed, well nourished HEENT: Pupils are round and equally reacting to light. EOMI. does have scleral icterus. No conjunctival pallor. Normocephalic, atraumatic. No pharyngeal erythema. No thyromegaly. CARDIOVASCULAR: S1 and S2 muffled PULMONARY: diminished breath sounds bilaterally with no wheezing or rhonchi noted. ABDOMEN: soft. non-tender. Non-distended, normoactive bowel sounds. No palpable organomegaly. MUSCULOSKELETAL: No joint swelling or deformity. EXTREMITIES: No cyanosis, clubbing, or pedal edema. left surgical site is dry and intact. guarding of the left hip noted on exam NEUROLOGICAL: Gross neurological examination did not reveal any focal deficits. diffusely weak SKIN: No rashes. - Labs CBC & Chem 7: 06/28/21 06:18 06/27/21 05:40 Labs: Abnormal Lab Results - Last 24 Hours (Table) 06/27/21 06/27/21 06/28/21 Range/Units 17:00 20:26 06:18 WBC 11.27 H (4.50-10.00) X 10*3/uL RBC 3.64 L (4.10-5.20) X 10*6/uL Hgb 10.7 L (12.0-15.0) g/dL Hct 33.5 L (37.2-46.3) % MCHC 31.9 L (32.0-37.0) g/dL Immature Gran # 0.09 H (0.00-0.04) X 10*3/uL Neutrophils # 8.41 H (1.80-7.70) X 10*3/uL Monocytes # 1.10 H (0.20-1.00) X 10*3/uL POC Glucose (mg/dL) 144 H 168 H (75-99) mg/dL 06/28/21 06/28/21 Range/Units 07:32 11:43 WBC (4.50-10.00) X 10*3/uL RBC (4.10-5.20) X 10*6/uL Hgb (12.0-15.0) g/dL Hct (37.2-46.3) % MCHC (32.0-37.0) g/dL Immature Gran # (0.00-0.04) X 10*3/uL Neutrophils # (1.80-7.70) X 10*3/uL Monocytes # (0.20-1.00) X 10*3/uL POC Glucose (mg/dL) 103 H 118 H (75-99) mg/dL Microbiology - Last 24 Hours (Table) 06/25/21 11:27 Blood Culture - Preliminary Blood No Growth after 72 hours Assessment and Plan Assessment: Acute left subcapital femoral fracture, status post fall status post pinning of left femur fracture mild leukocytosis, most likely reactive secondary to recent surgery hypertension, possibly related to pain Urinary tract infection Diabetes mellitus, type 2 History of pneumonia Full code Plan: Recommend to continue with current medications and management. Patient underwent surgery with orthopedics yesterday on the left femur. Patient continues on IV rocephin and urine cultures are negative although will continue for now as wbc is mildly elevated and low grade temps. wbc elevation most likely reactive, but will repeat labs and monitor closely. . Patient continues to be hypertensive and could be related to the pain but have added norvasc. Will continue to monitor closely and also recommend to continue monitoring accuchecks achs and sliding scale. Due to multiple complex medical issues, prognosis is guarded. Will continue to follow along with orthopedics. Thank you for this consultation.
[2021-06-29] MEDS: HEPARIN SODIUM,PORCINE/PF 5,000 UNIT/0.5 ML SYRINGE SQ SCH ×3 (00:03→15:36)
[2021-06-29] MEDS: HYDROcodone/APAP 7.5-325MG 1 EACH TAB PO PRN ×3 (02:04→20:40)
[2021-06-29 07:17] LABS: Glucose,Whole Blood 68 mg/dL (75-99)
[2021-06-29] MEDS: INSULIN ASPART (NovoLOG) 100 UNIT/ML VIAL SQ SCH ×4 (07:19→20:41)
[2021-06-29 07:44] LABS: Glucose,Whole Blood 97 mg/dL (75-99)
[2021-06-29] MEDS: SERTRALINE 100 MG TAB PO SCH (08:29)
[2021-06-29] MEDS: amLODIPine 10 MG TAB PO SCH (08:29)
[2021-06-29] MEDS: diazePAM 5 MG TAB PO PRN ×3 (08:29→22:56)
[2021-06-29] MEDS: ASPIRIN 81 MG PO SCH ×2 (08:29→20:39)
[2021-06-29] MEDS: metFORMIN 500 MG TAB PO SCH ×2 (08:30→20:39)
--- NOTE | 2021-06-29 08:57 | P.PN ---
Subjective Progress Note Date: 06/29/21 Principal diagnosis: Status post left hip percutaneous pinning This is a 75 year-old female post left hip percutaneous pinning. This is post- op day 3. The patient was evaluated at the bedside today. The patient denies nausea, vomiting, abdominal pain, shortness of breath, and chest pain this morning. She states her pain is controlled at this time. The patient has been up with physical therapy. Objective - Vital Signs Vital signs: Vital Signs Temp 98.2 F 06/29/21 04:57 Pulse 87 06/29/21 04:57 Resp 16 06/29/21 04:57 BP 184/71 06/29/21 04:57 Pulse Ox 97 06/29/21 04:57 Intake & Output 06/28/21 06/29/21 06/29/21 18:59 06:59 18:59 Intake Total 590 Output Total 1050 Balance -460 Intake: Oral 590 Output: Urine 1050 Other: Voiding Method Indwelling Catheter Indwelling Catheter - Exam The patient does not appear in acute distress. Alert and orientated x3. Dressing is clean dry and intact. Incision appears fine with no erythema or active drainage. Calf is soft and nontender. Good foot and ankle motion without difficulty. Sensation and circulatory status is intact. - Labs CBC & Chem 7: 06/28/21 06:18 06/27/21 05:40 Labs: Abnormal Lab Results - Last 24 Hours (Table) 06/28/21 06/28/21 06/28/21 Range/Units 06:18 11:43 17:18 WBC 11.27 H (4.50-10.00) X 10*3/uL RBC 3.64 L (4.10-5.20) X 10*6/uL Hgb 10.7 L (12.0-15.0) g/dL Hct 33.5 L (37.2-46.3) % MCHC 31.9 L (32.0-37.0) g/dL Immature Gran # 0.09 H (0.00-0.04) X 10*3/uL Neutrophils # 8.41 H (1.80-7.70) X 10*3/uL Monocytes # 1.10 H (0.20-1.00) X 10*3/uL POC Glucose (mg/dL) 118 H 156 H (75-99) mg/dL 06/28/21 06/29/21 Range/Units 20:02 07:16 WBC (4.50-10.00) X 10*3/uL RBC (4.10-5.20) X 10*6/uL Hgb (12.0-15.0) g/dL Hct (37.2-46.3) % MCHC (32.0-37.0) g/dL Immature Gran # (0.00-0.04) X 10*3/uL Neutrophils # (1.80-7.70) X 10*3/uL Monocytes # (0.20-1.00) X 10*3/uL POC Glucose (mg/dL) 140 H 68 L (75-99) mg/dL Microbiology - Last 24 Hours (Table) 06/25/21 11:27 Blood Culture - Preliminary Blood No Growth after 72 hours Assessment and Plan (1) Status post hip surgery Current Visit: Yes Status: Acute Code(s): Z98.890 - OTHER SPECIFIED POSTPROCEDURAL STATES SNOMED Code(s): 816805274 (2) Fall Current Visit: Yes Status: Acute Code(s): W19.XXXA - UNSPECIFIED FALL, INITIAL ENCOUNTER SNOMED Code(s): 2129417 (3) Femur fracture, left Current Visit: Yes Status: Acute Code(s): S72.92XA - UNSP FRACTURE OF LEFT FEMUR, INIT ENCNTR FOR CLOSED FRACTURE SNOMED Code(s): 72109806 Plan: 1. Continue pain control 2. Anticoagulation with Aspirin 3. Continue physical therapy and ambulation. Toe touch weightbearing to the left lower extremity. 4. Anticipate discharge to skilled rehab on Wednesday.
[2021-06-29 10:58] LABS: Basophils # (A) 0.05 X 10*3/uL (0.00-0.10); Basophils % (A) 0.5 %; Eosinophils # (A) 0.17 X 10*3/uL (0.04-0.35); Eosinophils % (A) 1.7 %; HCT 34.7 % (37.2-46.3); HGB 10.8 g/dL (12.0-15.0); Lymphocytes % (A) 19.6 %; MCH 28.6 pg (27.0-32.0); MCHC 31.1 g/dL (32.0-37.0); MCV 91.8 fL (80.0-97.0); Mean Platelet Volume 10.3 fL (9.5-12.2); Monocytes # (A) 0.89 X 10*3/uL (0.20-1.00); Monocytes % (A) 8.7 %; NRBC Per 100 WBC 0 /100 WBCS (0.0-0.0); Neutrophils # (A) 6.98 X 10*3/uL (1.80-7.70); Neutrophils % (A) 68.5 %; Platelet Count 285 X 10*3/uL (140-440); RBC 3.78 X 10*6/uL (4.10-5.20); RDW 13.5 % (11.5-14.5); WBC 10.19 X 10*3/uL (4.50-10.00)
[2021-06-29 12:42] LABS: Glucose,Whole Blood 97 mg/dL (75-99)
[2021-06-29] MEDS: MULTIVITAMINS, THERA 1 EACH TAB PO SCH (13:00)
--- NOTE | 2021-06-29 14:07 | P.PN ---
Subjective Progress Note Date: 06/29/21 Principal diagnosis: Acute left subcapital femoral fracture, status post fall Status post pinning of left femur fracture Mild leukocytosis, most likely reactive secondary to recent surgery 75 year old female who was admitted with recent fall and found to have a subcapital fracture of the left femur and is scheduled for surgery today. Patient is maintained on ceftriaxone for possible urinary tract infection and will continue while awaiting cultures. Patient continues with pain and is also mildly hypertensive with no history of. Possibly pain related. Will continue to monitor closely and await surgical report. Patient denies chest pain or shortness of breath. Patient is afebrile. Weights transferred to skilled rehab once arrangements are made 06/29/2021 Patient is seen and evaluated in room at bedside; discussed with nursing staff; no specific complaints Vital signs are reviewed and stable with temperature of 98.1, pulse 100, respiration 18 and blood pressure 123/76; improved blood pressure control with increase in Norvasc up to 10 mg daily Laboratory review shows CBC of 10.1, hemoglobin of 10.8 and platelet count of 285 Patient continues on IV rocephin and urine cultures are negative although will continue for now as wbc is mildly elevated and low grade temps. wbc elevation most likely reactive, but will repeat labs and monitor closely. Objective - Vital Signs Vital signs: Vital Signs Temp 98.2 F 06/29/21 04:57 Pulse 87 06/29/21 04:57 Resp 16 06/29/21 04:57 BP 184/71 06/29/21 04:57 Pulse Ox 97 06/29/21 04:57 Intake & Output 06/28/21 06/29/21 06/29/21 18:59 06:59 18:59 Intake Total 590 Output Total 1050 Balance -460 Intake: Oral 590 Output: Urine 1050 Other: Voiding Method Indwelling Catheter Indwelling Catheter - Exam GENERAL: The patient is alert and oriented, well developed, well nourished HEENT: Pupils are round and equally reacting to light. EOMI. does have scleral icterus. No conjunctival pallor. Normocephalic, atraumatic. No pharyngeal erythema. No thyromegaly. CARDIOVASCULAR: S1 and S2 muffled PULMONARY: diminished breath sounds bilaterally with no wheezing or rhonchi noted. ABDOMEN: soft. non-tender. Non-distended, normoactive bowel sounds. No palpable organomegaly. MUSCULOSKELETAL: No joint swelling or deformity. EXTREMITIES: No cyanosis, clubbing, or pedal edema. left surgical site is dry and intact. guarding of the left hip noted on exam NEUROLOGICAL: Gross neurological examination did not reveal any focal deficits. diffusely weak SKIN: No rashes. - Labs CBC & Chem 7: 06/29/21 07:30 06/27/21 05:40 Labs: Abnormal Lab Results - Last 24 Hours (Table) 06/28/21 06/28/21 06/28/21 Range/Units 11:43 17:18 20:02 POC Glucose (mg/dL) 118 H 156 H 140 H (75-99) mg/dL 06/29/21 Range/Units 07:16 POC Glucose (mg/dL) 68 L (75-99) mg/dL Microbiology - Last 24 Hours (Table) 06/25/21 11:27 Blood Culture - Preliminary Blood No Growth after 72 hours Assessment and Plan Assessment: Acute left subcapital femoral fracture, status post fall status post pinning of left femur fracture mild leukocytosis, most likely reactive secondary to recent surgery hypertension, possibly related to pain Urinary tract infection Diabetes mellitus, type 2 History of pneumonia Full code Plan: Recommend to continue with current medications and management. Patient underwent surgery with orthopedics yesterday on the left femur. Patient continues on IV rocephin and urine cultures are negative although will continue for now as wbc is mildly elevated and low grade temps. wbc elevation most likely reactive, but will repeat labs and monitor closely. . Patient continues to be hypertensive and could be related to the pain but have added norvasc. Will continue to monitor closely and also recommend to continue monitoring accuchecks achs and sliding scale. Due to multiple complex medical issues, prognosis is guarded. Will continue to follow along with orthopedics. Thank you for this consultation.
[2021-06-29 17:18] LABS: Glucose,Whole Blood 121 mg/dL (75-99)
[2021-06-29] MEDS: GLIMEPIRIDE 4 MG TAB PO SCH (17:43)
[2021-06-29 20:01] LABS: Glucose,Whole Blood 133 mg/dL (75-99)
[2021-06-29] MEDS: SENNOSIDES-DOCUSATE SODIUM 1 EACH TAB PO SCH (20:39)
[2021-06-30] MEDS: HEPARIN SODIUM,PORCINE/PF 5,000 UNIT/0.5 ML SYRINGE SQ SCH ×2 (00:32→07:06)
[2021-06-30 05:01] VITALS: RESP 18
[2021-06-30] MEDS: HYDROcodone/APAP 7.5-325MG 1 EACH TAB PO PRN ×2 (05:11→12:15)
[2021-06-30 06:56] LABS: Glucose,Whole Blood 123 mg/dL (75-99)
[2021-06-30] MEDS: INSULIN ASPART (NovoLOG) 100 UNIT/ML VIAL SQ SCH ×2 (06:59→12:15)
[2021-06-30] MEDS: metFORMIN 500 MG TAB PO SCH (07:06)
[2021-06-30] MEDS: SERTRALINE 100 MG TAB PO SCH (07:06)
[2021-06-30] MEDS: diazePAM 5 MG TAB PO PRN (07:06)
[2021-06-30] MEDS: ASPIRIN 81 MG PO SCH (07:06)
[2021-06-30] MEDS: amLODIPine 10 MG TAB PO SCH (07:06)
[2021-06-30 10:16] LABS: Basophils # (A) 0.05 X 10*3/uL (0.00-0.10); Basophils % (A) 0.5 %; Eosinophils # (A) 0.22 X 10*3/uL (0.04-0.35); Eosinophils % (A) 2.1 %; HCT 35.8 % (37.2-46.3); Lymphocytes # (A) 1.72 X 10*3/uL (0.90-5.00); Lymphocytes % (A) 16.1 %; MCH 28.6 pg (27.0-32.0); MCHC 30.7 g/dL (32.0-37.0); Mean Platelet Volume 10.2 fL (9.5-12.2); Monocytes # (A) 0.93 X 10*3/uL (0.20-1.00); Monocytes % (A) 8.7 %; Neutrophils # (A) 7.67 X 10*3/uL (1.80-7.70); Neutrophils % (A) 71.8 %; Platelet Count 336 X 10*3/uL (140-440); RBC 3.85 X 10*6/uL (4.10-5.20); RDW 13.3 % (11.5-14.5); WBC 10.68 X 10*3/uL (4.50-10.00)
[2021-06-30 10:17] LABS: Immature Grans, Automated 0.8 %; NRBC Per 100 WBC 0 /100 WBCS (0.0-0.0)
[2021-06-30 11:10] LABS: Glucose,Whole Blood 162 mg/dL (75-99)
[2021-06-30 11:40] VITALS: BP 158/88; PULSE 106; TEMP 98.1
[2021-06-30] MEDS: MULTIVITAMINS, THERA 1 EACH TAB PO SCH (12:15)
--- NOTE | 2021-06-30 13:01 | P.DS ---
Providers Date of admission: 06/24/21 20:11 Expected date of discharge: 06/30/21 Attending physician: Max Sanches Consults: 06/24/21 20:12 Consult Physician Routine Consulting Provider: Rajni Givens Consult Reason/Comments: medical management Do you want consulting provider notified?: Yes Primary care physician: Wily Kamara - Discharge Diagnosis(es) (1) Femur fracture, left Patient was admitted to the OR on 06/26/21 to undergo a closed reduction percutaneous pinning fixation of legft hip fracture. She had suffered a fall resulting in hip fracture as an outpatient and desired to proceed with elective surgery after given informed consent. She underwent the above procedure which he tolerated well without complication. Postoperative hospital course has remained without complication. On day of discharge she is afebrile, vital signs stable, labs within acceptable ranges, tolerating by mouth meds and diet, voiding without difficulty, positive flatus, denies abdominal pain or calf pain, pain is controlled on oral pain medication and has no new complaints. Wound is benign, neurovascular status is intact, calf is soft and nontender, abdomen soft and nontender. Review of systems is negative for numbness, tingling, fever, chills, chest pain, shortness of breath, nausea, vomiting, dizziness, headaches, slurred speech or other. Current Visit: Yes Status: Acute Priority: Medium Procedures: Closed reduction percutaneous pinning left femur fracture Patient Condition at Discharge: Good Plan - Discharge Summary New Discharge Prescriptions: New Docusate [Colace] 100 mg PO BID #60 capsule HYDROcodone/APAP 5-325MG [[place] 5-325] 1 tab PO Q4HR PRN #42 tab PRN Reason: Pain Aspirin [Adult Low Dose Aspirin EC] 81 mg PO BID #60 tab No Action Glimepiride [Amaryl] 4 mg PO W/SUPPER Sertraline HCl [Zoloft] 100 mg PO DAILY metFORMIN HCL [Glucophage] 1,000 mg PO BID Calcium Carbonate [Tums] 500 mg PO BID traMADol HCL 50 mg PO TID PRN PRN Reason: Pain Discharge Medication List Glimepiride [Amaryl] 4 mg PO W/SUPPER 05/06/18 [History] Sertraline HCl [Zoloft] 100 mg PO DAILY 07/21/20 [History] Calcium Carbonate [Tums] 500 mg PO BID 06/24/21 [History] metFORMIN HCL [Glucophage] 1,000 mg PO BID 06/24/21 [History] traMADol HCL 50 mg PO TID PRN 06/24/21 [History] Aspirin [Adult Low Dose Aspirin EC] 81 mg PO BID #60 tab 06/27/21 [Rx] Docusate [Colace] 100 mg PO BID #60 capsule 06/27/21 [Rx] HYDROcodone/APAP 5-325MG [Salem 5-325] 1 tab PO Q4HR PRN #42 tab 06/27/21 [Rx] Follow up Appointment(s)/Referral(s): Wily Kamara MD [Primary Care Provider] - 1-2 days Max Sanches MD [STAFF PHYSICIAN] - 10 Days Patient Instructions/Handouts: Leg Fracture (ED) Activity/Diet/Wound Care/Special Instructions: touchdown weightbearing May shower after 3 days if no bleeding Keep wound clean and dry Take meds as directed alida out at POD #10- 07/06/21 F/U with Dr. Sanches in office Discharge Disposition: TRANSFER TO SNF/ECF
--- NOTE | 2021-06-30 14:03 | P.PN ---
Subjective Progress Note Date: 06/30/21 06/26/2021 This is a 75 year old female who was admitted with recent fall and found to have a subcapital fracture of the left femur and is scheduled for surgery today. Patient is maintained on ceftriaxone for possible urinary tract infection and will continue while awaiting cultures. Patient continues with pain and is also mildly hypertensive with no history of. Possibly pain related. Will continue to monitor closely and await surgical report. Patient denies chest pain or shortness of breath. Patient is afebrile. 06/27/2021 Patient is seen in follow up this morning and is status post surgical repair of the left femur fracture with orthopedics as primary. Patient continues to have severe pain and is very guarding of the left hip on exam. Surgical dressing is dry and intact. Patient denies any shortness of breath or chest pain. Patient was maintained on normal saline and is eating and drinking and tolerating diet and will discontinue. Patient continues to be hypertensive and started on nor vasc and will increase to 10mg daily. Patient reports to passing gas. Patient with mild low grade temp. Patient maintained on IV rocephin and will continue for now. Urine cultures are negative. 06/29/2021 Patient is seen and evaluated in room at bedside; discussed with nursing staff; no specific complaints Vital signs are reviewed and stable with temperature of 98.1, pulse 100, respiration 18 and blood pressure 123/76; improved blood pressure control with increase in Norvasc up to 10 mg daily Laboratory review shows CBC of 10.1, hemoglobin of 10.8 and platelet count of 285 Patient continues on IV rocephin and urine cultures are negative although will continue for now as wbc is mildly elevated and low grade temps. wbc elevation most likely reactive, but will repeat labs and monitor closely. 06/30/2021 Patient is seen in follow-up this morning currently sitting up in the chair continues to with extreme weakness and left side hip pain and continues to be closely monitored. Orthopedics plans on discharging to [facility] today. Patient was started on Norvasc for hospitalization and recommend to continue with close monitoring of blood pressure every shift and will continue on Norvasc 10 mg daily. Patient also continued on IV ceftriaxone and urine cultures are negative and will not require antibiotics on discharge. WBC 10.68 today and recommend repeat labs in 2-3 days. Recommend continue Accu-Cheks before meals and at bedtime and sliding scale in the outpatient setting. Review of systems: Constitutional: No reports of fatigue, fever, or chills Cardiovascular: No reports of chest pain or palpitations Respiratory: No reports of shortness of breath or cough GI: No reports of nausea, vomiting, or diarrhea : No reports of dysuria or retention Neurovascular: reports of generalized weakness and left hip pain All medications have been reviewed Active Medications Acetaminophen (Acetaminophen Tab 325 Mg Tab) 650 mg PO Q6HR PRN PRN Reason: Mild Pain or Fever > 100.5 Acetaminophen/Codeine Phosphate (Acetaminophen-Codeine 300-30mg Tab) 1 each PO Q3HR PRN PRN Reason: Pain Scale 1 to 5 Last Admin: 06/28/21 17:50 Dose: 1 each Documented by: Hydrocodone Bitart/Acetaminophen (Hydrocodone/Apap 7.5-325mg 1 Each Tab) 1 each PO Q4H PRN PRN Reason: Pain Scale 1 to 5 Last Admin: 06/30/21 12:15 Dose: 1 each Documented by: Hydrocodone Bitart/Acetaminophen (Hydrocodone/Apap 7.5-325mg 1 Each Tab) 2 each PO Q6H PRN PRN Reason: Pain Scale 6 to 10 Amlodipine Besylate (Amlodipine 10 Mg Tab) 10 mg PO DAILY [facility] Last Admin: 06/30/21 07:06 Dose: 10 mg Documented by: Aspirin (Aspirin 81 Mg) 81 mg PO BID [facility] Last Admin: 06/30/21 07:06 Dose: 81 mg Documented by: Diazepam (Diazepam 5 Mg Tab) 5 mg PO QID PRN PRN Reason: Spasms Last Admin: 06/30/21 07:06 Dose: 5 mg Documented by: Glimepiride (Glimepiride 4 Mg Tab) 4 mg PO W/SUPPER [facility] Last Admin: 06/29/21 17:43 Dose: 4 mg Documented by: Heparin Sodium (Porcine) (Heparin Sodium,Porcine/Pf 5,000 Unit/0.5 Ml Syringe) 5,000 unit SQ Q8HR [facility] Last Admin: 06/30/21 07:06 Dose: 5,000 unit Documented by: Hydromorphone HCl (Hydromorphone 1 Mg/Ml 1 Ml Syringe) 0.5 mg IVP Q3HR PRN PRN Reason: Severe Pain Last Admin: 06/27/21 21:10 Dose: 0.5 mg Documented by: Hydromorphone HCl (Hydromorphone 1 Mg/Ml 1 Ml Syringe) 0.2 mg IVP Q3HR PRN PRN Reason: Pain Scale 4 to 6 Hydromorphone HCl (Hydromorphone 1 Mg/Ml 1 Ml Syringe) 0.125 mg IVP Q3HR PRN PRN Reason: Pain Scale 1 to 3 Hydromorphone HCl (Hydromorphone 1 Mg/Ml 1 Ml Syringe) 0.5 mg IVP Q3HR PRN PRN Reason: Pain Scale 7 to 10 Ceftriaxone Sodium 1 gm/ (Sodium Chloride) 50 mls @ 100 mls/hr IVPB Q24HR [facility] Last Admin: 06/30/21 07:06 Dose: 100 mls/hr Documented by: Insulin Aspart (Insulin Aspart (Novolog) 100 Unit/Ml Vial) 0 unit SQ [facility]; Protocol Last Admin: 06/30/21 12:15 Dose: 1 unit Documented by: Magnesium Hydroxide (Magnesium Hydroxide 2,400 Mg/10 Ml Cup) 2,400 mg PO DAILY PRN PRN Reason: Constipation Metformin HCl (Metformin 500 Mg Tab) 1,000 mg PO BID [facility] Last Admin: 06/30/21 07:06 Dose: 1,000 mg Documented by: Multivitamins (Multivitamins, Thera 1 Each Tab) 1 each PO DAILY@1200 [facility] Last Admin: 06/30/21 12:15 Dose: 1 each Documented by: Naloxone HCl (Naloxone 0.4 Mg/Ml 1 Ml Vial) 0.2 mg IV Q2M PRN PRN Reason: Opioid Reversal Ondansetron HCl (Ondansetron 4 Mg/2 Ml Vial) 4 mg IVP Q8HR PRN PRN Reason: Nausea And Vomiting Last Admin: 06/26/21 03:06 Dose: 4 mg Documented by: Senna/Docusate Sodium (Sennosides-Docusate Sodium 1 Each Tab) 2 each PO [facility] Last Admin: 06/29/21 20:39 Dose: 2 each Documented by: Sertraline HCl (Sertraline 100 Mg Tab) 100 mg PO DAILY [facility] Last Admin: 06/30/21 07:06 Dose: 100 mg Documented by: Tramadol HCl (Tramadol 50 Mg Tab) 50 mg PO Q6HR PRN PRN Reason: Pain Scale 1 to 5 Last Admin: 06/28/21 08:11 Dose: 50 mg Documented by: PHYSICAL EXAMINATION: GENERAL: The patient is alert and oriented, well developed, well nourished HEENT: Pupils are round and equally reacting to light. EOMI. does have scleral icterus. No conjunctival pallor. Normocephalic, atraumatic. No pharyngeal erythema. No thyromegaly. CARDIOVASCULAR: S1 and S2 muffled PULMONARY: diminished breath sounds bilaterally with no wheezing or rhonchi noted. ABDOMEN: soft. non-tender. Non-distended, normoactive bowel sounds. No palpable organomegaly. MUSCULOSKELETAL: No joint swelling or deformity. EXTREMITIES: No cyanosis, clubbing, or pedal edema. left surgical site is dry and intact. guarding of the left hip noted on exam NEUROLOGICAL: Gross neurological examination did not reveal any focal deficits. diffusely weak SKIN: No rashes. Assessment: Acute left subcapital femoral fracture, status post fall status post pinning of left femur fracture mild leukocytosis, most likely reactive secondary to recent surgery hypertension, possibly related to pain Urinary tract infection, present on admission Diabetes mellitus, type 2 History of pneumonia Full code Plan: Recommend to continue with current medications and management. Patient underwent surgery with orthopedics on the left femur. Patient continues on IV rocephin and urine cultures are negative and has received adequate amount of IV antibiotics and will not require antibiotics on discharge. Patient was started on Norvasc 10 mg for hypertension with no history and recommend continue with this as blood pressures have improved and also recommend outpatient follow-up with primary care provider to discuss medication changes. Will continue to monitor closely and also recommend to continue monitoring accuchecks achs and sliding scale. Due to multiple complex medical issues, prognosis is guarded. Will continue to follow along with orthopedics. Thank you for this consultation. Patient is being discharged to [facility] today. The impression and plan of care has been dictated by Kelly Gannon, nurse practitioner as directed. MD Faustino I have performed a history and examination and MDM of this patient, discussed the same with the dictator, and agree with the dictator's assessment and plan as written ,documented as a scribe. Based on total visit time, I have performed more than 50% of the visit. Any additional findings or plans will be noted. Objective - Vital Signs Vital signs: Vital Signs Temp 99.5 F 06/30/21 05:00 Pulse 64 06/30/21 05:00 Resp 18 06/30/21 07:11 BP 148/69 06/30/21 05:00 Pulse Ox 94 L 06/30/21 05:00 Intake & Output 06/29/21 06/30/21 06/30/21 18:59 06:59 18:59 Intake Total 590 Output Total 950 300 Balance -950 290 Intake: Oral 590 Output: Urine 950 300 Other: Voiding Method Indwelling Catheter Indwelling Catheter Indwelling Catheter # Bowel Movements 1 1 - Labs CBC & Chem 7: 06/30/21 05:26 06/27/21 05:40 Labs: Abnormal Lab Results - Last 24 Hours (Table) 06/29/21 06/29/21 06/29/21 Range/Units 07:30 17:15 20:00 WBC 10.19 H (4.50-10.00) X 10*3/uL RBC 3.78 L (4.10-5.20) X 10*6/uL Hgb 10.8 L (12.0-15.0) g/dL Hct 34.7 L (37.2-46.3) % MCHC 31.1 L (32.0-37.0) g/dL Immature Gran # 0.10 H (0.00-0.04) X 10*3/uL POC Glucose (mg/dL) 121 H 133 H (75-99) mg/dL 06/30/21 Range/Units 06:54 WBC (4.50-10.00) X 10*3/uL RBC (4.10-5.20) X 10*6/uL Hgb (12.0-15.0) g/dL Hct (37.2-46.3) % MCHC (32.0-37.0) g/dL Immature Gran # (0.00-0.04) X 10*3/uL POC Glucose (mg/dL) 123 H (75-99) mg/dL Microbiology - Last 24 Hours (Table) 06/25/21 11:27 Blood Culture - Preliminary Blood No Growth after 96 hours
== END 2021-06-30 15:35 | DRG 481 ==
LOC: EC 17:44 → 4SSUR 20:11 → 5NMEDONC 21:04
PROVIDERS: ADMIT Orthopaedic Surgery Sports Medicine; ATTEND Orthopaedic Surgery Sports Medicine
PROC: 0QS734Z Reposition Left Upper Femur with Internal Fixation Device, Percutaneous Approach (ICD-10-PCS; principal; 2021-06-26 07:30)
DX: S72.012A Unspecified intracapsular fracture of left femur, initial encounter for closed fracture (principal); N39.0 Urinary tract infection, site not specified; W10.9XXA Fall (on) (from) unspecified stairs and steps, initial encounter; Y92.009 Unspecified place in unspecified non-institutional (private) residence as the place of occurrence of the external cause; M54.31 Sciatica, right side; Z20.822 Contact with and (suspected) exposure to COVID-19; F40.240 Claustrophobia; M19.90 Unspecified osteoarthritis, unspecified site; E11.9 Type 2 diabetes mellitus without complications; G43.909 Migraine, unspecified, not intractable, without status migrainosus; H91.92 Unspecified hearing loss, left ear; I10 Essential (primary) hypertension; Z79.84 Long term (current) use of oral hypoglycemic drugs; Z79.899 Other long term (current) drug therapy; Z80.3 Family history of malignant neoplasm of breast; Z82.49 Family history of ischemic heart disease and other diseases of the circulatory system; Z85.828 Personal history of other malignant neoplasm of skin; Z86.73 Personal history of transient ischemic attack (TIA), and cerebral infarction without residual deficits; Z87.01 Personal history of pneumonia (recurrent); Z87.891 Personal history of nicotine dependence; Z90.710 Acquired absence of both cervix and uterus; Z98.51 Tubal ligation status; Z98.890 Other specified postprocedural states; Z88.2 Allergy status to sulfonamides; Z91.048 Other nonmedicinal substance allergy status; Z80.9 Family history of malignant neoplasm, unspecified
CPT/HCPCS: 71045; 72100; 73501; 73502; 80048; 80053; 81001; 85025; 85610; 85730; 86850; 86900; 86901; 87040; 87086; 87635; 93005; 96374; 99285

== ENCOUNTER → 2022-09-17 | Outpatient (CLI) | payer MEDICARE, OTHER ==
--- NOTE | 2022-09-17 15:39 | CT ---
EXAMINATION TYPE: CT sinus wo con DATE OF EXAM: 09/17/2022 HISTORY: Chronic sinusitis- more congestion and drainage at night. COMPARISON: Prior sinus CT November 15, 2020 CT DLP: 440.7 mGycm. Automated Exposure Control for Dose Reduction was Utilized. TECHNIQUE: CT scan of the sinuses is performed without contrast, axial images are obtained, coronal r eformatted images are also reviewed. FINDINGS: There is stable 2.0 cm mucous retention cyst or polyp in the inferior left maxillary sinus. Remainder of the paranasal sinuses remain clear without abnormal opacification. Hypoplastic right f rontal sinus is redemonstrated. The ostiomeatal complex remains patent bilaterally on the coronal garland ges. Visualized portion of mastoid air cells show no abnormal opacification. Bilateral aphakia is redemons trated. IMPRESSION: Chronic left maxillary sinus disease redemonstrated. No acute sinusitis. No significant change from prior.
== END | disposition home or self-care (01) ==
LOC: RADCTMAIN 15:03
PROVIDERS: ATTEND Otolaryngology
DX: J32.0 Chronic maxillary sinusitis (principal)
CPT/HCPCS: 70486

== ENCOUNTER → 2022-12-02 | Outpatient (CLI) | payer MEDICARE, OTHER ==
[2022-12-03 04:19] LABS: BUN/Creat Ratio 16.89 Ratio (12.00-20.00); Blood Urea Nitrogen 15.2 mg/dL (9.0-27.0); Calcium 9.1 mg/dL (8.7-10.3); Carbon Dioxide 23.6 mmol/L (21.6-31.8); Chloride 108 mmol/L (96-109); Glucose 121 mg/dL (70-110); Potassium 3.9 mmol/L (3.5-5.5); Sodium 144 mmol/L (135-145)
[2022-12-03 04:25] LABS: Basophils # (A) 0.05 X 10*3/uL (0.00-0.10); Basophils % (A) 0.7 %; Eosinophils % (A) 2.7 %; HCT 34.4 % (37.2-46.3); HGB 10.8 d/dL (12.0-15.0); Lymphocytes # (A) 2.17 X 10*3/uL (0.90-5.00); Lymphocytes % (A) 28.8 %; MCH 28.1 pg (27.0-32.0); MCHC 31.4 d/dL (32.0-37.0); MCV 89.4 FL (80.0-97.0); Monocytes # (A) 0.59 X 10*3/uL (0.20-1.00); Monocytes % (A) 7.8 %; NRBC Per 100 WBC 0 X 10*3/uL (0.00-0.01); Neutrophils % (A) 58.4 %; Platelet Count 301 X 10*3/uL (140-440); RBC 3.85 X 10*6/uL (4.10-5.20); RDW 16.2 % (11.5-14.5); WBC 7.53 X 10*3/uL (4.50-10.00)
== END | disposition home or self-care (01) ==
LOC: LABWHC1 15:52
PROVIDERS: ATTEND Nurse Practitioner Family
DX: D72.829 Elevated white blood cell count, unspecified (principal); K57.92 Diverticulitis of intestine, part unspecified, without perforation or abscess without bleeding
CPT/HCPCS: 36415; 80048; 85025

== ENCOUNTER 2023-01-16 18:51 | Emergency (ER) | payer MEDICARE, OTHER ==
[2023-01-16 19:04] VITALS: TEMP 98.5
[2023-01-16] MEDS ORDERED: KETOROLAC 15 MG/ML 1 ML VIAL IVP STA (19:09)
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
[2023-01-16 19:29] LABS: Basophils % (A) 0 %; Eosinophils # (A) 0.3 k/uL (0-0.7); Eosinophils % (A) 3 %; HCT 38.9 % (34.0-46.0); HGB 12.3 gm/dL (11.4-16.0); Hypochromasia Slight; Lymphocytes # (A) 2.2 k/uL (1.0-4.8); Lymphocytes % (A) 24 %; MCH 28.6 pg (25.0-35.0); MCHC 31.6 g/dL (31.0-37.0); MCV 90.6 fL (80.0-100.0); Mean Platelet Volume 8.5; Monocytes # (A) 0.6 k/uL (0-1.0); Monocytes % (A) 7 %; Neutrophils # (A) 5.9 k/uL (1.3-7.7); Neutrophils % (A) 64 %; Platelet Count 247 k/uL (150-450); RDW 15.5 % (11.5-15.5); WBC 9.2 k/uL (3.8-10.6)
[2023-01-16 20:14] LABS: ALT 17 U/L (4-34); AST 30 U/L (14-36); African American GFR (CKD) 61 (>60 ml/min/1.73 sqM); Albumin 3.9 g/dL (3.5-5.0); Alkaline Phosphatase 118 U/L (38-126); Anion Gap 10 mmol/L; Blood Urea Nitrogen 29 mg/dL (7-17); Calcium 9.6 mg/dL (8.4-10.2); Carbon Dioxide 22 mmol/L (22-30); Chloride 105 mmol/L (98-107); Glucose 111 mg/dL (74-99); Lipase 280 U/L (23-300); Non-African American GFR(CKD) 53 (>60 ml/min/1.73 sqM); Potassium 4.8 mmol/L (3.5-5.1); Sodium 137 mmol/L (137-145); Total Bilirubin 0.4 mg/dL (0.2-1.3); Total Protein 6.7 g/dL (6.3-8.2)
[2023-01-16 20:41] VITALS: RESP 16
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
[2023-01-16] MEDS ORDERED: HYDROcodone/APAP 7.5-325MG 1 EACH TAB PO ONE (22:18)
[2023-01-16 23:09] VITALS: BP 160/95; PULSE 85
== END 2023-01-16 23:08 | disposition home or self-care (01) ==
LOC: EC 18:51
DX: S62.614A Displaced fracture of proximal phalanx of right ring finger, initial encounter for closed fracture (principal); R07.9 Chest pain, unspecified; M25.562 Pain in left knee; E11.9 Type 2 diabetes mellitus without complications; M19.90 Unspecified osteoarthritis, unspecified site; Z86.73 Personal history of transient ischemic attack (TIA), and cerebral infarction without residual deficits; Z87.891 Personal history of nicotine dependence; Z88.2 Allergy status to sulfonamides; Z88.8 Allergy status to other drugs, medicaments and biological substances; Z79.84 Long term (current) use of oral hypoglycemic drugs; Z79.899 Other long term (current) drug therapy; V49.40XA Driver injured in collision with unspecified motor vehicles in traffic accident, initial encounter
CPT/HCPCS: 36415; 93005; 80053; 83690; 85025; 73130; 73564; 72125; 70450; 71260; 74177; 99285; 96374; 29125; J1885; Q9967

== ENCOUNTER 2023-05-07 19:11 | Emergency (ER) | payer MEDICARE, OTHER ==
--- NOTE | 2023-05-07 19:38 | ED ---
General Adult HPI - General Source: patient Mode of arrival: ambulatory Limitations: no limitations <Breanna Crow - Last Filed: 05/07/23 19:37> - General Source: patient, RN notes reviewed Mode of arrival: ambulatory Limitations: no limitations <Asha Rudolph - Last Filed: 05/08/23 19:21> - General Stated complaint: Fall-Right wrist/toe injury Time Seen by Provider: 05/07/23 19:37 - History of Present Illness Initial comments: 77-year-old female presenting with chief complaint of fall. Patient is complaining of pain to the right wrist and right big toe. Unsure she hit her head. No loss of consciousness or blood thinners. (Breanna Crow) 77-year-old female presents to the emergency department for right wrist pain and right big toe pain following a fall. She states that she did not lose consciousness. She does not believe that she her head. She is not on blood thinners. Patient states that she has pain to the right wrist with extension of the hand. Patient is able to ambulate. (Asha Rudolph) - Related Data Home Medications Medication Instructions Recorded Confirmed Glimepiride [Amaryl] 4 mg PO W/SUPPER 05/06/18 01/16/23 Sertraline HCl [Zoloft] 100 mg PO DAILY 07/21/20 01/16/23 metFORMIN HCL [Glucophage] 2,000 mg PO HS 06/24/21 01/16/23 Acetaminophen Tab [Tylenol] 975 mg PO DAILY 11/27/22 01/16/23 Atorvastatin [Lipitor] 20 mg PO HS 11/27/22 01/16/23 Fish Oil/Dha/Epa [Fish Oil 1,200 1 cap PO HS 11/27/22 01/16/23 mg Fish Oil] Fluticasone Propionate [Flonase 1 spr EA NOSTRIL BID 11/27/22 01/16/23 Allergy Relief] Multivit-Min/FA/Lycopen/Lutein 1 tab PO HS 11/27/22 01/16/23 [Centrum Silver Tablet] Pioglitazone [Actos] 45 mg PO HS 11/27/22 01/16/23 Tolterodine ER [Detrol LA] 4 mg PO HS 11/27/22 01/16/23 Previous Rx's Medication Instructions Recorded HYDROcodone/APAP 7.5-325MG [[place] 1 tab PO Q6HR PRN 3 Days #12 tab 01/16/23 7.5-325] Allergies Allergy/AdvReac Type Severity Reaction Status Date / Time Sulfa (Sulfonamide AdvReac Intermediate Nausea Verified 05/07/23 19:36 Antibiotics) mold AdvReac Unknown throat Verified 05/07/23 19:36 irritation prednisone AdvReac anxious, Verified 05/07/23 19:36 jittery smoke AdvReac Unknown throat Uncoded 05/07/23 19:36 irritation Review of Systems ROS Other: All systems not noted in ROS Statement are negative. <Breanna Crow - Last Filed: 05/07/23 19:37> ROS Other: All systems not noted in ROS Statement are negative. <Asha Rudolph - Last Filed: 05/08/23 19:21> ROS Statement: Those systems with pertinent positive or pertinent negative responses have been documented in the HPI. Past Medical History Past Medical History: Cancer, CVA/TIA, Diabetes Mellitus, Hearing Disorder / Deafness, Osteoarthritis (OA), Pneumonia Additional Past Medical History / Comment(s): Basal Cell Skin Cancer removed from left posterior shoulder , migraines, December 1997 TIA, sciatica right leg, Hospitalized in July 2020 for diverticulitis., deaf left ear with cochlear implant History of Any Multi-Drug Resistant Organisms: None Reported Past Surgical History: Hysterectomy, Tubal Ligation Additional Past Surgical History / Comment(s): basal cell cancer removed left posterior shoulder jun 2021., lasik eye sx, cochlear implant lt, deviated septum surgery Past Anesthesia/Blood Transfusion Reactions: No Reported Reaction Additional Past Anesthesia/Blood Transfusion Reaction / Comment(s): mild clausterphobia Past Psychological History: No Psychological Hx Reported Smoking Status: Former smoker Past Alcohol Use History: Rare Past Drug Use History: None Reported - Past Family History Mother Family Medical History: Cancer, Coronary Artery Disease (CAD) Additional Family Medical History / Comment(s): breast cancer. triple vessel cabg- age 95 Father Family Medical History: Cancer Additional Family Medical History / Comment(s): age 62 <Breanna Crow - Last Filed: 05/07/23 19:37> General Exam Limitations: no limitations <Breanna Crow - Last Filed: 05/07/23 19:37> Limitations: no limitations General appearance: alert, in no apparent distress Head exam: Present: atraumatic, normocephalic, normal inspection Eye exam: Present: normal appearance, PERRL, EOMI. Absent: scleral icterus, conjunctival injection, periorbital swelling ENT exam: Present: normal exam, mucous membranes moist Neck exam: Present: normal inspection. Absent: tenderness, meningismus, lymphadenopathy Respiratory exam: Present: normal lung sounds bilaterally. Absent: respiratory distress, wheezes, rales, rhonchi, stridor Cardiovascular Exam: Present: regular rate, normal rhythm, normal heart sounds. Absent: systolic murmur, diastolic murmur, rubs, gallop, clicks GI/Abdominal exam: Present: soft, normal bowel sounds. Absent: distended, tenderness, guarding, rebound, rigid Extremities exam: Present: full ROM, tenderness, normal capillary refill, other (radial, DP, PT pulses 2+, no anatomical snuffbox tenderness) Back exam: Present: normal inspection Neurological exam: Present: alert, oriented X3 Psychiatric exam: Present: normal affect, normal mood Skin exam: Present: warm, dry, intact, normal color. Absent: rash <Asha Rudolph - Last Filed: 05/08/23 19:21> - General Exam Comments Initial Comments: Visual Physical Exam Vital signs reviewed General: Well-appearing, nontoxic, no acute distress. Head: Normocephalic, atraumatic Eyes: PERRLA, EOMI ENT: Airway patent Chest: Nonlabored breathing Skin: No visual rash, normal skin tone Neuro: Alert and oriented 3 Musculoskeletal: No gross abnormalities (Breanna Crow) Course Vital Signs 05/07/23 05/07/23 19:34 21:30 Temperature 98.5 F Pulse Rate 96 88 Respiratory 18 16 Rate Blood Pressure 144/77 143/86 O2 Sat by Pulse 96 97 Oximetry Medical Decision Making <Asha Rudolph - Last Filed: 05/08/23 19:21> - Medical Decision Making Was pt. sent in by a medical professional or institution (, PA, SAXOPHONE ASSEMBLER, urgent care, hospital, or fdc...) When possible be specific @ -No Did you speak to anyone other than the patient for history (EMS, parent, family, police, friend...)? What history was obtained from this source @ -No Did you review nursing and triage notes (agree or disagree)? Why? @ -I reviewed and agree with nursing and triage notes Were old charts reviewed (outside hosp., previous admission, EMS record, old E KG, old radiological studies, urgent care reports/EKG's, fdc records)? Report findings @ -No old charts were reviewed Differential Diagnosis (chest pain, altered mental status, abdominal pain women, abdominal pain men, vaginal bleeding, weakness, fever, dyspnea, syncope, headache, dizziness, GI bleed, back pain, seizure, CVA, palpatations, mental hea lth, musculoskeletal)? @ -Fall, head injury, wrist fracture, foot fracture, this list is not all- inclusive EKG interpreted by me (3pts min.). @ -none X-rays interpreted by me (1pt min.). @ -X Ray of the right wrist shows no acute fracture, x-ray of the right foot shows no acute fracture CT interpreted by me (1pt min.). @ -CT brain and c spine shows no acute intracranial hemorrhage, no acute fracture U/S interpreted by me (1pt. min.). @ -None done What testing was considered but not performed or refused? (CT, X-rays, U/S, labs)? Why? @ -None What meds were considered but not given or refused? Why? @ -None Did you discuss the management of the patient with other professionals (professionals i.e. , PA, SAXOPHONE ASSEMBLER, lab, RT, psych nurse, social security assessor, slubber operator, teacher, ordnance officer, case resource manager)? Give summary @ -No Was smoking cessation discussed for >3mins.? @ -No Was critical care preformed (if so, how long)? @ -No Were there social determinants of health that impacted care today? How? (Homelessness, low income, unemployed, alcoholism, drug addiction, transportation, low edu. Level, literacy, decrease access to med. care, fdc, rehab)? @ -No Was there de-escalation of care discussed even if they declined (Discuss DNR or withdrawal of care, Hospice)? DNR status @ -No What co-morbidities impacted this encounter? (DM, HTN, Smoking, COPD, CAD, Cancer, CVA, ARF, Chemo, Hep., AIDS, mental health diagnosis, sleep apnea, morbid obesity)? @ -None Was patient admitted / discharged? Hospital course, mention meds given and route, prescriptions, significant lab abnormalities, going to OR and other pertinent info. @ -Discharged. Patient presented to the emergency department for fall. Patient expresses that she is experiencing right wrist and right first toe pain. X-rays obtained showed no acute fracture. CT brain and C-spine shows no acute intracranial hemorrhage or acute fracture of the C-spine. Patient given a dose of Toradol Tylenol in the emergency department. Patient will be discharged home with follow-up to her primary care provider. Patient obtaining agreeable with plan. Patient stable for discharge. Case discussed with Dr. Courtney Undiagnosed new problem with uncertain prognosis? @ -No Drug Therapy requiring intensive monitoring for toxicity (Heparin, Nitro, Insulin, Cardizem)? @ -No Were any procedures done? @ -No Diagnosis/symptom? @ -fall Acute, or Chronic, or Acute on Chronic? @ -acute Uncomplicated (without systemic symptoms) or Complicated (systemic symptoms)? @ -uncomplicated Side effects of treatment? @ -No Exacerbation, Progression, or Severe Exacerbation? @ -No Poses a threat to life or bodily function? How? (Chest pain, [place], [place], pneumonia, PE, COPD, DKA, ARF, appy, cholecystitis, CVA, Diverticulitis, Homicidal, Suicidal, threat to staff... and all critical care pts) @ -No (Asha Rudolph) Disposition <Breanna Crow - Last Filed: 05/07/23 19:37> Is patient prescribed a controlled substance at d/c from ED?: No <Asha Rudolph - Last Filed: 05/08/23 19:21> Clinical Impression: Fall Disposition: HOME SELF-CARE Condition: Stable Instructions (If sedation given, give patient instructions): Wrist Injury (ED), Hand Sprain (ED) Additional Instructions: Please follow up with your primary care provider. Return to the emergency department for new or worsening symptoms. Referrals: Wily Kamara MD [Primary Care Provider] - 1-2 days
[2023-05-07 19:39] VITALS: TEMP 98.5
--- NOTE | 2023-05-07 20:17 | XR ---
EXAMINATION TYPE: XR wrist complete RT DATE OF EXAM: 05/07/2023 8:05 PM CLINICAL INDICATION:Female, 77 years old with history of fall; [facility] COMPARISON: 01/16/2023 TECHNIQUE: XR wrist complete RT; examined in the Frontal, navicular, lateral, and oblique. FINDINGS: No acute osseous pathology, joint dislocation, or joint effusion. No evidence of any soft tissue swelling is seen. IMPRESSION: No acute osseous pathology.
--- NOTE | 2023-05-07 20:25 | XR ---
EXAMINATION TYPE: XR foot complete RT DATE OF EXAM: 05/07/2023 8:05 PM CLINICAL INDICATION:Female, 77 years old with history of fall; [facility] COMPARISON: None TECHNIQUE: XR foot complete RT examined in the AP, oblique, and lateral projections. FINDINGS: No evidence of any acute osseous pathology. No evidence of soft tissue swelling. Joints are preserve d. IMPRESSION: No evidence of acute fracture.
--- NOTE | 2023-05-07 20:35 | CT ---
EXAMINATION TYPE: CT brain cspine wo con CT DLP: 1497.3 mGycm, Automated exposure control for dose reduction was used. DATE OF EXAM: 05/07/2023 7:59 PM COMPARISON: 01/16/2023.. CLINICAL INDICATION:Female, 77 years old with history of fall; Fall, patient unsure if she hit her he ad, denies LOC. Screw placed in skull x 9 years ago. TECHNIQUE: Brain: Multiple axial CT images of the brain were obtained without IV contrast. Cspine: Axial CT images from the skull base to the inferior aspect of T2 we obtained without intraven ous contrast. Coronal and sagittal reformatted images were also reviewed. FINDINGS: Brain: Extra-axial spaces: No abnormal extra-axial fluid collections. Ventricular system: Dilatation in proportion to cerebral atrophy. Cerebral parenchyma: Cerebral atrophy. No acute intraparenchymal hemorrhage or mass effect. The marsh -white junction is well differentiated. Scattered hypoattenuating areas are seen within the white mat ter. Cerebellum: Unremarkable. Mass effect: No evidence of midline shift. Intracranial vasculature: unremarkable Soft tissues: Normal. Calvarium/osseous structures: No depressed skull fracture. Metallic device in the left posterior skul l. Paranasal sinuses and mastoid air cells: Clear. Visualized orbits: Bilateral aphakia Cervical spine: Fracture: None. Osseous structures: Multilevel degenerative disc disease changes with endplate spurring and disc oste ophyte complex's. Elongated styloid processes bilaterally. Vertebral alignment: Within normal limits. Spinal canal/Neural Foramina: No evidence of significant spinal canal narrowing. No evidence for sign ificant neural foraminal stenosis. Neck soft tissues: Prevertebral soft tissues are within normal limits. Other: The airway is patent. The lung apices are clear. Atherosclerosis of the left carotid bifurcati on. IMPRESSION: 1. No acute intracranial process. 2. Nonspecific white matter changes, likely secondary to chronic small vessel ischemic disease. 3. No evidence of cervical spine fracture. 4. Mild multilevel degenerative disc disease.
[2023-05-07] MEDS ORDERED: ACETAMINOPHEN TAB 325 MG TAB PO STA (20:50)
[2023-05-07] MEDS ORDERED: KETOROLAC 15 MG/ML 1 ML VIAL IM STA (20:50)
[2023-05-07 21:55] VITALS: BP 143/86; PULSE 88; RESP 16
== END 2023-05-07 21:35 | disposition home or self-care (01) ==
LOC: EC 19:11
DX: S69.91XA Unspecified injury of right wrist, hand and finger(s), initial encounter (principal); E11.9 Type 2 diabetes mellitus without complications; Z87.891 Personal history of nicotine dependence; Z88.2 Allergy status to sulfonamides; Z88.8 Allergy status to other drugs, medicaments and biological substances; W19.XXXA Unspecified fall, initial encounter
CPT/HCPCS: 73110; 73630; 72125; 70450; 99284; 96372; J1885

== ENCOUNTER 2023-11-27 09:05 | Emergency (ER) | payer MEDICARE, OTHER ==
[2023-11-27 09:14] VITALS: RESP 18; TEMP 98.2
--- NOTE | 2023-11-27 09:25 | ED ---
Abdominal Pain HPI - General Chief Complaint: Abdominal Pain Stated Complaint: Abd pain Time Seen by Provider: 11/27/23 09:23 Source: patient, family, RN notes reviewed Mode of arrival: ambulatory Limitations: no limitations - History of Present Illness Initial Comments: 78-year-old female presented to the ER with a chief complaint of lower abdominal pain. She states the pain has been progressively increasing in intensity for the past couple of days. She states last night she was unable to sleep due to the pain. She describes it as an achy/sharp left lower quadrant to mid lower quadrant abdominal pain. She also reports associated diarrhea. She denies any melena or hematochezia. Denies any urinary complaints. She does report nausea denies vomiting. Denies fevers, chills, chest pain, shortness of breath or peripheral edema. She does report a history of diverticulitis and states this feels similar. - Related Data Home Medications Medication Instructions Recorded Confirmed Glimepiride [Amaryl] 4 mg PO W/SUPPER 05/06/18 01/16/23 Sertraline HCl [Zoloft] 100 mg PO DAILY 07/21/20 01/16/23 metFORMIN HCL [Glucophage] 2,000 mg PO HS 06/24/21 01/16/23 Acetaminophen Tab [Tylenol] 975 mg PO DAILY 11/27/22 01/16/23 Atorvastatin [Lipitor] 20 mg PO HS 11/27/22 01/16/23 Fish Oil/Dha/Epa [Fish Oil 1,200 1 cap PO HS 11/27/22 01/16/23 mg Fish Oil] Fluticasone Propionate [Flonase 1 spr EA NOSTRIL BID 11/27/22 01/16/23 Allergy Relief] Multivit-Min/FA/Lycopen/Lutein 1 tab PO HS 11/27/22 01/16/23 [Centrum Silver Tablet] Pioglitazone [Actos] 45 mg PO HS 11/27/22 01/16/23 Tolterodine ER [Detrol LA] 4 mg PO HS 11/27/22 01/16/23 Previous Rx's Medication Instructions Recorded HYDROcodone/APAP 7.5-325MG [[place] 1 tab PO Q6HR PRN 3 Days #12 tab 01/16/23 7.5-325] Amoxic-Pot Clav 875-125Mg 1 tab PO Q8HR 5 Days #15 tab 11/27/23 [Augmentin 209-620] Allergies Allergy/AdvReac Type Severity Reaction Status Date / Time Sulfa (Sulfonamide AdvReac Intermediate Nausea Verified 11/27/23 09:14 Antibiotics) mold AdvReac Unknown throat Verified 11/27/23 09:14 irritation prednisone AdvReac anxious, Verified 11/27/23 09:14 jittery smoke AdvReac Unknown throat Uncoded 11/27/23 09:14 irritation Review of Systems ROS Statement: Those systems with pertinent positive or pertinent negative responses have been documented in the HPI. ROS Other: All systems not noted in ROS Statement are negative. Past Medical History Past Medical History: Cancer, CVA/TIA, Diabetes Mellitus, Hearing Disorder / Deafness, Osteoarthritis (OA), Pneumonia Additional Past Medical History / Comment(s): Basal Cell Skin Cancer removed from left posterior shoulder , migraines, December 1997 TIA, sciatica right leg, Hospitalized in July 2020 for diverticulitis., deaf left ear with cochlear implant History of Any Multi-Drug Resistant Organisms: None Reported Past Surgical History: Hysterectomy, Tubal Ligation Additional Past Surgical History / Comment(s): basal cell cancer removed left posterior shoulder jun 2021., lasik eye sx, cochlear implant lt, deviated septum surgery Past Anesthesia/Blood Transfusion Reactions: No Reported Reaction Additional Past Anesthesia/Blood Transfusion Reaction / Comment(s): mild clausterphobia Past Psychological History: No Psychological Hx Reported Smoking Status: Former smoker Past Alcohol Use History: Rare Past Drug Use History: None Reported - Past Family History Mother Family Medical History: Cancer, Coronary Artery Disease (CAD) Additional Family Medical History / Comment(s): breast cancer. triple vessel cabg- age 95 Father Family Medical History: Cancer Additional Family Medical History / Comment(s): age 62 General Exam Limitations: no limitations General appearance: alert, in no apparent distress Respiratory exam: Present: normal lung sounds bilaterally. Absent: respiratory distress, wheezes, rales, rhonchi, stridor Cardiovascular Exam: Present: regular rate, normal rhythm, normal heart sounds. Absent: systolic murmur, diastolic murmur, rubs, gallop, clicks GI/Abdominal exam: Present: soft, tenderness (Left lower quadrant/suprapubic), normal bowel sounds, hernia (Umbilical) Extremities exam: Present: normal inspection, full ROM, normal capillary refill. Absent: tenderness, pedal edema, joint swelling, calf tenderness Skin exam: Present: warm, dry, intact, normal color. Absent: rash Course Vital Signs 11/27/23 11/27/23 11/27/23 09:10 10:26 12:03 Temperature 98.2 F Pulse Rate 105 H 96 96 Respiratory 18 18 18 Rate Blood Pressure 126/72 160/81 130/62 O2 Sat by Pulse 94 L 95 Oximetry 11/27/23 12:41 Temperature Pulse Rate 96 Respiratory 18 Rate Blood Pressure 130/62 O2 Sat by Pulse 96 Oximetry Medical Decision Making - Medical Decision Making Was pt. sent in by a medical professional or institution (, PA, AGRICULTURE PROFESSOR, urgent care, hospital, or alf...) When possible be specific @ -No Did you speak to anyone other than the patient for history (EMS, parent, family, police, friend...)? What history was obtained from this source @ -No Did you review nursing and triage notes (agree or disagree)? Why? @ -I reviewed and agree with nursing and triage notes Were old charts reviewed (outside hosp., previous admission, EMS record, old EKG, old radiological studies, urgent care reports/EKG's, alf records)? Report findings @ -No old charts were reviewed Differential Diagnosis (chest pain, altered mental status, abdominal pain women, abdominal pain men, vaginal bleeding, weakness, fever, dyspnea, syncope, headache, dizziness, GI bleed, back pain, seizure, CVA, palpatations, mental health, musculoskeletal)? @ -Differential Abdominal Pain Women:Appendicitis, Cholecystitis, diverticulosis, ischemic bowel, pancreatitis, hepatitis, UTI, gastroenteritis, AAA, incarcerated hernia, bowel obstruction, constipation, inflammatory bowel, hepatitis, peptic ulcer disease, splenic infarction, perforated viscus, vulvitis, ovarian torsion, PID, kidney stone, placenta abruption, this is not meant to be an all-inclusive list EKG interpreted by me (3pts min.). @ -None X-rays interpreted by me (1pt min.). @ -None done CT interpreted by me (1pt min.). @ -CT abdomen pelvis remarkable for acute sigmoid diverticulitis/colitis. No evidence of free air or organized fluid collection. U/S interpreted by me (1pt. min.). @ -None done What testing was considered but not performed or refused? (CT, X-rays, U/S, labs)? Why? @ -None What meds were considered but not given or refused? Why? @ -None Did you discuss the management of the patient with other professionals (professionals i.e. , PA, AGRICULTURE PROFESSOR, lab, RT, psych nurse, social security assessor, pollution control engineer, teacher, tax compliance officer, case preparer and liner)? Give summary @ -No Was smoking cessation discussed for >3mins.? @ -No Was critical care preformed (if so, how long)? @ -No Were there social determinants of health that impacted care today? How? (Homelessness, low income, unemployed, alcoholism, drug addiction, transportation, low edu. Level, literacy, decrease access to med. care, half-way, rehab)? @ -No Was there de-escalation of care discussed even if they declined (Discuss DNR or withdrawal of care, Hospice)? DNR status @ -No What co-morbidities impacted this encounter? (DM, HTN, Smoking, COPD, CAD, Cancer, CVA, ARF, Chemo, Hep., AIDS, mental health diagnosis, sleep apnea, morbid obesity)? @ -Obese Was patient admitted / discharged? Hospital course, mention meds given and route, prescriptions, significant lab abnormalities, going to OR and other pertinent info. @ -Discharge. 78-year-old female presented to the ER with a chief complaint of abdominal pain. History and physical exam completed. Vitals stable. Patient in no signs of acute distress and nontoxic-appearing. Exam remarkable for focal left lower quadrant/suprapubic abdominal pain. Normal bowel sounds. No rebound or guarding. Laboratory studies obtained remarkable for white blood cell count 11.4 with a left shift otherwise unimpressive. CT abdomen pelvis performed due to focal abdominal tenderness. CT showing acute sigmoid diverticulitis/colitis. No evidence of free air organizing fluid collection at this time. Upon reevaluation, patient resting comfortably in exam room in no signs of acute distress. Patient reporting improvement of symptoms. Results discussed with patient, all questions answered. Patient stable for discharge at this time. Augmentin prescribed. Advise close follow-up with PCP. I also advised follow- up with GI, Dr. Vazquez. Strict return parameters discussed. Patient discharged in stable condition. Patient verbally expressed understanding and agreement with care plan. Case discussed with ED attending, Dr. Enriquez. Undiagnosed new problem with uncertain prognosis? @ -No Drug Therapy requiring intensive monitoring for toxicity (Heparin, Nitro, Insulin, Cardizem)? @ -No Were any procedures done? @ -No Diagnosis/symptom? @ -Diverticulitis Acute, or Chronic, or Acute on Chronic? @ -Acute Uncomplicated (without systemic symptoms) or Complicated (systemic symptoms)? @ -Uncomplicated Side effects of treatment? @ -No Exacerbation, Progression, or Severe Exacerbation? @ -No Poses a threat to life or bodily function? How? (Chest pain, [place], [place], pneumonia, PE, COPD, DKA, ARF, appy, cholecystitis, CVA, Diverticulitis, Homicidal, Suicidal, threat to staff... and all critical care pts) @ -Low likelihood at this time. Diverticulitis can lead to sepsis or bowel perforation which can be life-threatening. - Lab Data Result diagrams: 11/27/23 09:43 11/27/23 09:43 Lab Results 11/27/23 11/27/23 11/27/23 Range/Units 09:43 09:43 09:43 WBC 11.4 H (3.8-10.6) k/uL RBC 4.09 (3.80-5.40) m/uL Hgb 11.6 (11.4-16.0) gm/dL Hct 36.4 (34.0-46.0) % MCV 89.1 (80.0-100.0) fL MCH 28.3 (25.0-35.0) pg MCHC 31.8 (31.0-37.0) g/dL RDW 15.7 H (11.5-15.5) % Plt Count 237 (150-450) k/uL MPV 7.5 Neutrophils % 81 % Lymphocytes % 10 % Monocytes % 7 % Eosinophils % 1 % Basophils % 0 % Neutrophils # 9.2 H (1.3-7.7) k/uL Lymphocytes # 1.1 (1.0-4.8) k/uL Monocytes # 0.8 (0-1.0) k/uL Eosinophils # 0.1 (0-0.7) k/uL Basophils # 0.0 (0-0.2) k/uL Hypochromasia Slight Sodium 135 L (137-145) mmol/L Potassium 5.1 (3.5-5.1) mmol/L Chloride 105 (98-107) mmol/L Carbon Dioxide 24 (22-30) mmol/L Anion Gap 6 mmol/L BUN 21 H (7-17) mg/dL Creatinine 0.70 (0.52-1.04) mg/dL Est GFR (CKD-EPI)AfAm >90 (>60 ml/min/1.73 sqM) Est GFR (CKD-EPI)NonAf 84 (>60 ml/min/1.73 sqM) Glucose 158 H (74-99) mg/dL Plasma Lactic Acid Leroy 0.8 (0.7-2.0) mmol/L Calcium 9.1 (8.4-10.2) mg/dL Total Bilirubin 0.9 (0.2-1.3) mg/dL AST 29 (14-36) U/L ALT 10 (4-34) U/L Alkaline Phosphatase 91 (38-126) U/L Total Protein 6.6 (6.3-8.2) g/dL Albumin 3.9 (3.5-5.0) g/dL Amylase 57 (30-110) U/L Lipase 173 (23-300) U/L - Radiology Data Radiology results: report reviewed, image reviewed Disposition Clinical Impression: Diverticulitis Disposition: HOME SELF-CARE Condition: Stable Instructions (If sedation given, give patient instructions): Diverticulitis (DC), Diverticulitis Diet (ED) Additional Instructions: Complete full course of Augmentin. Follow-up with PCP. Return to the ER for any new or worsening concerns. Prescriptions: Amoxic-Pot Clav 875-125Mg [Augmentin 875-125] 1 tab PO Q8HR 5 Days #15 tab Is patient prescribed a controlled substance at d/c from ED?: No Referrals: Wily Kamara MD [Primary Care Provider] - 1-2 days Geeta Vazquez MD [STAFF PHYSICIAN] - 1-2 days Time of Disposition: 12:20
[2023-11-27] MEDS: ONDANSETRON 4 MG/2 ML VIAL IVP STA (09:38)
[2023-11-27] MEDS: KETOROLAC 15 MG/ML 1 ML VIAL IVP STA (09:39)
[2023-11-27] MEDS: SODIUM CHLORIDE 0.9% 1,000 ML IV STA (09:39)
[2023-11-27 10:06] LABS: Basophils % (A) 0 %; Eosinophils # (A) 0.1 k/uL (0-0.7); Eosinophils % (A) 1 %; HCT 36.4 % (34.0-46.0); HGB 11.6 gm/dL (11.4-16.0); Hypochromasia Slight; Lymphocytes # (A) 1.1 k/uL (1.0-4.8); Lymphocytes % (A) 10 %; MCH 28.3 pg (25.0-35.0); MCHC 31.8 g/dL (31.0-37.0); MCV 89.1 fL (80.0-100.0); Mean Platelet Volume 7.5; Monocytes # (A) 0.8 k/uL (0-1.0); Monocytes % (A) 7 %; Neutrophils # (A) 9.2 k/uL (1.3-7.7); Neutrophils % (A) 81 %; Platelet Count 237 k/uL (150-450); RBC 4.09 m/uL (3.80-5.40); RDW 15.7 % (11.5-15.5); WBC 11.4 k/uL (3.8-10.6)
[2023-11-27 10:25] LABS: ALT 10 U/L (4-34); African American GFR (CKD) >90 (>60 ml/min/1.73 sqM); Albumin 3.9 g/dL (3.5-5.0); Amylase 57 U/L (30-110); Anion Gap 6 mmol/L; Blood Urea Nitrogen 21 mg/dL (7-17); Calcium 9.1 mg/dL (8.4-10.2); Carbon Dioxide 24 mmol/L (22-30); Chloride 105 mmol/L (98-107); Glucose 158 mg/dL (74-99); Lipase 173 U/L (23-300); Non-African American GFR(CKD) 84 (>60 ml/min/1.73 sqM); Sodium 135 mmol/L (137-145); Total Bilirubin 0.9 mg/dL (0.2-1.3); Total Protein 6.6 g/dL (6.3-8.2)
[2023-11-27 10:27] LABS: AST 29 U/L (14-36); Potassium 5.1 mmol/L (3.5-5.1)
[2023-11-27 10:28] VITALS: PULSE 96
[2023-11-27 10:28] LABS: Alkaline Phosphatase 91 U/L (38-126)
--- NOTE | 2023-11-27 11:41 | CT ---
EXAMINATION TYPE: CT abdomen pelvis w con CT DLP: 1472.1 mGycm, Automated exposure control for dose reduction was used. DATE OF EXAM: 11/27/2023 11:01 AM COMPARISON: 01/16/2023. CLINICAL INDICATION:Female, 78 years old with history of LLQ abd pain; lower abdominal pain x3 days TECHNIQUE: Axial CT abdomen pelvis w con;Sagittal and coronal reformats were created on a separate w orkstation. Contrast used:100 mL of Isovue 300 with IV Contrast, (none if empty) Oral contrast used: without Oral Contrast (none if empty) FINDINGS: LOWER CHEST: Right middle lobe pulmonary nodule measuring 13 mm. Similar to prior. ABDOMEN LIVER: Unremarkable GALLBLADDER AND BILE DUCTS: Unremarkable. PANCREAS: Unremarkable. SPLEEN: Unremarkable. ADRENAL GLANDS: Unremarkable. KIDNEYS AND URETERS: No evidence of hydronephrosis or renal calculus. The ureters are unremarkable. Hyperdense proteinaceous/hemorrhagic cyst involving the left kidney. Additional simple appearing left renal cyst. PELVIS BLADDER: Unremarkable REPRODUCTIVE: Unremarkable. ABDOMEN & PELVIS STOMACH AND BOWEL: No evidence of bowel obstruction. Circumferential wall thickening of the sigmoid c olon with multiple diverticula with fat stranding changes. No free air or organizing fluid collection . PERITONEUM/RETROPERITONEUM: No evidence of pneumoperitoneum or free fluid. VASCULATURE: No evidence of aortic aneurysm. MUSCULOSKELETAL: No acute osseous abnormalities LYMPH NODES: No gross evidence for lymphadenopathy. SOFT TISSUE/ABDOMINAL WALL: Ventral wall hernia containing fat. IMPRESSION: Acute sigmoid diverticulitis/colitis. No evidence for free air or organizing fluid collection at this time.
[2023-11-27 12:05] VITALS: BP 130/62
== END 2023-11-27 12:42 | disposition home or self-care (01) ==
LOC: EC 09:05
DX: K57.32 Diverticulitis of large intestine without perforation or abscess without bleeding (principal); K52.9 Noninfective gastroenteritis and colitis, unspecified; E66.9 Obesity, unspecified; Z88.2 Allergy status to sulfonamides; Z88.8 Allergy status to other drugs, medicaments and biological substances; Z91.09 Other allergy status, other than to drugs and biological substances; Z87.891 Personal history of nicotine dependence; Z86.73 Personal history of transient ischemic attack (TIA), and cerebral infarction without residual deficits; Z68.37 Body mass index [BMI] 37.0-37.9, adult
CPT/HCPCS: 99284; 96374; 96375; 96361; 36415; 80053; 82150; 83605; 83690; 85025; 74177; J2405; J1885; Q9967

== ENCOUNTER → 2024-02-10 | Outpatient (CLI) | payer MEDICARE, OTHER ==
[2024-02-10 14:40] LABS: African American GFR (CKD) 82 (>60 ml/min/1.73 sqM); Blood Urea Nitrogen 30 mg/dL (7-17); Non-African American GFR(CKD) 72 (>60 ml/min/1.73 sqM)
--- NOTE | 2024-02-10 16:48 | CT ---
EXAMINATION TYPE: CT abdomen pelvis w con DATE OF EXAM: 02/10/2024 COMPARISON: 11/27/2023 HISTORY: LLQ pain CT DLP: 1676 mGycm CONTRAST: CT scan of the abdomen and pelvis is performed with Oral Contrast and with IV Contrast, patient injec galdino with 100ml mL of Isovue 370. FINDINGS: LUNG BASES-: Stable pulmonary nodule right middle lobe. No infiltrate. LIVER/GB: No calcified gallstones. No space occupying hepatic lesion. Biliary tree is of normal ca liber. PANCREAS: No inflammation. No distinct mass. SPLEEN: No splenic enlargement. No lesion seen. ADRENALS: No nodule. No thickening. KIDNEYS/BLADDER: No hydronephrosis. No nephrolithiasis. Again noted is hyperdense cystic lesion low er pole left kidney measuring 4.9 cm reflecting proteinaceous cyst or cyst with hemorrhagic content. Urinary bladder grossly unremarkable. BOWEL: Normal appendix. Normal bowel caliber. No inflammation. Sigmoid diverticulosis without diver ticulitis. Resolution of previously noted changes of diverticulitis of the sigmoid colon. GENITAL ORGANS: No gross abnormality. LYMPH NODES: No greater than 1cm abdominal or pelvic lymph nodes are appreciated. AORTA: No significant abnormality. OSSEOUS STRUCTURES: No significant abnormality is seen. OTHER: Fat-containing umbilical hernia measuring 8.2 x 5.4 cm. IMPRESSION: 1. Sigmoid diverticulosis without diverticulitis. 2.Fat-containing umbilical hernia measuring 8.2 x 5.4 cm. 3.Stable pulmonary nodule right middle lobe. [facility], , 02/10/2024 4:45 PM
== END | disposition home or self-care (01) ==
LOC: RADCTMAIN 13:51
PROVIDERS: ATTEND Family Medicine
DX: K42.9 Umbilical hernia without obstruction or gangrene (principal); K57.30 Diverticulosis of large intestine without perforation or abscess without bleeding; R91.1 Solitary pulmonary nodule; R10.32 Left lower quadrant pain
CPT/HCPCS: 82565; 84520; 74177; 36415; Q9967

== ENCOUNTER → 2024-03-24 | Outpatient (CLI) | payer MEDICARE, OTHER ==
--- NOTE | 2024-03-26 14:56 | MM ---
Reason for Exam: Screening (asymptomatic). Last mammogram was performed 3 year(s) and 10 month(s) ago. Patient History: Menarche at age 12. First Full-Term at age 25. Left ovary removed at age 58. Right ovary removed at age 58. Hysterectomy at age 58. Postmenopausal. Risk Values: Maddi 5 year model risk: 1.7%. NCI Lifetime model risk: 3.3%. Prior Study Comparison: 08/04/2017 Bilateral Screening Mammogram, [facility]. 06/03/2020 Bilateral Screening Mammogram, [facility]. Tissue Density: There are scattered areas of fibroglandular density. Findings: Analyzed By CAD. The pattern is symmetrical. Pattern Appears stable. A few scattered benign punctate calcifications are present. No suspicious groups of microcalcifications, spiculated or lobular masses, architectural distortion or other secondary signs of malignancy are mammographically apparent. Overall Assessment: Benign, BI-RAD 2 Management: Screening Mammogram of both breasts in 1 year. A negative mammogram report should not preclude additional follow up of suspicious palpable abnormalities. Patient should continue monthly self breast exam. A clinical breast exam by your physician is recommended on an annual basis and results should be correlated with mammographic findings. Note on Maddi scores and lifetime risk: 1. A Maddi score greater than 3% is considered moderate risk. If this is the case, consider specialist referral to assess eligibility for a risk reducing agent. 2. If overall lifetime risk for the development of breast cancer is 20% or higher, the patient may qualify for future screening with alternating mammogram and breast MRI. [facility], , 03/26/2024 2:53 PM. Electronically signed and approved by: Rich Montanez D.O. Radiologis
== END | disposition home or self-care (01) ==
LOC: RADMAMWWP 14:58
PROVIDERS: ATTEND Family Medicine
DX: Z12.31 Encounter for screening mammogram for malignant neoplasm of breast (principal); Z78.0 Asymptomatic menopausal state; R92.323 Mammographic fibroglandular density, bilateral breasts
CPT/HCPCS: 77063; 77067

== ENCOUNTER 2024-07-15 20:06 | Emergency (ER) | payer MEDICARE, OTHER ==
--- NOTE | 2024-07-15 20:37 | ED ---
Chest Pain HPI - General Chief Complaint: Chest Pain Stated Complaint: Chest Pain Time Seen by Provider: 07/15/24 20:13 Source: patient Mode of arrival: ambulatory Limitations: no limitations - History of Present Illness MD Complaint: chest pain -: hour(s) Onset: during rest Pain Location: substernal Pain Radiation: none Severity: moderate Quality: sharp Consistency: constant Improves With: nothing Worsens With: nothing Treatments Prior to Arrival: none - Related Data Home Medications Medication Instructions Recorded Confirmed Glimepiride [Amaryl] 4 mg PO W/SUPPER 05/06/18 01/16/23 Sertraline HCl [Zoloft] 100 mg PO DAILY 07/21/20 01/16/23 metFORMIN HCL [Glucophage] 2,000 mg PO HS 06/24/21 01/16/23 Acetaminophen Tab [Tylenol] 975 mg PO DAILY 11/27/22 01/16/23 Atorvastatin [Lipitor] 20 mg PO HS 11/27/22 01/16/23 Fish Oil/Dha/Epa [Fish Oil 1,200 1 cap PO HS 11/27/22 01/16/23 mg Fish Oil] Fluticasone Propionate [Flonase 1 spr EA NOSTRIL BID 11/27/22 01/16/23 Allergy Relief] Multivit-Min/FA/Lycopen/Lutein 1 tab PO HS 11/27/22 01/16/23 [Centrum Silver Tablet] Pioglitazone [Actos] 45 mg PO HS 11/27/22 01/16/23 Tolterodine ER [Detrol LA] 4 mg PO HS 11/27/22 01/16/23 Previous Rx's Medication Instructions Recorded HYDROcodone/APAP 7.5-325MG [Chamisal 1 tab PO Q6HR PRN 3 Days #12 tab 01/16/23 7.5-325] Amoxic-Pot Clav 875-125Mg 1 tab PO Q8HR 5 Days #15 tab 11/27/23 [Augmentin 875-125] Allergies Allergy/AdvReac Type Severity Reaction Status Date / Time Sulfa (Sulfonamide AdvReac Intermediate Nausea Verified 07/15/24 20:11 Antibiotics) mold AdvReac Unknown throat Verified 07/15/24 20:11 irritation prednisone AdvReac anxious, Verified 07/15/24 20:11 jittery smoke AdvReac Unknown throat Uncoded 07/15/24 20:11 irritation Review of Systems ROS Statement: Those systems with pertinent positive or pertinent negative responses have been documented in the HPI. ROS Other: All systems not noted in ROS Statement are negative. Constitutional: Denies: fever, chills Respiratory: Reports: cough. Denies: dyspnea Cardiovascular: Reports: chest pain. Denies: palpitations, orthopnea, edema, syncope Gastrointestinal: Denies: abdominal pain, nausea, vomiting Genitourinary: Denies: dysuria, hematuria Musculoskeletal: Denies: back pain Skin: Denies: rash Neurological: Denies: headache, weakness EKG Findings - EKG Results: EKG: interpreted by ERMD, sinus rhythm (Rate 99 bpm), normal axis, normal QRS - Blocks, [place], Hypertrophy, ST Abn: Repolarization changes or abnormalities: nonspecific abnormality, ST segment, and/or T wave Past Medical History Past Medical History: Cancer, CVA/TIA, Diabetes Mellitus, Hearing Disorder / Deafness, Osteoarthritis (OA), Pneumonia Additional Past Medical History / Comment(s): Basal Cell Skin Cancer removed from left posterior shoulder , migraines, December 1997 TIA, sciatica right leg, Hospitalized in July 2020 for diverticulitis., deaf left ear with cochlear implant History of Any Multi-Drug Resistant Organisms: None Reported Past Surgical History: Hysterectomy, Tubal Ligation Additional Past Surgical History / Comment(s): basal cell cancer removed left posterior shoulder jun 2021., lasik eye sx, cochlear implant lt, deviated septum surgery Past Anesthesia/Blood Transfusion Reactions: No Reported Reaction Additional Past Anesthesia/Blood Transfusion Reaction / Comment(s): mild clausterphobia Past Psychological History: No Psychological Hx Reported Smoking Status: Former smoker Past Alcohol Use History: Rare Past Drug Use History: None Reported - Past Family History Mother Family Medical History: Cancer, Coronary Artery Disease (CAD) Additional Family Medical History / Comment(s): breast cancer. triple vessel cabg- age 95 Father Family Medical History: Cancer Additional Family Medical History / Comment(s): age 62 General Exam Limitations: no limitations General appearance: alert, in no apparent distress Head exam: Present: atraumatic, normocephalic Eye exam: Present: normal appearance. Absent: scleral icterus, conjunctival injection ENT exam: Present: normal oropharynx Neck exam: Present: normal inspection Respiratory exam: Present: normal lung sounds bilaterally, chest wall tenderness. Absent: respiratory distress, wheezes, rales, rhonchi, stridor, accessory muscle use Cardiovascular Exam: Present: regular rate, normal rhythm, normal heart sounds. Absent: systolic murmur, diastolic murmur, rubs, gallop GI/Abdominal exam: Present: soft. Absent: distended, tenderness, guarding, rebound, rigid, mass Extremities exam: Present: normal inspection, normal capillary refill. Absent: pedal edema, calf tenderness Back exam: Present: normal inspection. Absent: CVA tenderness (R), CVA tenderness (L) Neurological exam: Present: alert Skin exam: Present: warm, dry, intact, normal color. Absent: rash Course Vital Signs 07/15/24 07/15/24 07/15/24 20:06 20:16 21:01 Temperature 97.9 F Pulse Rate 100 93 Pulse Rate [ 98 Logistics Engineer ] Respiratory 20 18 Rate Blood Pressure 180/66 138/63 O2 Sat by Pulse 97 94 L Oximetry 07/15/24 22:35 Temperature 98.0 F Pulse Rate 93 Pulse Rate [ Logistics Engineer ] Respiratory 18 Rate Blood Pressure 154/71 O2 Sat by Pulse 94 L Oximetry Chest Pain MDM - MDM The patient had chest x-ray that I interpreted as negative for acute infiltrate, no pneumothorax or congestive heart failure. There does appear to be a small amount of atelectasis at the base. With the patient's tests had resulted I went and reevaluated and she states that all of her symptoms have resolved. I stated that my preference would be to admit her to have cardiology consultation, telemetry monitoring, serial cardiac enzymes but the patient states that she wants to go home. She does agree to return if any symptoms recur or if she is not right in any way. She will have follow-up as an outpatient. I was also going to give some insulin to treat her hyperglycemia but she is declining that stating she has to go home and take her evening medications. Was pt. sent in by a medical professional or institution (, PA, PAWN BROKER, urgent care, hospital, or [facility]...) When possible be specific @ -[No] Did you speak to anyone other than the patient for history (EMS, parent, family, police, friend...)? What history was obtained from this source @ -[No] Did you review nursing and triage notes (agree or disagree)? Why? @ -[I reviewed and agree with nursing and triage notes] Were old charts reviewed (outside hosp., previous admission, EMS record, old EKG, old radiological studies, urgent care reports/EKG's, [facility] records)? Report findings @ -[No old charts were reviewed] Differential Diagnosis (chest pain, altered mental status, abdominal pain women, abdominal pain men, vaginal bleeding, weakness, fever, dyspnea, syncope, headache, dizziness, GI bleed, back pain, seizure, CVA, palpatations, mental health, musculoskeletal)? @ -[Differential Chest Pain: Stable Angina, Unstable Angina, STEMI, NSTEMI Aortic Dissection, Pneumothorax, Musculoskeletal, Esophageal Spasm GERD, Cholecystitis, Pancreatitis, Zoster, this is not meant to be an all-inclusive list. EKG interpreted by me (3pts min.). @ -[I interpreted as above] X-rays interpreted by me (1pt min.). @ -[I interpreted as above CT interpreted by me (1pt min.). @ -[None done] U/S interpreted by me (1pt. min.). @ -[None done] What testing was considered but not performed or refused? (CT, X-rays, U/S, labs)? Why? @ -[None] What meds were considered but not given or refused? Why? @ -[None] Did you discuss the management of the patient with other professionals (professionals i.e. , PA, PAWN BROKER, lab, RT, psych nurse, social insurance specialist, third steel pourer, teacher, amphibious operations officer, case advocate)? Give summary @ -[No] Was smoking cessation discussed for >3mins.? @ -[No] Was critical care preformed (if so, how long)? @ -[No] Were there social determinants of health that impacted care today? How? (Homelessness, low income, unemployed, alcoholism, drug addiction, transportation, low edu. Level, literacy, decrease access to med. care, [facility], rehab)? @ -[No] Was there de-escalation of care discussed even if they declined (Discuss DNR or withdrawal of care, Hospice)? DNR status @ -[No] What co-morbidities impacted this encounter? (DM, HTN, Smoking, COPD, CAD, Cancer, CVA, ARF, Chemo, Hep., AIDS, mental health diagnosis, sleep apnea, morbid obesity)? @ -[Diabetes Was patient admitted / discharged? Hospital course, mention meds given and route, prescriptions, significant lab abnormalities, going to OR and other pertinent info. @ -[See above Undiagnosed new problem with uncertain prognosis? @ -[No] Drug Therapy requiring intensive monitoring for toxicity (Heparin, Nitro, Insulin, Cardizem)? @ -[No] Were any procedures done? @ -[No] Diagnosis/symptom? @ -[default] Acute, or Chronic, or Acute on Chronic? @ -[Acute chest pain Acute hyperglycemia in diabetic patient Uncomplicated (without systemic symptoms) or Complicated (systemic symptoms)? @ -[Uncomplicated Side effects of treatment? @ -[No] Exacerbation, Progression, or Severe Exacerbation? @ -[No] Poses a threat to life or bodily function? How? (Chest pain, [place], OR, pneumonia, PE, COPD, DKA, ARF, appy, cholecystitis, CVA, Diverticulitis, Homicidal, Suicidal, threat to staff... and all critical care pts) @ -[There is some risk, patient states understands and will have close follow- up, return parameters discussed All treatments are based on ideal body weight as in ED triage Disposition Clinical Impression: Chest pain, Hyperglycemia due to diabetes mellitus Disposition: HOME SELF-CARE Condition: Good Instructions (If sedation given, give patient instructions): Chest Pain (ED) Is patient prescribed a controlled substance at d/c from ED?: No Referrals: Wily Kamara MD [Primary Care Provider] - 1-2 days
[2024-07-15 20:48] LABS: Anisocytosis Slight; Basophils % (A) 1 %; Eosinophils # (A) 0.3 k/uL (0-0.7); Eosinophils % (A) 3 %; HCT 36.9 % (34.0-46.0); HGB 11.5 gm/dL (11.4-16.0); Hypochromasia Slight; Lymphocytes # (A) 2.5 k/uL (1.0-4.8); Lymphocytes % (A) 33 %; MCH 28.5 pg (25.0-35.0); MCHC 31.2 g/dL (31.0-37.0); MCV 91.4 fL (80.0-100.0); Mean Platelet Volume 7.2; Monocytes # (A) 0.6 k/uL (0-1.0); Monocytes % (A) 7 %; Neutrophils # (A) 4.1 k/uL (1.3-7.7); Neutrophils % (A) 54 %; Platelet Count 250 k/uL (150-450); RBC 4.04 m/uL (3.80-5.40); RDW 16.5 % (11.5-15.5); WBC 7.7 k/uL (3.8-10.6)
--- NOTE | 2024-07-15 20:59 | XR ---
EXAMINATION TYPE: XR chest 2V DATE OF EXAM: 07/15/2024 8:48 PM COMPARISON: Chest radiograph 06/25/2021. CLINICAL INDICATION: Female, 78 years old with history of Chest Pain; [facility] TECHNIQUE: XR chest 2V Frontal and lateral views of the chest. FINDINGS: Lungs/Pleura: There is no evidence of pleural effusion, focal consolidation, or pneumothorax. Pulmonary vascularity: Unremarkable. Heart/mediastinum: Cardiomediastinal silhouette is unremarkable. Musculoskeletal: No acute osseous pathology. Other findings: None IMPRESSION: No acute cardiopulmonary disease/process. [facility], , 07/15/2024 8:56 PM
[2024-07-15 21:02] VITALS: PULSE 93; RESP 18
[2024-07-15] MEDS: MORPHINE SULFATE 4 MG/ML SYRINGE IV STA (21:03)
[2024-07-15 21:11] LABS: ALT 15 U/L (4-34); AST 25 U/L (14-36); African American GFR (CKD) 72 (>60 ml/min/1.73 sqM); Albumin 3.8 g/dL (3.5-5.0); Alkaline Phosphatase 107 U/L (38-126); Anion Gap 10 mmol/L; Blood Urea Nitrogen 31 mg/dL (7-17); Calcium 9.3 mg/dL (8.4-10.2); Carbon Dioxide 25 mmol/L (22-30); Chloride 99 mmol/L (98-107); Glucose 277 mg/dL (74-99); Magnesium 1.6 mg/dL (1.6-2.3); Non-African American GFR(CKD) 62 (>60 ml/min/1.73 sqM); Potassium 4.2 mmol/L (3.5-5.1); Sodium 134 mmol/L (137-145); Total Bilirubin 0.3 mg/dL (0.2-1.3); Total Protein 6.3 g/dL (6.3-8.2)
[2024-07-15 21:13] LABS: Partial Thromboplastin Time 22.9 sec (22.0-30.0); Prothrombin Time 10.9 sec (10.0-12.5)
[2024-07-15 22:18] LABS: Influenza A Not Detected (Not Detectd); Influenza B Not Detected (Not Detectd); RSV Not Detected (Not Detectd)
[2024-07-15] MEDS: INSULIN REGULAR 100 UNIT/ML VIAL (IV) SQ STA (22:27)
[2024-07-15 22:36] VITALS: BP 154/71; TEMP 98
== END 2024-07-15 22:35 | disposition home or self-care (01) ==
LOC: EC 20:06
DX: R07.89 Other chest pain (principal); E11.65 Type 2 diabetes mellitus with hyperglycemia; Z79.84 Long term (current) use of oral hypoglycemic drugs; Z88.2 Allergy status to sulfonamides; Z88.8 Allergy status to other drugs, medicaments and biological substances; Z91.09 Other allergy status, other than to drugs and biological substances; Z91.048 Other nonmedicinal substance allergy status; Z87.891 Personal history of nicotine dependence; Z86.73 Personal history of transient ischemic attack (TIA), and cerebral infarction without residual deficits
CPT/HCPCS: 36415; 93005; 80053; 83735; 84484; 85025; 85610; 85730; 87636; 71046; 99285; 96374; J2270

== ENCOUNTER → 2024-11-17 | Day surgery (SDC) | payer MEDICARE, OTHER ==
[~2024-11-17] MED LIST changes: -LACTATED RINGERS 1,000 ML IV SCH; +LIDOCAINE 1% INJ 10MG/ML (20 ML MDV) ONE; +PROPOFOL 10 MG/ML 20 ML VIAL IV ONE
[2024-11-17] MEDS: IV FLUID CONTINUATION 1,000 ML IV ONE (08:37)
[2024-11-17 08:50] VITALS: RESP 16; TEMP 97.4
[2024-11-17 09:01] LABS: Glucose,Whole Blood 126 mg/dL (70-110)
[2024-11-17] MEDS: LACTATED RINGERS 1,000 ML IV SCH (09:02)
--- NOTE | 2024-11-17 09:34 | P.PCN ---
Date of Procedure: 11/17/24 Procedure(s) Performed: BRIEF HISTORY: Patient is a 79-year-old, pleasant, white female scheduled for an upper endoscopy as a part of evaluation of chronic epigastric pain for the last several months duration. She was treated with Prilosec with no help. Recently was started on Tapazole 40 mg daily and symptoms are gradually improving. She is here for an upper endoscopy to rule out peptic ulcer disease. PROCEDURE PERFORMED: Esophagogastroduodenoscopy with biopsy. PREOPERATIVE DIAGNOSIS: Chronic epigastric pain. IV sedation per anesthesia. PROCEDURE: After informed consent was obtained, the patient was brought into the endoscopy unit. IV sedation was administered by Anesthesia under continuous monitoring. Initially the Olympus GIF-140 video endoscope was inserted into the mouth. Esophagus intubated without any difficulty. It was gradually advanced into the stomach and duodenum and carefully examined. The bulb and the second part of the duodenum appeared normal. The scope at this time was withdrawn to the stomach, adequately insufflated with air, and upon careful examination, mucosa of the antrum, had mild gastritis and biopsies were done from this area. Mucosa of the body, cardia and the fundus appeared normal. The scope was then withdrawn into the esophagus. Small sliding-type hiatal hernia noted. The GE junction was located at 39 cm from the incisors. The esophagus appeared normal. There were no erosions or ulcerations seen and the patient tolerated the procedure well. IMPRESSION: 1. Mild antral gastritis. 2. Small sliding-type hiatal hernia. RECOMMENDATIONS: The findings of this examination were discussed with the patient as well as her family. She was advised to follow the biopsy results. Continue with Protonix 40 mg daily and follow antireflux measures..
[2024-11-17 09:58] VITALS: PULSE 81
[2024-11-17 10:11] VITALS: BP 146/73
== END ==
LOC: ORWHC2ENDO 08:21
PROVIDERS: ATTEND Internal Medicine Gastroenterology
DX: K29.70 Gastritis, unspecified, without bleeding (principal); K21.00 Gastro-esophageal reflux disease with esophagitis, without bleeding; K44.9 Diaphragmatic hernia without obstruction or gangrene; I10 Essential (primary) hypertension; E78.5 Hyperlipidemia, unspecified; E11.9 Type 2 diabetes mellitus without complications; Z86.73 Personal history of transient ischemic attack (TIA), and cerebral infarction without residual deficits; Z79.84 Long term (current) use of oral hypoglycemic drugs; Z79.899 Other long term (current) drug therapy; Z88.2 Allergy status to sulfonamides; Z88.8 Allergy status to other drugs, medicaments and biological substances
CPT/HCPCS: 88305; 43239; J2003; J2704

== ENCOUNTER 2024-12-01 09:05 | Inpatient (IN) | payer MEDICARE, OTHER ==
[2024-12-01] MEDS ORDERED: LIDOCAINE 1% (10MG/ML) FOR IV START INTRADERMA PRN (09:29)
[2024-12-01] MEDS ORDERED: fentaNYL (PF) 50 MCG/ML 2 ML AMP IVP PRN (09:29)
[2024-12-01] MEDS: IV FLUID CONTINUATION 1,000 ML IV ONE (09:42)
[2024-12-01 09:59] LABS: Glucose,Whole Blood 134 mg/dL (70-110)
[2024-12-01] MEDS: LACTATED RINGERS 1,000 ML IV SCH (10:17)
[2024-12-01] MEDS: ONDANSETRON 4 MG/2 ML VIAL IVP ONE (10:17)
[2024-12-01] MEDS: FAMOTIDINE 20 MG/2 ML VIAL IV STA (10:17)
[2024-12-01] MEDS: MIDAZOLAM 2 MG/2 ML VIAL IV PRN (10:31)
[2024-12-01] MEDS ORDERED: fentaNYL (PF) 50 MCG/ML 2 ML AMP ONE (11:45)
[2024-12-01] MEDS ORDERED: MIDAZOLAM 2 MG/2 ML VIAL ONE (11:45)
--- NOTE | 2024-12-01 13:21 | FL ---
EXAMINATION TYPE: FL guidance operating room, XR ankle complete LT DATE OF EXAM: 12/01/2024 FLUOROSCOPY intraoperative fluoroscopy during left ankle ORIF there is placement of alok in the distal fibula with transsyndesmotic screws into cortical screws at the medial malleolus. 3 images are provi ded. Total fluoroscopy time 1 minute 10 seconds. Total dose: 0.73 Gycm2 [facility], Workstation: [facility], 12/01/2024 1:19 PM
[2024-12-01] MEDS ORDERED: HYDROmorphone 0.5 MG/0.5 ML SYRINGE IVP PRN ×2 (13:24)
[2024-12-01 13:39] LABS: Glucose,Whole Blood 135 mg/dL (70-110)
--- NOTE | 2024-12-01 13:47 | P.OP ---
Date of Procedure: 12/01/24 Preoperative Diagnosis: Displaced left bimalleolar ankle fracture Postoperative Diagnosis: Same Procedure(s) Performed: Open reduction with internal fixation left bimalleolar ankle fracture Implants: Arthrex 3.8 mm Fibulock nail with 3.0 mm cancellous screws x 2 Arthrex 3.5 mm cortical syndesmotic screws x 2 Arthrex 3.5 mm partially-threaded screws x 2 Anesthesia: GETA Surgeon: Hernan Harry Estimated Blood Loss (ml): 5 Pathology: none sent Condition: stable Disposition: PACU Description of Procedure: The patient was brought into the op room and placed on the table in supine position. Timeout was taken to confirm correct patient identifiers, correct laterality of surgery, and correct procedure. Once all staff in the room was in agreement with the timeout, the patient was then administered a spinal anesthetic. Then the patient was laid in the supine position on the table. A well-padded tourniquet was placed on the operative leg. The left leg was prepped and draped in usual manner. The leg was exsanguinated, the knee flexed, and the tourniquet inflated to 250 mmHg. An incision was made over the fracture line. It was deepened directly down to bone and then the soft tissue reflected off the fracture site. Soft tissue and hematoma removed from between the fracture fragments. A bone clamp was then used to reduce the fracture. Fluoroscopy confirmed adequate reduction of the fracture. Utilizing live fluoroscopy, landmarks were made over the tip of the lateral malleolus as well as the long access down the central aspect of the fibula for the placement of the guidewire. The guidewire was used to penetrate the skin to access the tip of the lateral malleolus. AP and lateral views with fluoroscopy while holding the wire in place, indicated a correct trajectory. The wire was advanced through the fracture line. Fluoroscopy was used to confirm that the wire was coursing properly. Then it was advanced past the fracture and into the shaft of the fibula. An incision was made at the entry point of the wire over the skin. The large reamer was inserted over the wire and advanced down to the proper depth. The smaller reamer was inserted and advanced down to proper depth. Patient had fairly significant osteoporosis therefore the wider diameter nail was chosen. The nail was attached to the jig and inserted into the larger drill hole and advanced until it was at proper depth as indicated on fluoroscopy. The talons were deployed to hold the nail in place. The drill guides for the distal locking screws were placed through the jig where they contacted the skin. Small incisions were made for the placement of the drill and screws. Drilling was performed but that did not penetrate the medial cortex of the fibula. The screws were inserted and advanced until the head engaged the lateral cortex of the fibula. Fluoroscopic imaging showed proper placement of both screws. The drill guides for the syndesmotic screws were placed through the appropriate holes in the jig. Small stab incisions were made through the screw for the passage of the drill bit and screws. Drilling was done from lateral to medial. All 4 cortices were drilled. Cortical screws were inserted and advanced until all threads are through all 4 cortices of the head contacted the lateral malleolus. This was repeated for the second screw. Fluoroscopic imaging of this construct showed near anatomic reduction of the fracture with restored length. Then attention was directed to the medial malleolus fracture. This fracture was fairly well reduced on fluoroscopy without any gapping. The decision was made for 2 percutaneous screws. Guidewires for the partially-threaded screws were inserted at the tip of the medial malleolus and advanced into the tibia, avoiding the ankle joint. Fluoroscopy confirmed the proper trajectory of the wires on AP and lateral views. Small stab incisions were made through the skin and dissected down to the medial malleolus. The partially-threaded screws were placed over the wires and advanced until they contacted the cortex of the medial malleolus. There was fairly good bone purchase given the patient's osteoporosis. There was adequate compression of the fracture itself. Final fluoroscopic imaging showed anatomic alignment of all fractures. All hardware was properly positioned. The wounds were irrigated thoroughly with antibiotic saline. The longer incision over the lateral malleolus had closure done with 4- 0 Monocryl first through the subcutaneous layer. Skin closure of all incisions was done with alida. Arthrex jumpstart and a bulky dry dressing applied to the left ankle. The tourniquet was released and capillary refill returned to all digits on the left foot. The patient was placed in a well-padded, well molded plaster posterior mold/sugar-tong splint. The ankle was held in neutral position until the splint was fully dried. The patient was taken recovery vital signs stable
[2024-12-01] MEDS: HYDROcodone/APAP 5-325MG 1 EACH TAB PO PRN (15:26)
[2024-12-01 16:05] LABS: Glucose,Whole Blood 149 mg/dL (70-110)
[2024-12-01] MEDS: HYDROmorphone 0.5 MG/0.5 ML SYRINGE IVP PRN ×2 (16:38→22:18)
[2024-12-01] MEDS: DEXAMETHASONE SOD PHOSPHATE 4 MG/ML 1 ML VIAL IV ONE (17:06)
[2024-12-01] MEDS ORDERED: DICYCLOMINE 20 MG TAB PO PRN (19:11)
[2024-12-01] MEDS ORDERED: DEXTROSE 50% SYRINGE 50 ML IVP PRN ×2 (19:16)
[2024-12-01 20:15] LABS: Glucose,Whole Blood 168 mg/dL (70-110)
[2024-12-01] MEDS: IPRATROPIUM-ALBUTEROL 3 ML NEB INHALATION PRN (20:27)
[2024-12-01] MEDS: ATORVASTATIN 20 MG TAB PO SCH (21:02)
[2024-12-01] MEDS: INSULIN LISPRO (HumaLOG) 100 UNIT/ML 10 mL VL SQ SCH (21:02)
[2024-12-01] MEDS: ONDANSETRON 4 MG/2 ML VIAL IVP PRN (21:54)
--- NOTE | 2024-12-01 22:12 | XR ---
EXAMINATION TYPE: XR chest 2V DATE OF EXAM: 12/01/2024 CLINICAL INDICATION: Female, 79 years old with history of SOB and tachycardia, TECHNIQUE: Frontal and lateral views of the chest are obtained. COMPARISON: Chest x-ray July 15, 2024 FINDINGS: Increased interstitial markings bilaterally. No pleural effusion or pneumothorax is seen bi laterally. The cardiac silhouette size remains within normal limits. The osseous structures are int act. IMPRESSION: Suspect fluid overload state. Correlate clinically. [facility], , 12/01/2024 10:10 PM
[2024-12-01 22:31] LABS: African American GFR (CKD) 72 (>60 ml/min/1.73 sqM); Anion Gap 8 mmol/L; Blood Urea Nitrogen 21 mg/dL (7-17); Calcium 9.0 mg/dL (8.4-10.2); Carbon Dioxide 20 mmol/L (22-30); Chloride 106 mmol/L (98-107); Glucose 172 mg/dL (74-99); Non-African American GFR(CKD) 62 (>60 ml/min/1.73 sqM); Potassium 4.5 mmol/L (3.5-5.1); Sodium 134 mmol/L (137-145)
--- NOTE | 2024-12-01 23:21 | CT ---
EXAMINATION TYPE: CT angio chest DATE OF EXAM: 12/01/2024 COMPARISON: Chest CT January 16, 2023 CLINICAL INDICATION: Female, 79 years old with history of positive D-dimer, Tachy, SOB, , TECHNIQUE: CTA scan of the thorax is performed with IV Contrast, patient injected with 90 mL of Isovue 300, pulm onary embolism protocol. MIP Images are created on CT scanner and reviewed. Automated Exposure Control for Dose Reduction was Utilized. FINDINGS: LUNGS: Tiny bilateral pleural effusions and patchy ground glass opacities bilaterally suggesting alve olar edema with mild to moderate interstitial edema seen bilaterally. No focal consolidation. HEART: Size within normal limits. Severe coronary artery calcifications present. At least moderate le ft atrial and left ventricular dilatation is present. MEDIASTINUM: There is satisfactory enhancement of the pulmonary artery and its branches, there is no CT evidence for pulmonary embolism. Main pulmonary artery measures 3.3 cm suggests underlying pulmona ry artery hypertension . Prominent soft tissue subcarinal level suspicious for abnormal adenopathy or possible neoplasm is new from prior CT. Advise nonemergent PET CT follow-up to further evaluate. N o pericardial effusion is seen. OTHER: No additional significant abnormality is seen. IMPRESSION: 1. No CT evidence for acute pulmonary embolism. 2. Findings consistent with fluid overload state are present as detailed above. [facility], , 12/01/2024 11:18 PM
[2024-12-02] MEDS: FUROSEMIDE 10 MG/ML 2 ML VIAL IV ONE (00:24)
[2024-12-02] MEDS: hydrOXYzine HCL 25 MG TAB PO SCH (00:33)
[2024-12-02 02:05] LABS: Basophils # (A) 0.04 X 10*3/uL (0.00-0.10); Basophils % (A) 0.3 %; Eosinophils # (A) 0.08 X 10*3/uL (0.04-0.35); Eosinophils % (A) 0.6 %; HCT 33.7 % (37.2-46.3); HGB 10.4 g/dL (12.0-15.0); Immature Grans, Automated 0.80 %; Lymphocytes # (A) 1.14 X 10*3/uL (0.90-5.00); Lymphocytes % (A) 8.8 %; MCH 27.2 pg (27.0-32.0); MCHC 30.9 g/dL (32.0-37.0); MCV 88.0 FL (80.0-97.0); Monocytes # (A) 0.96 X 10*3/uL (0.20-1.00); Monocytes % (A) 7.4 %; NRBC Per 100 WBC 0 X 10*3/uL (0.00-0.01); Neutrophils # (A) 10.64 X 10*3/uL (1.80-7.70); Neutrophils % (A) 82.1 %; Platelet Count 318 X 10*3/uL (140-440); RBC 3.83 X 10*6/uL (4.10-5.20); RDW 15.5 % (11.5-14.5); WBC 12.96 X 10*3/uL (4.50-10.00)
--- NOTE | 2024-12-02 05:20 | P.CON ---
Consult Note - . Consult date: 12/01/24 Assessment/Plan:: Patient is a 79-year-old female with a PMH of - Insulin-dependent diabetes mellitus - Deaf left ear with cochlear implant - History of basal cell skin cancer s/p resection in 2021 - History of diverticulitis in 2020 - History of TIA in 1997 Is here status post open reduction with internal fixation of left bimalleolar ankle fracture. Patient is going to a rehab center after the surgery on the left ankle, and requires inpatient stay. Patient is in acute distress and agitation after surgery. She is saturating 95% on 3 L nasal cannula. At bedside, patient complained of shortness of breath and was tachycardic at 106. Denied history of COPD or asthma. Denied having shortness of breath before this admission. Labs WBC 12.96, Hgb 10.4, HCT 33.7, PLT count 318 Na 134, K 4.5, BUN 21, Cr 0.89, GFR 72 Vitals T 98.3 F, HR 106, RR 16, BP 154/82, O2 sat 98% on RA Review of systems: Pertinent positives and negatives as discussed in HPI, a complete review of systems was performed and all other systems are negative. Physical examination: Vital signs reviewed General: acute distress, well-nourished, Derm: warm, dry, and well perfused. No lesions, nodules or rashes are noted Head: normocephalic and atraumatic Eyes: EOMI, anicteric sclera ENT: nose and ears atraumatic. Deaf left ear with cochlear implant Neck: supple, no appreciable thyromegaly Mouth: no lip lesion Cardiovascular: normal S1S2, no murmur or gallops Lungs: Normal breathing effort, wheezing sound bilaterally. no crackles or rhonchi, no accessory muscle use Abdominal: soft, nontender to palpation, no guarding, no rebound, no appreciable organomegaly Ext: muscle strength 5 out of 5 in upper extremities, no gross muscle atrophy. Could not examine left lower extremity due to bandage after surgery. Neuro: no focal sensory or motor deficits are noted Psych: Alert, oriented x3 Assessment/Plan: #. SIRS without source of infection , most likely reactive to acute left LE fracture and post op #. Left bimalleolar ankle fracture s/p open reduction and internal fixation - Tachycardic at 106, WBC 12.46 - Follow-up on blood culture and lactic acid - EKG showed sinus tachycardia #. Dyspnea s/p surgery rule out PE - Patient was wheezy on auscultation bilaterally -DuoNeb treatment was ordered - D-dimer positive 4.36, however, D-dimer is usually elevated after surgery. - Chest x-ray showed fluid overload - CTA chest showed no evidence of PE, and showed fluid overload - Given 20 mg furosemide IV - Monitor O2 saturation levels - Incentive spirometery every hour tp prevent atelectesis #. Diabetes mellitus insulin-dependent - Hold metformin, pioglitazone, glimepiride - Check HbA1c - Start insulin sliding scale - Monitor blood glucose levels #. Hyperlipidemia - Resume atorvastatin 40 mg - Check lipid panel #. History of diverticulitis in 2020 #. Deafness of left ear with cochlear implant #. History of basal cell carcinoma s/p resection in 2021 DVT prophylaxis: Lovenox 40 mg The patient is admitted with an anticipated less than 2 midnight stay for evaluation of sepsis CODE STATUS: Full code Discussed with: Dr. Cuellar Anticipated discharge place: Rehab Adalgisa Glynn MD PGY-1 IM Dictation was produced using [employer] dictation software. please excuse any grammatical, word or spelling errors. I have seen and evaluated the patient today. I Discussed the case with the resident and agree with the resident's findings I edited the assessment and plan as necessary as documented in the resident's note.
[2024-12-02 06:16] LABS: Glucose,Whole Blood 168 mg/dL (70-110)
[2024-12-02] MEDS: ENOXAPARIN 40 MG/0.4 ML SYRINGE SQ SCH (08:51)
[2024-12-02] MEDS: SERTRALINE 100 MG TAB PO SCH (08:52)
[2024-12-02 10:05] LABS: Basophils # (A) 0.05 X 10*3/uL (0.00-0.10); Basophils % (A) 0.4 %; Eosinophils # (A) 0.01 X 10*3/uL (0.04-0.35); Eosinophils % (A) 0.1 %; HCT 35.9 % (37.2-46.3); HGB 11.0 g/dL (12.0-15.0); Immature Grans, Automated 1.40 %; Lymphocytes # (A) 0.59 X 10*3/uL (0.90-5.00); Lymphocytes % (A) 4.2 %; MCH 27.3 pg (27.0-32.0); MCHC 30.6 g/dL (32.0-37.0); MCV 89.1 FL (80.0-97.0); Monocytes # (A) 0.99 X 10*3/uL (0.20-1.00); Monocytes % (A) 7.0 %; NRBC Per 100 WBC 0 X 10*3/uL (0.00-0.01); Neutrophils # (A) 12.21 X 10*3/uL (1.80-7.70); Neutrophils % (A) 86.9 %; Platelet Count 357 X 10*3/uL (140-440); RBC 4.03 X 10*6/uL (4.10-5.20); RDW 15.8 % (11.5-14.5); WBC 14.05 X 10*3/uL (4.50-10.00)
[2024-12-02] MEDS: FUROSEMIDE 10 MG/ML 4 ML VIAL IV STA (10:25)
[2024-12-02 10:39] LABS: Anion Gap 15.60 mmol/L (4.00-12.00); BUN/Creat Ratio 19.20 Ratio (12.00-20.00); Blood Urea Nitrogen 19.2 mg/dL (9.0-27.0); Calcium 8.9 mg/dL (8.7-10.3); Carbon Dioxide 22.4 mmol/L (21.6-31.8); Chloride 105 mmol/L (96-109); Glucose 213 mg/dL (70-110); Potassium 4.8 mmol/L (3.5-5.5); Sodium 143 mmol/L (135-145)
--- NOTE | 2024-12-02 11:20 | P.PN ---
Subjective Progress Note Date: 12/02/24 Patient was seen and examined. She reports improvement in her breathing since yesterday. CXR done yesterday showed fluid overloaded state. CTA chest confirmed fluid overloaded state with negative PE. Received Lasix 20 mg IV last night. Denies history of CHF. CBC and BMP significant for WBC 14.05, RBC 4.03, Hg 11, Hct 35.9, AG 15.6, glu 213. A1c 6.8. Lactic acid 1.1. General: no distress, appears at stated age Derm: warm, dry Head: atraumatic, normocephalic, symmetric Eyes: EOMI Mouth: no lip lesion, mucus membranes moist Cardiovascular: Normal S1 S2. No murmurs. Lungs: Decreased BS bilaterally, no accessory muscle use Ext: no gross muscle atrophy, no edema, no contractures Neuro: No FND Psych: AO x 3 Based on my assessment of this patient, this patient meets a high complexity level of care. Dyspnea secondary to pulmonary vascular congestion: Lasix 40 mg IV x 1 today. Obtain Echo. Strict intake and outtake. Daily weights. SIRS: Tachycardia with leukocytosis. No signs of active infection. Likely related to above. Monitor fever profile. Elevated D-Dimer: CTA negative for PE. Normocytic anemia: Chronic. Recommend age appropriate CA screenings. DM: A1c 6.8. ARISTIDES with Accuchecks ACHS along with hypoglycemic precautions. HLD: Lipitor 20 mg PO QD. Depression: Zoloft 200 mg PO QD. History of diverticulitis in 2020 Deafness of left ear with cochlear implant History of basal cell carcinoma s/p resection in 2021 Left bimalleolar ankle fracture s/p open reduction and internal fixation POD 1 management per Orthopedic surgery CODE STATUS: FULL CODE DVT Prophylaxis: Lovenox SQ GI Prophylaxis: Designated medical POA if patient is not able to make medical decisions for themselves: I have reviewed the following data migration consultant notes: I have reviewed the results of the following tests: CBC, BMP, A1c, Lactic acid, CTA chest. I have ordered the following tests: Echo. I have discussed the care of this patient with the following independent historian: I have independently interpreted the following test below: CXR I have discussed the management of this patient with the following physician: Objective - Vital Signs Vital signs: Vital Signs Temp 98.2 F 12/02/24 06:54 Pulse 92 12/02/24 06:54 Resp 20 12/02/24 06:54 BP 134/56 12/02/24 06:54 Pulse Ox 98 12/02/24 09:41 FiO2 Intake & Output 12/01/24 12/02/24 12/02/24 18:59 06:59 18:59 Intake Total 800 240 Output Total 5 Balance 795 240 Weight 95.45 kg Intake: IV 800 Oral 240 Output: Estimated Blood Loss 5 Other: Voiding Method External Catheter # Voids 0 2 # Bowel Movements 1 - Labs CBC & Chem 7: 12/02/24 02:17 12/02/24 02:10 Labs: Abnormal Lab Results - Last 24 Hours (Table) 12/01/24 12/01/24 12/01/24 Range/Units 13:38 16:03 20:13 WBC (4.50-10.00) X 10*3/uL RBC (4.10-5.20) X 10*6/uL Hgb (12.0-15.0) g/dL Hct (37.2-46.3) % MCHC (32.0-37.0) g/dL RDW (11.5-14.5) % Immature Gran # (0.00-0.04) X 10*3/uL Neutrophils # (1.80-7.70) X 10*3/uL Lymphocytes # (0.90-5.00) X 10*3/uL Eosinophils # (0.04-0.35) X 10*3/uL D-Dimer (<0.60) mg/L FEU Sodium (137-145) mmol/L Carbon Dioxide (22-30) mmol/L Anion Gap (4.00-12.00) mmol/L BUN (7-17) mg/dL Est GFR (CKD-EPI) (>=60) Glucose (74-99) mg/dL POC Glucose (mg/dL) 135 H 149 H 168 H (70-110) mg/dL Hemoglobin A1c (<=6.0) % 12/01/24 12/01/24 12/01/24 Range/Units 21:50 21:50 21:50 WBC 12.96 H (4.50-10.00) X 10*3/uL RBC 3.83 L (4.10-5.20) X 10*6/uL Hgb 10.4 L (12.0-15.0) g/dL Hct 33.7 L (37.2-46.3) % MCHC 30.9 L (32.0-37.0) g/dL RDW 15.5 H (11.5-14.5) % Immature Gran # 0.10 H (0.00-0.04) X 10*3/uL Neutrophils # 10.64 H (1.80-7.70) X 10*3/uL Lymphocytes # (0.90-5.00) X 10*3/uL Eosinophils # (0.04-0.35) X 10*3/uL D-Dimer 4.36 H (<0.60) mg/L FEU Sodium 134 L (137-145) mmol/L Carbon Dioxide 20 L (22-30) mmol/L Anion Gap (4.00-12.00) mmol/L BUN 21 H (7-17) mg/dL Est GFR (CKD-EPI) (>=60) Glucose 172 H (74-99) mg/dL POC Glucose (mg/dL) (70-110) mg/dL Hemoglobin A1c (<=6.0) % 12/02/24 12/02/24 12/02/24 Range/Units 02:10 02:17 02:17 WBC 14.05 H (4.50-10.00) X 10*3/uL RBC 4.03 L (4.10-5.20) X 10*6/uL Hgb 11.0 L (12.0-15.0) g/dL Hct 35.9 L (37.2-46.3) % MCHC 30.6 L (32.0-37.0) g/dL RDW 15.8 H (11.5-14.5) % Immature Gran # 0.20 H (0.00-0.04) X 10*3/uL Neutrophils # 12.21 H (1.80-7.70) X 10*3/uL Lymphocytes # 0.59 L (0.90-5.00) X 10*3/uL Eosinophils # 0.01 L (0.04-0.35) X 10*3/uL D-Dimer (<0.60) mg/L FEU Sodium (137-145) mmol/L Carbon Dioxide (22-30) mmol/L Anion Gap 15.60 H (4.00-12.00) mmol/L BUN (7-17) mg/dL Est GFR (CKD-EPI) 58 L (>=60) Glucose 213 H (74-99) mg/dL POC Glucose (mg/dL) (70-110) mg/dL Hemoglobin A1c 6.8 H (<=6.0) % 12/02/24 Range/Units 06:15 WBC (4.50-10.00) X 10*3/uL RBC (4.10-5.20) X 10*6/uL Hgb (12.0-15.0) g/dL Hct (37.2-46.3) % MCHC (32.0-37.0) g/dL RDW (11.5-14.5) % Immature Gran # (0.00-0.04) X 10*3/uL Neutrophils # (1.80-7.70) X 10*3/uL Lymphocytes # (0.90-5.00) X 10*3/uL Eosinophils # (0.04-0.35) X 10*3/uL D-Dimer (<0.60) mg/L FEU Sodium (137-145) mmol/L Carbon Dioxide (22-30) mmol/L Anion Gap (4.00-12.00) mmol/L BUN (7-17) mg/dL Est GFR (CKD-EPI) (>=60) Glucose (74-99) mg/dL POC Glucose (mg/dL) 168 H (70-110) mg/dL Hemoglobin A1c (<=6.0) %
[2024-12-02 12:06] LABS: Glucose,Whole Blood 157 mg/dL (70-110)
[2024-12-02 16:49] LABS: Glucose,Whole Blood 156 mg/dL (70-110)
[2024-12-02] MEDS ORDERED: hydrOXYzine HCL 25 MG TAB PO PRN (17:48)
[2024-12-02 20:17] LABS: Glucose,Whole Blood 152 mg/dL (70-110)
[2024-12-02] MEDS: PANTOPRAZOLE 40 MG TABLET PO SCH (20:19)
[2024-12-03 06:21] LABS: Glucose,Whole Blood 150 mg/dL (70-110)
[2024-12-03] MEDS: CHOLECALCIFEROL 25 MCG (1000 IU) TABLET PO SCH (08:14)
[2024-12-03] MEDS: FERROUS SULFATE 325 MG TAB PO SCH (08:14)
[2024-12-03 11:40] LABS: Glucose,Whole Blood 153 mg/dL (70-110)
[2024-12-03 17:04] LABS: Glucose,Whole Blood 195 mg/dL (70-110)
[2024-12-03 20:06] LABS: Glucose,Whole Blood 157 mg/dL (70-110)
[2024-12-03 20:42] LABS: Glucose,Whole Blood 169 mg/dL (70-110)
[2024-12-03 21:40] LABS: Bilirubin,Urine Negative (Negative); Blood,Urine Negative (Negative); Color,Urine Yellow; Glucose,Urine (UA) Negative (Negative); Ketones,Urine Negative (Negative); Leukocyte Esterase,Urine Small (Negative); Nitrite,Urine Negative (Negative); PH, Urine 5.5 (5.0-8.0); Protein,Urine Negative (Negative); RBC,Urine <1 /hpf (0-5); Specific Gravity,Urine 1.024 (1.001-1.035); Squamous Epithelial Cell,Urine 3 /hpf (0-4); Urobilinogen,Urine <2.0 mg/dL (<2.0); WBC,Urine 4 /hpf (0-5)
--- NOTE | 2024-12-04 02:44 | PN ---
PROGRESS NOTE DATE OF SERVICE: 12/03/2024 HISTORY OF PRESENT ILLNESS: This 79-year-old woman with a past medical history of multiple medical problems including diabetes mellitus, type 2, TIA, and was admitted with displaced left bimalleolar ankle fracture. The patient underwent open reduction and internal fixation of the left bimalleolar ankle fracture. Possible ECF rehab is being planned at this time. There is no history of fever, rigors. PAST MEDICAL HISTORY: Reviewed. REVIEW OF SYSTEMS: 14-point review of systems is as mentioned earlier. CURRENT MEDICATIONS: Reviewed. PHYSICAL EXAMINATION: VITAL SIGNS: Pulse is 95, blood pressure ntd, respirations 18. HEENT: Conjunctivae normal. NECK: No JVD. CARDIOVASCULAR: S1, S2. ABDOMEN: Soft, nontender. LEGS: Status post left ankle arthroplasty. LABS: WBC 14.0, hemoglobin 11. Other labs are noted. ASSESSMENT: 1. Status post left bimalleolar ankle fracture and ORIF. 2. Increased WBC, possibly reactive. 3. Diabetes mellitus, type 2. 4. CVA and TIA. 5. GERD. 6. Hyperlipidemia. 7. History of pneumonia. RECOMMENDATIONS AND DISCUSSION: Recommend to continue current management and symptomatic treatment otherwise. The patient had a chest CTA, which showed some fluid overload. Reviewed the films personally, and the patient received 1 dose of IV diuretics. I would recommend repeat labs in the morning and chest x-ray also. Further recommendations to follow. MEAGHANL / JUNE: [id number] / MTDD
[2024-12-04 06:38] LABS: Basophils # (A) 0.04 10*3/uL (0.00-0.10); Basophils % (A) 0.4 %; Eosinophils # (A) 0.14 10*3/uL (0.04-0.35); Eosinophils % (A) 1.4 %; HCT 31.8 % (37.2-46.3); HGB 10.0 g/dL (12.0-15.0); Lymphocytes # (A) 1.65 10*3/uL (0.90-5.00); Lymphocytes % (A) 16.5 %; MCH 27.1 pg (27.0-32.0); MCHC 31.4 g/dL (32.0-37.0); MCV 86.2 fL (80.0-97.0); Monocytes # (A) 1.05 10*3/uL (0.20-1.00); Monocytes % (A) 10.5 %; Neutrophils # (A) 7.07 10*3/uL (1.80-7.70); Neutrophils % (A) 70.5 %; Platelet Count 316 10*3/uL (140-440); RBC 3.69 10*6/uL (4.10-5.20); RDW 15.1 % (11.5-14.5); WBC 10.02 10*3/uL (4.50-10.00)
[2024-12-04 06:46] LABS: Glucose,Whole Blood 157 mg/dL (70-110)
[2024-12-04 06:54] LABS: African American GFR (CKD) 88 (>60 ml/min/1.73 sqM); Anion Gap 5 mmol/L; Blood Urea Nitrogen 23 mg/dL (7-17); Calcium 9.1 mg/dL (8.4-10.2); Carbon Dioxide 31 mmol/L (22-30); Chloride 99 mmol/L (98-107); Glucose 150 mg/dL (74-99); Non-African American GFR(CKD) 77 (>60 ml/min/1.73 sqM); Potassium 4.0 mmol/L (3.5-5.1); Sodium 135 mmol/L (137-145)
--- NOTE | 2024-12-04 07:23 | XR ---
EXAMINATION TYPE: XR chest 1V portable DATE OF EXAM: 12/04/2024 5:32 AM COMPARISON: Chest radiographs from 12/01/2024, CTA chest 12/01/2024 TECHNIQUE: XR chest 1V portable Portable AP radiograph of the chest. CLINICAL INDICATION:Female, 79 years old with history of chf; FINDINGS: Lungs/Pleura: There is no evidence of pleural effusion, focal consolidation, or pneumothorax. Pulmonary vascularity: Improved pulmonary vascular congestion from prior radiograph. Heart/mediastinum: Cardiomediastinal silhouette is enlarged and stable. Atherosclerotic calcificatio ns are seen in the aorta. Musculoskeletal: No acute osseous pathology. Bilateral shoulder arthropathy. IMPRESSION: Improving CHF exacerbation. [facility], , 12/04/2024 7:21 AM
[2024-12-04] MEDS: METOPROLOL SUCCINATE (ER) 25 MG TAB.ER.24H PO SCH (08:55)
[2024-12-04] MEDS: ASPIRIN 81 MG PO SCH (08:55)
[2024-12-04] MEDS: ISOSORBIDE MONONITRATE ER 30 MG TAB.ER.24H PO SCH (11:00)
[2024-12-04] MEDS: LOSARTAN 25 MG TAB PO SCH (11:00)
--- NOTE | 2024-12-04 11:06 | CA ---
Transthoracic Echo Report Name: Ingris Macdonald Age: 79 Gender: F : 1945 Exam Date: 12/04/2024 08:26 Exam Location: [facility] Ht (in): 63 Wt (lb): 210 Ordering Physician: Deysi Corado MD Attending/Referring Phys: T[employer] Edge Machine Operator Tennille Brandon RDCS Procedure CPT: Indications: sob Cardiac Hx: Technical Quality: Technically difficult study Contrast 1: Definity Total Dose (mL): 2 Contrast 2: Total Dose (mL): MEASUREMENTS (Male / Female) Normal Values 2D ECHO LV Diastolic Diameter PLAX 4.7 cm 4.2 - 5.9 / 3.9 - 5.3 cm LV Systolic Diameter PLAX 3.0 cm IVS Diastolic Thickness 1.4 cm 0.6 - 1.0 / 0.6 - 0.9 cm LVPW Diastolic Thickness 1.3 cm 0.6 - 1.0 / 0.6 - 0.9 cm LV Relative Wall Thickness 0.6 LA Systolic Diameter LX 3.8 cm 3.0 - 4.0 / 2.7 - 3.8 cm LV Diastolic Volume MOD BP 119.1 cm??? 67 - 155 / 56 - 104 cm??? LV Systolic Volume MOD BP 89.8 cm??? 22 - 58 / 19 - 49 cm??? LV Ejection Fraction MOD BP 24.6 % >= 55 % LV Cardiac Index MOD BP 1253.2 cm???/min???m??? LV Diastolic Volume MOD 4C 116.9 cm??? LV Systolic Volume MOD 4C 90.4 cm??? LV Ejection Fraction MOD 4C 22.6 % LV Cardiac Index MOD 4C 1131.6 cm???/min???m??? LV Diastolic Length 4C 8.1 cm LV Systolic Length 4C 7.9 cm LV Diastolic Volume MOD 2C 116.4 cm??? LV Systolic Volume MOD 2C 89.2 cm??? LV Ejection Fraction MOD 2C 23.3 % LV Cardiac Index MOD 2C 1161.3 cm???/min???m??? LV Diastolic Length 2C 8.7 cm LV Systolic Length 2C 7.9 cm DOPPLER AV Peak Velocity 117.8 cm/s AV Peak Gradient 5.6 mmHg Mitral E Point Velocity 124.1 cm/s Mitral A Point Velocity 130.5 cm/s Mitral E to A Ratio 1.0 MV Deceleration Time 212.4 ms MV E' Velocity 4.1 cm/s Mitral E to MV E' Ratio 30.3 TR Peak Velocity 252.4 cm/s TR Peak Gradient 25.5 mmHg Right Ventricular Systolic Press 35.5 mmHg FINDINGS Left Ventricle Left ventricular ejection fraction is estimated at 25-30 %. Left ventricular cavity size normal. The apex and adjoining are akinetic, the rest of the ventricle is hypokinetic.Mildly increased left ventricular wall thickness. Right Ventricle Normal right ventricular size. Mild pulmonary hypertension. Right Atrium Normal right atrial size. No right atrial thrombus or mass seen. Left Atrium LV valume moderatly increase. No left atrial thrombus or mass present. Mitral Valve Mitral valve thickened. Moderate mitral annular calcification.mild mitral regurgitation. Aortic Valve Aortic valve not well visualized. No aortic valve stenosis or regurgitation. Tricuspid Valve Structurally normal tricuspid valve. Mild tricuspid regurgitation. Pulmonic Valve Pulmonic valve not well visualized. No pulmonic regurgitation. Pericardium No pericardial effusion. Aorta Normal size aortic root and proximal ascending aorta. CONCLUSIONS Technically difficult study. Definity ECHO contrast used for improved visualization of the endocardial borders (inadequate visualization of two or more contiguous segments). Severely impaired left ventricular systolic function with segmental wall motion abnormality mild mitral and tricuspid regurgitation with mild pulmonary hypertension Previewed by: Dr. Abiodun Maya MD (Electronically Signed) Final Date: 04 December 2024 11:05
[2024-12-04 11:14] LABS: Glucose,Whole Blood 161 mg/dL (70-110)
--- NOTE | 2024-12-04 12:41 | P.CRDCN ---
History of Present Illness Consult date: 12/04/24 Requesting physician: Polo E Sheet Reason for Consult (text): Elevated troponins History of present illness: HISTORY OF PRESENT ILLNESS: Patient is a 79 year old female with past medical history of Diabetes, CVA/TIA, GERD, Hyperlipidemia who underwent elective Open reduction with internal fixation left bimalleolar ankle fracture for Displaced left bimalleolar ankle fracture. 2 weeks ago the patient had a fall as her ankle gave out. Her mentioned that he tried to brace her as she was falling and slowed down the fall, she did not hit her head or lose consciousness. She was then sent to Dr. Vazquez for preop clearance. Lexiscan stress test 11/29/24 showed ischemic cardiomyopathy with severe LV dysfunction without any ischemia, inconclusive EKG portion of the stress test due to baseline EKG abnormalities. She was high risk for periop cardiac event given the ischemic cardiomyopathy with severe LV systo lic dysfunction. Discussed with the patient about her treatment options including proceeding with cardiac catheterization addressing underlying cardiac issues before she goes to surgery versus going through surgery and addressing the cardiac issues afterwards. Patient and her wanted to moved forward with the surgery understanding that its a high risk surgery. She reported 7/10 non radiating burning chest pain after the surgery, that resolved in a couple hours. Patient seen today under cardiological consultation for elevated troponin. Today she reports feeling better. Denies any new complaints. Home medication includes atorvastatin 20 mg p.o. at bedtime Vitals: Temperature 98.3 F, NC 82 bpm, RR 29, BP 139/72, O2 sat 99% on 2L NC Labs: WBC 10.02, hemoglobin 10, hematocrit 31.8, sodium 135, potassium 4.0, creatinine 0.75, A1c 6.8, NT proBNP 5720, Troponin 0.979, 0.757, 0.715 EKG: sinus tachycardia with rate 102 bpm, QTc 442 ms Imaging: Chest x-ray on 12/01/2024 shows suspect fluid overload state, corelate clinically. Chest CTA on 12/01/[address] evidence for acute pulmonary embolism, findings consistent with fluid overload state Chest x-ray 12/04/2024 shows improving CHF exacerbation Echocardiogram obtained on 12/04/2024 showed EF 25 to 30% with severely impaired LV systolic function with segmental wall motion abnormality, mild mitral and tricuspid regurgitation with mild pulmonary hypertension Lexiscan stress test 11/29/24 showed ischemic cardiomyopathy with severe LV dysfunction without any ischemia, inconclusive EKG portion of the stress test due to baseline EKG abnormalities. REVIEW OF SYSTEMS: 14 point review of system is negative except what is mentioned above in HPI. PHYSICAL EXAMINATION: Neck: Brisk carotid upstroke, no jugular venous distention. Lungs: Clear to auscultation. Heart: Regular pulse Abdomen: Soft, mildly distended, hypoactive bowel sounds Extremities: No edema, intact distal pulses. Neuro: Alert, oritented, no focal deficits. Detailed neuro exam was not performed. ASSESSMENT: # Acute NSTEMI # Ischemic cardiomyopathy with EF 25-30% # Displaced left bimalleolar ankle fracture S/p Open reduction with internal fixation left bimalleolar ankle fracture # Diabetes mellitus # Hyperlipidemia # Hypertension # History of CVA/TIA # History of tobacco use PLAN: Medical management with aspirin 81 mg p.o. daily, Lipitor 40 mg p.o. at bedtime, metoprolol 25 mg p.o. daily Start losartan 25 mg p.o. daily, Imdur 30 mg p.o. daily Plan for cardiac cath tomorrow after discussing with the surgeon. If not, follow up outpatient and schedule cardiac cath at a later date. NPO after midnight diet Dictation was produced using [employer] dictation software. please excuse any grammatical, word or spelling errors. Margarita Fried MD PGY-2 IM I saw and evaluated the patient during the keenan and critical portions of this encounter, and discussed the case in detail with the resident author of this note, I agree with the Assessment and Plan. Past Medical History Past Medical History: Cancer, CVA/TIA, Diabetes Mellitus, GERD/Reflux, Hearing Disorder / Deafness, Hyperlipidemia, Osteoarthritis (OA), Pneumonia Additional Past Medical History / Comment(s): Basal Cell Skin Cancer removed from left posterior shoulder , migraines, December 1997 TIA-no residual e ffects, sciatica right leg, low back pain, diverticulitis., deaf left ear with cochlear implant, GERD & heartburn w/pain in chest since September,. anemia, fell and fractured Lt. ankle 11/19/24 History of Any Multi-Drug Resistant Organisms: None Reported Past Surgical History: Hysterectomy, Tubal Ligation Additional Past Surgical History / Comment(s): basal cell cancer removed left posterior shoulder jun 2021., lasik eye sx, cochlear implant Lt, deviated septum surgery Past Anesthesia/Blood Transfusion Reactions: No Reported Reaction Additional Past Anesthesia/Blood Transfusion Reaction / Comment(s): mild claustrophobia Past Psychological History: Anxiety, Depression Additional Psychological History / Comment(s): states she took sertraline due to hyperactive son and just stayed on the med. Smoking Status: Former smoker Past Alcohol Use History: Rare Additional Past Alcohol Use History / Comment(s): started smoking age 18(1963) , quit age 28(1973) smoked 1/2 ppd Past Drug Use History: None Reported - Past Family History Mother Family Medical History: Cancer, Coronary Artery Disease (CAD) Additional Family Medical History / Comment(s): breast cancer. triple vessel cabg- age 95 Father Family Medical History: Cancer Additional Family Medical History / Comment(s): age 62 Medications and Allergies Home Medications Medication Instructions Recorded Confirmed Type Glimepiride [Amaryl] 4 mg PO W/SUPPER 05/06/18 12/01/24 History Sertraline HCl [Zoloft] 200 mg PO DAILY 07/21/20 12/01/24 History metFORMIN HCL [Glucophage] 2,000 mg PO HS 06/24/21 12/01/24 History Atorvastatin [Lipitor] 20 mg PO HS 11/27/22 12/01/24 History Multivit-Min/FA/Lycopen/Lutein 1 tab PO HS 11/27/22 12/01/24 History [Centrum Silver Tablet] Pioglitazone [Actos] 45 mg PO HS 11/27/22 12/01/24 History Bismuth Subsalicylate 262 mg PO DIRECTED PRN 11/15/24 12/01/24 History [Pepto-Bismol] Cholecalciferol [Vitamin D3 (25 25 mcg PO DAILY 11/15/24 12/01/24 History Mcg = 1000 Iu)] Dicyclomine HCl 20 mg PO DIRECTED PRN 11/15/24 12/01/24 History Ferrous Sulfate [Feosol] 65 mg PO DAILY 11/15/24 12/01/24 History HYDROcodone/APAP 5-325MG [[place] 2 tab PO Q4H PRN 11/15/24 12/01/24 History 5-325] Krill/Om-3/Dha/Epa/Phospho/Ast 1 each PO DAILY 11/15/24 12/01/24 History [Megared [place]-3 Krill 1,000 mg] Pantoprazole [Protonix] 40 mg PO HS 11/15/24 12/01/24 History Qunol 1 tab PO DAILY 11/15/24 12/01/24 History diazePAM [Valium] 2 mg PO DIRECTED PRN 11/15/24 12/01/24 History Allergies Allergy/AdvReac Type Severity Reaction Status Date / Time Sulfa (Sulfonamide AdvReac Intermediate Nausea Verified 12/01/24 09:42 Antibiotics) mold AdvReac Unknown throat Verified 12/01/24 09:42 irritation prednisone AdvReac anxious, Verified 12/01/24 09:42 jittery smoke AdvReac Unknown throat Uncoded 12/01/24 09:42 irritation Physical Exam Vitals: Vital Signs Temp Pulse Pulse Resp BP BP Pulse Ox 12/04/24 04:00 96 25 H 135/78 100 12/04/24 03:00 96 23 135/78 100 12/04/24 02:00 94 22 135/78 99 12/04/24 01:00 98 22 135/78 98 12/04/24 00:30 100 24 135/78 98 12/04/24 00:00 103 H 21 98 12/03/24 23:30 102 H 25 H 97 12/03/24 23:00 111 H 26 H 97 12/03/24 22:30 120 H 12 92 L 12/03/24 22:00 114 H 32 H 132/72 88 L 12/03/24 21:30 109 H 21 132/72 91 L 12/03/24 21:00 110 H 18 132/72 93 L 12/03/24 20:41 111 H 23 94 L 12/03/24 17:31 98.5 F 103 H 19 129/74 96 12/03/24 13:11 99.0 F 95 18 118/65 94 L Intake and Output 12/03/24 12/04/24 12/04/24 22:59 06:59 14:59 Other: Voiding Method External Catheter External Catheter Weight 98.7 kg Results 12/04/24 06:07 12/04/24 06:07 Cardiac Enzymes 12/03/24 12/03/24 12/03/24 Range/Units 16:05 18:49 22:13 Troponin I 0.979 H* 0.757 H* 0.715 H* (0.000-0.034) ng/mL CBC 12/04/24 Range/Units 06:07 WBC 10.02 H (4.50-10.00) 10*3/uL RBC 3.69 L (4.10-5.20) 10*6/uL Hgb 10.0 L (12.0-15.0) g/dL Hct 31.8 L (37.2-46.3) % Plt Count 316 (140-440) 10*3/uL Comprehensive Metabolic Panel 12/04/24 Range/Units 06:07 Sodium 135 L (137-145) mmol/L Potassium 4.0 (3.5-5.1) mmol/L Chloride 99 (98-107) mmol/L Carbon Dioxide 31 H (22-30) mmol/L BUN 23 H (7-17) mg/dL Creatinine 0.75 (0.52-1.04) mg/dL Glucose 150 H (74-99) mg/dL Calcium 9.1 (8.4-10.2) mg/dL Current Medications Generic Name Dose Route Start Last Admin Trade Name Freq PRN Reason Stop Dose Admin Hydrocodone Bitart/Acetaminophen 1 each 12/01/24 13:24 12/04/24 04:04 Hydrocodone/Apap 5-325mg 1 Each Tab PO 12/31/24 13:23 1 each Q6HR PRN Administration Pain Scale 1 to 5 Albuterol/Ipratropium 3 ml 12/01/24 20:05 12/01/24 20:27 Ipratropium-Albuterol 3 Ml Neb INHALATION 3 ml RT-QID PRN Administration Shortness Of Breath Or Wheezing Aspirin 81 mg 12/04/24 09:00 Aspirin 81 Mg PO DAILY PAUL Atorvastatin Calcium 40 mg 12/04/24 21:00 Atorvastatin 40 Mg Tab PO HS PAUL Cholecalciferol 25 mcg 12/03/24 09:00 12/03/24 08:14 Cholecalciferol 25 Mcg (1000 Iu) Tablet PO 25 mcg DAILY PAUL Administration Dextrose/Water 25 ml 12/01/24 19:16 Dextrose 50% Syringe 50 Ml IVP PER PROTOCOL PRN Hypoglycemia Protocol Dextrose/Water 50 ml 12/01/24 19:16 Dextrose 50% Syringe 50 Ml IVP PER PROTOCOL PRN Hypoglycemia Protocol Dicyclomine HCl 20 mg 12/01/24 19:11 Dicyclomine 20 Mg Tab PO DAILY PRN abd. spasm Enoxaparin Sodium 40 mg 12/02/24 09:00 12/03/24 08:14 Enoxaparin 40 Mg/0.4 Ml Syringe SQ 01/01/25 08:59 40 mg DAILY PAUL Administration Ferrous Sulfate 325 mg 12/03/24 09:00 12/03/24 08:14 Ferrous Sulfate 325 Mg Tab PO 325 mg DAILY PAUL Administration Hydromorphone HCl 0.125 mg 12/01/24 13:24 Hydromorphone 0.5 Mg/0.5 Ml Syringe IVP 12/31/24 13:23 Q3HR PRN Pain Scale 1 to 3 Hydromorphone HCl 0.25 mg 12/01/24 13:24 Hydromorphone 0.5 Mg/0.5 Ml Syringe IVP 12/31/24 13:23 Q3HR PRN Pain Scale 4 to 6 Hydromorphone HCl 0.5 mg 12/01/24 13:24 12/03/24 21:48 Hydromorphone 0.5 Mg/0.5 Ml Syringe IVP 12/31/24 13:23 0.5 mg Q3HR PRN Administration Pain Scale 7 to 10 Hydroxyzine HCl 25 mg 12/02/24 17:48 Hydroxyzine Hcl 25 Mg Tab PO QID PRN Anxiety Lactated Ringer's 1,000 mls @ 20 mls/hr 12/01/24 09:29 12/03/24 12:07 Lactated Ringers IV 12/31/24 09:28 Not Given .Q24H [facility] Insulin Human Lispro 0 unit 12/01/24 21:00 12/04/24 07:01 Insulin Lispro (Humalog) 100 Unit/Ml 10 Ml Vl SQ 3 unit ACHS PAUL Administration Protocol Lidocaine HCl 0.1 ml 12/01/24 09:29 Lidocaine 1% (10mg/Ml) For Iv Start INTRADERMA 12/31/24 09:28 PER PROTOCOL PRN IV Start Metoprolol Succinate 25 mg 12/04/24 09:00 Metoprolol Succinate (Er) 25 Mg Tab.Er.24h PO DAILY [facility] Ondansetron HCl 4 mg 12/01/24 13:24 12/01/24 21:54 Ondansetron 4 Mg/2 Ml Vial IVP 12/31/24 13:23 4 mg DAILY PRN Administration Nausea And Vomiting Pantoprazole Sodium 40 mg 12/02/24 21:00 12/03/24 20:25 Pantoprazole 40 Mg Tablet PO 40 mg HS PAUL Administration Sertraline HCl 200 mg 12/02/24 09:00 12/03/24 08:14 Sertraline 100 Mg Tab PO 200 mg DAILY PAUL Administration Intake and Output 12/03/24 12/04/24 12/04/24 22:59 06:59 14:59 Other: Voiding Method External Catheter External Catheter Weight 98.7 kg 12/04/24 06:07 12/04/24 06:07
[2024-12-04] MEDS ORDERED: ALPRAZolam 0.5 MG TAB PO PRN (12:54)
[2024-12-04] MEDS ORDERED: NITROGLYCERIN SL TABS 0.4 MG TAB SUBLINGUAL PRN (12:54)
[2024-12-04] MEDS ORDERED: ALPRAZolam 0.25 MG TAB PO PRN (12:54)
[2024-12-04] MEDS: SODIUM CHLORIDE 0.9% 1,000 ML in EMPTY BAG 1 BAG IV SCH (14:48)
[2024-12-04 17:40] LABS: Glucose,Whole Blood 265 mg/dL (70-110)
[2024-12-04] MEDS: GLIMEPIRIDE 4 MG TAB PO SCH (17:46)
[2024-12-04 20:37] LABS: Glucose,Whole Blood 208 mg/dL (70-110)
[2024-12-04] MEDS: PIOGLITAZONE 45 MG TAB PO SCH (20:39)
[2024-12-04] MEDS: ATORVASTATIN 40 MG TAB PO SCH (20:40)
[2024-12-04] MEDS: MULTIVITAMINS, THERA 1 EACH TAB PO SCH (20:40)
[2024-12-05 06:16] LABS: Glucose,Whole Blood 111 mg/dL (70-110)
[2024-12-05] MEDS: ASPIRIN 325 MG TAB PO ONE (06:17)
[2024-12-05 06:25] LABS: Basophils # (A) 0.03 10*3/uL (0.00-0.10); Basophils % (A) 0.3 %; Eosinophils # (A) 0.19 10*3/uL (0.04-0.35); Eosinophils % (A) 2.1 %; HCT 31.5 % (37.2-46.3); HGB 9.7 g/dL (12.0-15.0); Lymphocytes # (A) 2.30 10*3/uL (0.90-5.00); Lymphocytes % (A) 24.8 %; MCH 26.6 pg (27.0-32.0); MCHC 30.8 g/dL (32.0-37.0); MCV 86.3 fL (80.0-97.0); Monocytes # (A) 0.99 10*3/uL (0.20-1.00); Monocytes % (A) 10.7 %; Neutrophils # (A) 5.68 10*3/uL (1.80-7.70); Neutrophils % (A) 61.3 %; Platelet Count 299 10*3/uL (140-440); RBC 3.65 10*6/uL (4.10-5.20); RDW 15.2 % (11.5-14.5); WBC 9.26 10*3/uL (4.50-10.00)
[2024-12-05 06:36] LABS: African American GFR (CKD) 62 (>60 ml/min/1.73 sqM); Anion Gap 6 mmol/L; Blood Urea Nitrogen 34 mg/dL (7-17); Calcium 9.1 mg/dL (8.4-10.2); Carbon Dioxide 29 mmol/L (22-30); Chloride 101 mmol/L (98-107); Glucose 97 mg/dL (74-99); Non-African American GFR(CKD) 54 (>60 ml/min/1.73 sqM); Potassium 4.0 mmol/L (3.5-5.1); Sodium 136 mmol/L (137-145)
[2024-12-05] MEDS: ATORVASTATIN 80 MG TAB PO ONE (06:41)
[2024-12-05] MEDS ORDERED: HEPARIN SODIUM,PORCINE (1 ML) 2,500 UNIT in SODIUM CHLORIDE 0.9% 250 ML IRRIGATION PRN (07:00)
[2024-12-05] MEDS ORDERED: HEPARIN SODIUM,PORCINE 10,000 UNIT in SODIUM CHLORIDE 0.9% 1,000 ML IRRIGATION PRN (07:00)
[2024-12-05] MEDS: HEPARIN SODIUM (1,000 UNIT/ML) 1,000 UNIT in SODIUM CHLORIDE 0.9% 1,000 ML IRRIGATION ONE (09:07)
[2024-12-05] MEDS: IV FLUID CONTINUATION 1,000 ML IV ONE (09:07)
[2024-12-05] MEDS: HEPARIN SODIUM,PORCINE (1 ML) 2,500 UNIT in SODIUM CHLORIDE 0.9% 250 ML IRRIGATION ONE (09:07)
[2024-12-05] MEDS: MIDAZOLAM 2 MG/2 ML VIAL IVP ONE (09:13)
[2024-12-05] MEDS: fentaNYL (PF) 50 MCG/ML 2 ML AMP IVP ONE (09:14)
[2024-12-05] MEDS: LIDOCAINE 1% INJ 10MG/ML (20 ML MDV) SQ ONE (09:15)
[2024-12-05] MEDS: IOPAMIDOL-370 100ML BTL INJ ONE (09:38)
--- NOTE | 2024-12-05 09:57 | P.PN ---
Subjective Progress Note Date: 12/05/24 Principal diagnosis: HISTORY OF PRESENT ILLNESS: Patient is a 79 year old female with past medical history of Diabetes, CVA/TIA, GERD, Hyperlipidemia who underwent elective Open reduction with internal fixation left bimalleolar ankle fracture for Displaced left bimalleolar ankle fracture. 2 weeks ago the patient had a fall as her ankle gave out. Her mentioned that he tried to brace her as she was falling and slowed down the fall, she did not hit her head or lose consciousness. She was then sent to Dr. Vazquez for preop clearance. Lexiscan stress test 11/29/24 showed ischemic cardiomyopathy with severe LV dysfunction without any ischemia, inconclusive EKG portion of the stress test due to baseline EKG abnormalities. She was high risk for periop cardiac event given the ischemic cardiomyopathy with severe LV systolic dysfunction. Discussed with the patient about her treatment options including proceeding with cardiac catheterization addressing underlying cardiac issues before she goes to surgery versus going through surgery and addressing the cardiac issues afterwards. Patient and her wanted to moved forward with the surgery understanding that its a high risk surgery. She reported 7 non radiating burning chest pain after the surgery, that resolved in a couple hours. Patient seen today under cardiological consultation for elevated troponin. Today she reports feeling better. Denies any new complaints. Home medication includes atorvastatin 20 mg p.o. at bedtime Vitals: Temperature 98.3 F, CT 82 bpm, RR 29, BP 139/72, O2 sat 99% on 2L NC Labs: WBC 10.02, hemoglobin 10, hematocrit 31.8, sodium 135, potassium 4.0, creatinine 0.75, A1c 6.8, NT proBNP 5720, Troponin 0.979, 0.757, 0.715 EKG: sinus tachycardia with rate 102 bpm, QTc 442 ms Imaging: Chest x-ray on 12/01/2024 shows suspect fluid overload state, corelate clinically. Chest CTA on 12/01/[address] evidence for acute pulmonary embolism, findings consistent with fluid overload state Chest x-ray 12/04/2024 shows improving CHF exacerbation Echocardiogram obtained on 12/04/2024 showed EF 25 to 30% with severely impaired LV systolic function with segmental wall motion abnormality, mild mitral and tricuspid regurgitation with mild pulmonary hypertension Lexiscan stress test 11/29/24 showed ischemic cardiomyopathy with severe LV dysfunction without any ischemia, inconclusive EKG portion of the stress test due to baseline EKG abnormalities. PROGRESS NOTE: 12/05/24: Patient seen and examined at bedside today. She denies any new complaints. She is currently on 2L oxygen via nasal cannula. Hb 9.7, creatinine 1.01 REVIEW OF SYSTEMS: 14 point review of system is negative except what is mentioned above in HPI. PHYSICAL EXAMINATION: Neck: Brisk carotid upstroke, no jugular venous distention. Lungs: Clear to auscultation. Heart: Regular pulse Abdomen: Soft, mildly distended, hypoactive bowel sounds Extremities: No edema, intact distal pulses. Neuro: Alert, oritented, no focal deficits. Detailed neuro exam was not performed. ASSESSMENT: # Acute NSTEMI # Ischemic cardiomyopathy with EF 25-30% # Displaced left bimalleolar ankle fracture S/p Open reduction with internal fixation left bimalleolar ankle fracture # Diabetes mellitus # Hyperlipidemia # Hypertension # History of CVA/TIA # History of tobacco use PLAN: Continue aspirin 81 mg p.o. daily, Lipitor 40 mg p.o. at bedtime, metoprolol 25 mg p.o. daily, losartan 25 mg p.o. daily, Imdur 30 mg p.o. daily Cardiac catheterization scheduled for today with Dr. Vazquez Dictation was produced using [employer] dictation software. please excuse any grammatical, word or spelling errors. Margarita Fried MD PGY-2 IM I saw and evaluated the patient during the keenan and critical portions of this encounter, and discussed the case in detail with the resident author of this note, I agree with the Assessment and Plan. Objective - Vital Signs Vital signs: Vital Signs Temp 97.9 F 12/05/24 08:00 Pulse 64 12/05/24 08:00 Resp 22 12/05/24 08:00 BP 134/61 12/05/24 08:00 Pulse Ox 100 12/05/24 08:00 FiO2 Intake & Output 12/04/24 12/05/24 12/05/24 18:59 06:59 18:59 Intake Total 1000 Output Total 400 100 Balance 600 -100 Weight 99.4 kg Intake: Oral 1000 Output: Urine 400 100 Other: Voiding Method External Catheter External Catheter External Catheter # Voids 1 - Labs CBC & Chem 7: 12/05/24 05:38 12/05/24 05:38 Labs: Abnormal Lab Results - Last 24 Hours (Table) 12/04/24 12/04/24 12/04/24 Range/Units 11:13 17:39 20:36 RBC (4.10-5.20) 10*6/uL Hgb (12.0-15.0) g/dL Hct (37.2-46.3) % MCH (27.0-32.0) pg MCHC (32.0-37.0) g/dL Immature Gran # (0.00-0.04) 10*3/uL Sodium (137-145) mmol/L BUN (7-17) mg/dL POC Glucose (mg/dL) 161 H 265 H 208 H (70-110) mg/dL 12/05/24 12/05/24 12/05/24 Range/Units 05:38 05:38 06:14 RBC 3.65 L (4.10-5.20) 10*6/uL Hgb 9.7 L (12.0-15.0) g/dL Hct 31.5 L (37.2-46.3) % MCH 26.6 L (27.0-32.0) pg MCHC 30.8 L (32.0-37.0) g/dL Immature Gran # 0.07 H (0.00-0.04) 10*3/uL Sodium 136 L (137-145) mmol/L BUN 34 H (7-17) mg/dL POC Glucose (mg/dL) 111 H (70-110) mg/dL Microbiology - Last 24 Hours (Table) 12/02/24 02:10 Blood Culture - Preliminary Blood
[2024-12-05] MEDS ORDERED: RX INFO: IV CONTRAST WAS GIVEN 1 EACH MISC MISCELLANE PRN (10:08)
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
--- NOTE | 2024-12-05 11:55 | US ---
EXAMINATION TYPE: US carotid duplex BILAT DATE OF EXAM: 12/05/2024 COMPARISON: NONE CLINICAL INDICATION: Female, 79 years old with history of preop cardiac surgery; Open Heart Additional History: .... TECHNIQUE: Grayscale, color Doppler and spectral Doppler evaluation of the bilateral carotid systems and vertebral arteries. Indirect Doppler criteria was utilized. FINDINGS: EXAM MEASUREMENTS: RIGHT: Peak Systolic Velocity (PSV) cm/sec ----- Right CCA: 53.7 ----- Right ICA: 76.9 ----- Right ECA: 94.4 ICA/CCA ratio: 1.4 RIGHT: End Diastole cm/sec ----- Right CCA: 8.6 ----- Right ICA: 17.3 ----- Right ECA: 0 LEFT: Peak Systolic Velocity (PSV) cm/sec ----- Left CCA: 62.4 ----- Left ICA: 144.7 ----- Left ECA: 83.8 ICA/CCA ratio: 2.3 LEFT: End Diastole cm/sec ----- Left CCA: 11.5 ----- Left ICA: 36 ----- Left ECA: 0 VERTEBRALS (direction of flow): Right Vertebral: Antegrade Left Vertebral: Antegrade Rhythm: Normal TRANSACTION COORDINATOR NOTES: No significant stenosis seen Color Doppler imaging shows patency with blood flow throughout the carotid artery. Spectral waveforms are within normal limits. IMPRESSION: Right: No hemodynamically significant stenosis. Left: No hemodynamically significant stenosis. Criteria for Assigning % of Stenosis / Diameter reduction (Estimation based on the indirect measurements of the internal carotid artery velocities (ICA PSV). 1. Normal (no stenosis)=ICA PSV < 180 cm/s: ratio < 2.0: ICA EDV<40 cm/s. 2. Less than 50% stenosis=ICA PSV < 180 cm/s: ratio < 2.0: ICA EDV<40 cm/s. 3. 50 to 69% stenosis=ICA PSV of 180 to 230 cm/s: ration 2.0 ? 4.0: ICA EDV 40-100 cm/s. PSV 125-180 cm/sec and ICA/CCA PSV Ratio ? 2.0 is also consistent with 50-69% stenosis 4. Greater than 70% stenosis to near occlusion= ICA PSV > 230 cm/s: ratio > 4.0: ICA EDV > 100 cm/s. 5. Near occlusion= ICA PSV velocities may be low or undetectable: variable ratio and ICA EDV. 6. Total occlusion=unable to detect flow. [facility], , 12/05/2024 11:52 AM
--- NOTE | 2024-12-05 11:55 | US ---
EXAMINATION TYPE: US vein mapping BILAT DATE OF EXAM: 12/05/2024 11:28 AM COMPARISON: NONE CLINICAL INDICATION: Female, 79 years old with history of preop cardiac surgery; Open heart only coul d do left upper leg due to cast on lower leg. , Preop- Cardiac Surgery TECHNIQUE: Grayscale and color Doppler imaging of the lower extremity venous system. SIDE PERFORMED: Bilateral FINDINGS: PATIENT HISTORY: Smoker: previous Heart Disease: no Previous DVT: no Vascular Surgery: no Discoloration: no Hypertension: yes Diabetes: yes Paralysis: no Varicosities: no Edema: no DUPLEX FINDINGS: Greater Saphenous: Color flow seen Lesser Saphenous: Color flow seen Measurements in mm: Right Greater Saphenous: Groin: 7.1 x 6.3 mm High Thigh: 4.7 x 4.1 mm Mid Thigh: 2.9 2.6 mm Above Knee: 5.7 x 4.1 mm Knee: 5.4 x 4.1 mm Below Knee: 3.7 x 2.1 mm Mid Calf: 2.3 x 1.7 mm At Ankle: 2.5 x 1.6 mm Left Greater Saphenous: Groin: 6.0 x 6.6 mm High Thigh: 5.9 x 5.1 mm Mid Thigh: 3.6 x 3.7 mm Above Knee: 3.3 x 3.4 mm Knee: 5.0 x 4.6 mm Below Knee: 4.9 x 3.6 mm Mid Calf: unable to visualize due to cast At Ankle: unable to visualize due to cast. IMPRESSION: 1. No evidence for occlusion. 2. GSV measurements listed above. 3. Performing surgeon to determine viability as conduit. [facility], , 12/05/2024 11:53 AM
--- NOTE | 2024-12-05 11:56 | US ---
EXAMINATION TYPE: Pre-Operative Non-Invasive Evaluation of the hand for Potential Radial Artery Ronnie singletary, Measurements only DATE OF EXAM: 12/05/2024 11:28 AM CLINICAL INDICATION: Female, 79 years old with history of measurements only; open heart, Preop- Cardi ac Surgery TECHNIQUE:Grayscale and color Doppler imaging of the radial artery(s) SIDE PERFORMED: Left FINDINGS: Dominant hand: Right Duplex Findings: Radial Artery: Color flow seen Measurements in mm, transverse view: Left Radial Proximal: 3.1 x 2.7 mm Mid: 2.3 x 2.0 mm Distal: 2.5 x 1.9 mm IMPRESSION: 1. No evidence for vascular occlusion. 2. Measurements as described above. [facility], , 12/05/2024 11:53 AM
[2024-12-05 12:10] LABS: Glucose,Whole Blood 152 mg/dL (70-110)
[2024-12-05 12:32] LABS: ALT 8 U/L (4-34); AST 17 U/L (14-36); African American GFR (CKD) 73 (>60 ml/min/1.73 sqM); Albumin 3.2 g/dL (3.5-5.0); Alkaline Phosphatase 112 U/L (38-126); Anion Gap 8 mmol/L; Blood Urea Nitrogen 31 mg/dL (7-17); Calcium 9.1 mg/dL (8.4-10.2); Carbon Dioxide 27 mmol/L (22-30); Chloride 101 mmol/L (98-107); Glucose 136 mg/dL (74-99); Non-African American GFR(CKD) 64 (>60 ml/min/1.73 sqM); Potassium 4.0 mmol/L (3.5-5.1); Sodium 136 mmol/L (137-145); Total Protein 5.6 g/dL (6.3-8.2)
[2024-12-05 12:44] LABS: INR 1.0 (<1.2); Partial Thromboplastin Time 25.4 sec (22.0-30.0); Prothrombin Time 11.4 sec (10.0-12.5)
--- NOTE | 2024-12-05 12:49 | PN ---
PROGRESS NOTE DATE OF SERVICE: 12/04/2024 SUBJECTIVE: This 79-year-old woman who was admitted after bimalleolar fracture also had transient fluid overload. The patient had elevated troponin and a 2D echo with Doppler shows ejection fraction of 25% to 35% indicative of severe cardiomyopathy. Cardiology is following the patient closely. PAST MEDICAL HISTORY: Reviewed. CURRENT MEDICATIONS: Reviewed. PHYSICAL EXAMINATION: VITAL SIGNS: Pulse is 87, blood pressure 118/60, and respirations 20. HEENT: Conjunctivae normal. CARDIOVASCULAR: S1, S2. CHEST: A few scattered rhonchi. ABDOMEN: Soft. NERVOUS SYSTEM: Nonfocal. LABORATORY DATA: Reviewed. ASSESSMENT: 1. Status post left bimalleolar ankle fracture with open reduction and internal fixation. 2. Elevated troponin up to 0.715. Possible acute [id number] elevation myocardial infarction. 3. Severely impaired left ventricular function with segmental wall motion abnormality, possible ischemic cardiomyopathy. 4. Increased WBC, possibly reactive. 5. Diabetes mellitus, type 2. 6. Cerebrovascular disease, transient ischemic attack. 7. Gastroesophageal reflux disease. 8. Hyperlipidemia. 9. History of pneumonia. RECOMMENDATION: To continue current management and treatment otherwise. At this time, I would recommend closely follow with Cardiology, possible cardiac consultation. The prognosis guarded. Further recommendations to follow. MMODL / IJN: [id number] /
--- NOTE | 2024-12-05 14:23 | CC ---
CARDIAC CATHETERIZATION REPORT INDICATION: Acute non ST-segment elevation AR. PROCEDURE NOTE: After obtaining informed consent, left heart catheterization and coronary angiogram were performed via the right femoral artery using standard Jj catheters. The patient tolerated the procedure without any obvious immediate complications. Total sedation time was 26 minutes. A femoral angiogram was done and Angio-Seal was deployed for hemostasis. I initially attempted right radial artery access, but was unsuccessful hence proceeded with the femoral catheterization. FINDINGS: 1. Hemodynamics: Left ventricular end-diastolic pressure is 24 mm. There is no significant gradient across the aortic valve. 2. Left ventriculogram: Left ventriculogram is not performed. 3. Angiographic data: a.Right coronary artery: Right coronary artery is a large dominant vessel that shows mild nonobstructive disease in its midportion. b.Left main coronary artery shows a 90% stenosis in its distal portion that extends into the ostium of the LAD where there is a 90% stenosis. There is mild disease involving circumflex coronary artery and the 2nd OM branch has a 70% to 80% stenosis. CONCLUSIONS: 1. Severe distal left main and proximal LAD stenosis with significant stenosis involving the OM branch. 2. Ischemic cardiomyopathy based on noninvasive studies. PLAN: I am going to consult CT Surgery for evaluation for surgical revascularization. MMODL / IJN: [id number] /
[2024-12-05 16:24] LABS: Glucose,Whole Blood 207 mg/dL (70-110)
[2024-12-05 17:07] LABS: Cholesterol 138.00 mg/dL (0.00-200.00); HDL Cholesterol 54.50 mg/dL (40.00-60.00); LDL Cholesterol,Calculated 68.9 mg/dL (0.0-131.0); Triglycerides 73.00 mg/dL (0.00-149.00); VLDL Calculation 14.60 mg/dL (5.00-40.00)
[2024-12-05] MEDS: HEPARIN SODIUM,PORCINE/D5W 25,000 UNIT in EMPTY BAG 1 BAG IV SCH (17:23)
[2024-12-05 19:22] LABS: Glucose,Whole Blood 214 mg/dL (70-110)
[2024-12-06] MEDS: HEPARIN SODIUM 1,000 UN/ML (10ML VL) IV PRN (02:48)
[2024-12-06 05:36] LABS: Glucose,Whole Blood 136 mg/dL (70-110)
[2024-12-06 07:20] LABS: Basophils # (A) 0.04 10*3/uL (0.00-0.10); Basophils % (A) 0.4 %; Eosinophils # (A) 0.21 10*3/uL (0.04-0.35); Eosinophils % (A) 2.3 %; HCT 30.6 % (37.2-46.3); HGB 9.5 g/dL (12.0-15.0); Lymphocytes # (A) 2.14 10*3/uL (0.90-5.00); Lymphocytes % (A) 23.3 %; MCH 27.2 pg (27.0-32.0); MCHC 31.0 g/dL (32.0-37.0); MCV 87.7 fL (80.0-97.0); Monocytes # (A) 0.77 10*3/uL (0.20-1.00); Monocytes % (A) 8.4 %; Neutrophils # (A) 5.96 10*3/uL (1.80-7.70); Neutrophils % (A) 64.9 %; Platelet Count 298 10*3/uL (140-440); RBC 3.49 10*6/uL (4.10-5.20); RDW 15.3 % (11.5-14.5); WBC 9.18 10*3/uL (4.50-10.00)
[2024-12-06 07:29] LABS: INR 1.1 (<1.2); Prothrombin Time 11.7 sec (10.0-12.5)
[2024-12-06 07:59] LABS: African American GFR (CKD) 84 (>60 ml/min/1.73 sqM); Anion Gap 6 mmol/L; Blood Urea Nitrogen 33 mg/dL (7-17); Calcium 9.0 mg/dL (8.4-10.2); Carbon Dioxide 25 mmol/L (22-30); Chloride 105 mmol/L (98-107); Glucose 125 mg/dL (74-99); Non-African American GFR(CKD) 73 (>60 ml/min/1.73 sqM); Potassium 4.1 mmol/L (3.5-5.1); Sodium 136 mmol/L (137-145)
--- NOTE | 2024-12-06 09:27 | PN ---
PROGRESS NOTE SUBJECTIVE: This 79-year-old woman was admitted with bimalleolar fracture, also had ejection fraction 25% to 30% indicating cardiomyopathy. The patient underwent cardiac catheterization, which showed severe distal left main and ostial LAD stenosis. Cardiothoracic Surgery was consulted, but because of the extensive risk possible stent and Impella support is also being considered. There is no history of any fever, rigors, chills at this time. PAST MEDICAL HISTORY: Reviewed. REVIEW OF SYSTEMS: A 14-point review of systems is as mentioned earlier. CURRENT MEDICATIONS: Reviewed. PHYSICAL EXAMINATION: VITAL SIGNS: Pulse 66, blood pressure ntd, respirations 16. HEENT: Conjunctivae normal. CARDIOVASCULAR: S1, S2. RESPIRATIONS: Breath sounds diminished at the bases. ABDOMEN: Soft, nontender. LEGS: Status post fracture. LABORATORY DATA: Reviewed. ASSESSMENT: 1. Status post left bimalleolar ankle fracture with open reduction internal fixation. 2. Elevated troponin up to 0.715, possible acute [id number]-IL-[id number] elevation myocardial infarction, status post cardiac arrest showing severe distal left main and ostial LAD stenosis. 3. Severely impaired LV dysfunction with segmental wall abnormality, possibly ischemic cardiomyopathy. 4. Increased WBC, possibly reactive. 5. Diabetes mellitus, type 2. 6. Cerebrovascular accident, transient ischemic attack. 7. Gastroesophageal reflux disease. 8. Hyperlipidemia. 9. History of pneumonia. RECOMMENDATIONS: Recommend to continue current management and symptomatic treatment. Otherwise closely follow with Cardiology, Cardiothoracic Surgery. Repeat labs, possible PCI. Guarded prognosis. Further recommendations to follow. MMODL / IJN: [id number] / MTDD
[2024-12-06 10:24] LABS: Hepatitis A Antibody IgM Nonreactive (Nonreactive); Hepatitis B Surface Antigen Nonreactive (Nonreactive); Hepatitis C IgG Antibody Nonreactive (Nonreactive)
[2024-12-06 11:17] LABS: Glucose,Whole Blood 160 mg/dL (70-110)
--- NOTE | 2024-12-06 12:18 | P.PN ---
Subjective Progress Note Date: 12/06/24 HISTORY OF PRESENT ILLNESS: Patient is a 79 year old female with past medical history of Diabetes, CVA/TIA, GERD, Hyperlipidemia who underwent elective Open reduction with internal fixation left bimalleolar ankle fracture for Displaced left bimalleolar ankle fracture. 2 weeks ago the patient had a fall as her ankle gave out. Her mentioned that he tried to brace her as she was falling and slowed down the fall, she did not hit her head or lose consciousness. She was then sent to Dr. Vazquez for preop clearance. Lexiscan stress test 11/29/24 showed ischemic cardiomyopathy with severe LV dysfunction without any ischemia, inconclusive EKG portion of the stress test due to baseline EKG abnormalities. She was high risk for periop cardiac event given the ischemic cardiomyopathy with severe LV sys tolic dysfunction. Discussed with the patient about her treatment options including proceeding with cardiac catheterization addressing underlying cardiac issues before she goes to surgery versus going through surgery and addressing the cardiac issues afterwards. Patient and her wanted to moved forward with the surgery understanding that its a high risk surgery. She reported 7/10 non radiating burning chest pain after the surgery, that resolved in a couple hours. She also developed dyspnea following the surgery. CTA of the chest was negative for pulmonary embolism. Echocardiogram obtained on 12/04/2024 showed EF 25 to 30% with severely impaired LV systolic function with segmental wall motion abnormality, mild mitral and tricuspid regurgitation with mild pulmonary hypertension Patient had a cardiac catheterization yesterday that revealed severe distal left main and proximal LAD stenosis. Patient was evaluated by cardiothoracic surgeon Dr. Davison who felt that she is high risk for surgical revascularization. Angiographic data was reviewed by Dr. Romo the on-call food service director who felt that catheter-based revascularization is high risk at this facility. I spoke to Dr. Hagan at [facility]. He has accepted patient to be transferred to [facility]. And will consider high risk angioplasty of the distal left main and proximal LAD. Patient this morning is stable hemodynamically. Free of symptoms. She is on IV heparin aspirin nitrates beta-blockers MARTHA inhibitor's and statins. Labs hemoglobin this morning is stable. I spoke to the transfer team at [facility] and we will arrange for transfer of the patient. Patient is agreeable to transfer. PHYSICAL EXAMINATION: Neck: Brisk carotid upstroke, no jugular venous distention. Lungs: Clear to auscultation. Heart: Regular pulse Abdomen: Soft, mildly distended, hypoactive bowel sounds Extremities: No edema, intact distal pulses. Neuro: Alert, oritented, no focal deficits. Detailed neuro exam was not performed. ASSESSMENT: # Acute NSTEMI # Ischemic cardiomyopathy with EF 25-30% # Displaced left bimalleolar ankle fracture S/p Open reduction with internal fixation left bimalleolar ankle fracture # Diabetes mellitus # Hyperlipidemia # Hypertension # History of CVA/TIA # History of tobacco use PLAN: Continue aspirin 81 mg daily, Lipitor 40 mg at bedtime, Imdur 30 mg daily, losartan 25 mg daily, Toprol XL 25 mg daily Continue IV heparin Transfer patient to [facility] for tertiary care Nurse practitioner note has been reviewed, I agree with documented findings and plan of care. Patient was seen and examined. Objective - Vital Signs Vital signs: Vital Signs Temp 98.7 F 12/06/24 03:04 Pulse 73 12/06/24 03:04 Resp 18 12/06/24 03:04 BP 106/56 12/06/24 03:04 Pulse Ox 98 12/06/24 03:04 FiO2 Intake & Output 12/05/24 12/06/24 12/06/24 18:59 06:59 18:59 Intake Total 100 92.333 110 Output Total 100 400 Balance 100 -7.667 -290 Weight 99.5 kg Intake: IV 100 Intake, IV Titration 92.333 Amount Heparin Sodium,Porcine/ 92.333 D5w 25,000 unit In Empty Bag 1 bag @ 10.06 UNIT/KG /HR 10 mls/hr IV .Q24H [facility] Rx#:[id number] Oral 110 Output: Urine 100 400 Other: Voiding Method External Catheter External Catheter - Labs CBC & Chem 7: 12/06/24 06:57 12/06/24 06:57 Labs: Abnormal Lab Results - Last 24 Hours (Table) 12/05/24 12/05/24 12/05/24 Range/Units 11:51 12:08 16:22 RBC (4.10-5.20) 10*6/uL Hgb (12.0-15.0) g/dL Hct (37.2-46.3) % MCHC (32.0-37.0) g/dL Immature Gran # (0.00-0.04) 10*3/uL APTT (22.0-30.0) sec Sodium 136 L (137-145) mmol/L BUN 31 H (7-17) mg/dL Glucose 136 H (74-99) mg/dL POC Glucose (mg/dL) 152 H 207 H (70-110) mg/dL Total Protein 5.6 L (6.3-8.2) g/dL Albumin 3.2 L (3.5-5.0) g/dL 12/05/24 12/06/24 12/06/24 Range/Units 19:21 00:21 05:34 RBC (4.10-5.20) 10*6/uL Hgb (12.0-15.0) g/dL Hct (37.2-46.3) % MCHC (32.0-37.0) g/dL Immature Gran # (0.00-0.04) 10*3/uL APTT 44.1 H (22.0-30.0) sec Sodium (137-145) mmol/L BUN (7-17) mg/dL Glucose (74-99) mg/dL POC Glucose (mg/dL) 214 H 136 H (70-110) mg/dL Total Protein (6.3-8.2) g/dL Albumin (3.5-5.0) g/dL 12/06/24 12/06/24 12/06/24 Range/Units 06:57 06:57 06:57 RBC 3.49 L (4.10-5.20) 10*6/uL Hgb 9.5 L (12.0-15.0) g/dL Hct 30.6 L (37.2-46.3) % MCHC 31.0 L (32.0-37.0) g/dL Immature Gran # 0.06 H (0.00-0.04) 10*3/uL APTT 56.0 H (22.0-30.0) sec Sodium 136 L (137-145) mmol/L BUN 33 H (7-17) mg/dL Glucose 125 H (74-99) mg/dL POC Glucose (mg/dL) (70-110) mg/dL Total Protein (6.3-8.2) g/dL Albumin (3.5-5.0) g/dL Microbiology - Last 24 Hours (Table) 12/02/24 02:10 Blood Culture - Preliminary Blood
--- NOTE | 2024-12-06 13:42 | P.DS ---
Providers Date of admission: 12/01/24 13:47 Expected date of discharge: 12/06/24 Attending physician: Rajni Givens Consults: 12/01/24 13:31 Consult Physician Routine Consulting Provider: Rajni Givens Consult Reason/Comments: Patient requires inpt stay for rehab placement Do you want consulting provider notified?: Yes 12/03/24 17:34 Consult Physician Routine Consulting Provider: Chan Leon Consult Reason/Comments: elevated troponins Do you want consulting provider notified?: Yes 12/05/24 10:04 Consult Physician Routine Consulting Provider: Corby Schmitz Consult Reason/Comments: CABG eval Do you want consulting provider notified?: Yes Primary care physician: Wily Kamara Hospital Course: Final diagnosis Status post left bimalleolar ankle fracture with open reduction internal fixation Elevated troponin up to 0.715, acute NSTEMI status post cardiac catheterization yesterday showing severe distal left main and ostial LAD stenosis Severely impaired LV dysfunction with segmental wall abnormality, ischemic cardiomyopathy, EF is 25 to 30% Increased WBC, possibly reactive History of diabetes mellitus, type II History of CVA/TIA GERD Hyperlipidemia Obesity with a BMI of 38.9 Discharge disposition Patient is being transferred in a stable condition with guarded prognosis to [facility] in [place]. Patient will follow-up with Dr. Kamara in the outpatient setting upon discharge. Patient is to follow-up with orthopedics or podiatry surgeon Dr. Harry as scheduled. Patient has been accepted by Dr. Hagan cardiology at [facility] in [place]. Total time taken is greater than 35 minutes. Hospital course This is a 79-year-old female who was recently admitted under orthopedic services for left bimalleolar fracture and also had found elevated troponins and an EF of 25 to 30% with cardiomyopathy. Patient evaluated by cardiology underwent cardiac catheterization which showed severe distal left main and ostial LAD stenosis. Cardiothoracic surgery evaluated and patient is extremely high risk recommend stenting. Cardiology reevaluated this morning and discussed with cardiology from [facility] and has been accepted by Dr. Hagan for possible intervention high risk angioplasty of the distal left main and proximal LAD. Patient is currently maintained on heparin and other cardiac medications as mentioned below and is currently free of chest pain. Family and patient are agreeable to the transfer and arrangements for transportation have been made. Please refer to cardiology and CT surgery notes for further HPI. Patient will need to follow-up with orthopedic surgeon Dr. Harry in the outpatient setting once discharged. Overall guarded prognosis. Physical exam: Gen: This is a 79-year-old female who is awake, alert and oriented x 3, well- developed, elderly appearing, obese HEENT: Head is atraumatic, normocephalic. Pupils equal, round. Sclerae is anicteric. NECK: Supple. No JVD. No lymphadenopathy. No thyromegaly. LUNGS: Diminished breath sounds bilaterally otherwise clear to auscultation. No wheezes or rhonchi. No intercostal retractions. HEART: S1, S2 are muffled ABDOMEN: Soft. Obese bowel sounds are present. No masses. No tenderness. EXTREMITIES: No pedal edema. No calf tenderness. Left recent ORIF with boot noted NEUROLOGICAL: Patient is awake, alert and oriented x3. Cranial nerves 2 through 12 are grossly intact. Diffusely weak, nonweightbearing currently Please refer to medication reconciliation sheet for a list of medications. The impression and plan of care has been dictated by Kelly Gannon, Nurse Practitioner as directed. Dr. Chon MD I have performed a history and examination and MDM of this patient, discussed the same with the dictator, and agree with the dictator's assessment and plan as written ,documented as a scribe. Based on total visit time, I have performed more than 50% of the visit. Patient Condition at Discharge: Stable Plan - Discharge Summary Discharge Rx Participant: No New Discharge Prescriptions: No Action Glimepiride [Amaryl] 4 mg PO W/SUPPER Sertraline HCl [Zoloft] 200 mg PO DAILY diazePAM [Valium] 2 mg PO DIRECTED PRN PRN Reason: Migraine Headache HYDROcodone/APAP 5-325MG [Sycamore 5-325] 2 tab PO Q4H PRN PRN Reason: Pain Ferrous Sulfate [Feosol] 65 mg PO DAILY Cholecalciferol [Vitamin D3 (25 Mcg = 1000 Iu)] 25 mcg PO DAILY Qunol 1 tab PO DAILY metFORMIN HCL [Glucophage] 2,000 mg PO HS Atorvastatin [Lipitor] 20 mg PO HS Multivit-Min/FA/Lycopen/Lutein [Centrum Silver Tablet] 1 tab PO HS Pioglitazone [Actos] 45 mg PO HS Bismuth Subsalicylate [Pepto-Bismol] 262 mg PO DIRECTED PRN PRN Reason: gerd Pantoprazole [Protonix] 40 mg PO HS Krill/Om-3/Dha/Epa/Phospho/Ast [Megared Babb-3 Krill 1,000 mg] 1 each PO DAILY Dicyclomine HCl 20 mg PO DIRECTED PRN PRN Reason: abd. spasm Discharge Medication List Glimepiride [Amaryl] 4 mg PO W/SUPPER 05/06/18 [History] Sertraline HCl [Zoloft] 200 mg PO DAILY 07/21/20 [History] metFORMIN HCL [Glucophage] 2,000 mg PO HS 06/24/21 [History] Atorvastatin [Lipitor] 20 mg PO HS 11/27/22 [History] Multivit-Min/FA/Lycopen/Lutein [Centrum Silver Tablet] 1 tab PO HS 11/27/22 [History] Pioglitazone [Actos] 45 mg PO HS 11/27/22 [History] Bismuth Subsalicylate [Pepto-Bismol] 262 mg PO DIRECTED PRN 11/15/24 [History] Cholecalciferol [Vitamin D3 (25 Mcg = 1000 Iu)] 25 mcg PO DAILY 11/15/24 [History] Dicyclomine HCl 20 mg PO DIRECTED PRN 11/15/24 [History] Ferrous Sulfate [Feosol] 65 mg PO DAILY 11/15/24 [History] HYDROcodone/APAP 5-325MG [Sycamore 5-325] 2 tab PO Q4H PRN 11/15/24 [History] Krill/Om-3/Dha/Epa/Phospho/Ast [Megared Babb-3 Krill 1,000 mg] 1 each PO DAILY 11/15/24 [History] Pantoprazole [Protonix] 40 mg PO HS 11/15/24 [History] Qunol 1 tab PO DAILY 11/15/24 [History] diazePAM [Valium] 2 mg PO DIRECTED PRN 11/15/24 [History] Follow up Appointment(s)/Referral(s): Hernan Harry DPM [Doctor of Osteopathic Medicine] - 1 Week Patient Instructions/Handouts: *Surgery [facility] - (Harry) Discharge Instructins Foot Surgery, *Surgery [facility] - (Anesthesia) Discharge Instructions Outpatient Surgery Activity/Diet/Wound Care/Special Instructions: Keep the splint clean, dry, and intact. Do not remove No weightbearing on the left lower extremity Use crutches, walker, wheelchair for mobility Keep the leg elevated when resting Apply ice behind the knee above the splint Take pain medications as prescribed Regular diet as tolerated
[2024-12-06 16:31] LABS: Glucose,Whole Blood 96 mg/dL (70-110)
[2024-12-06 16:59] VITALS: BP 102/49; PULSE 70; RESP 16; TEMP 98.4
--- NOTE | 2024-12-08 08:56 | CDI ---
Documentation Clarification Form Date: 12/08/2024 08:41:16 AM From: Tabatha Espinoza Phone: Admit Date: 12/01/2024 01:47:00 PM Patient Name: Ingris Macdonald Visit Number: [id number] Discharge Date: 12/06/2024 06:05:00 PM ATTENTION: The Clinical Documentation Specialists (CDI) and [facility] Coding Staff appreciate your assistance in clarifying documentation. Please respond to the clarification below the line at the bottom and electronically sign. The CDI & [facility] Coding staff will review the response and follow-up if needed. Please note: Queries are made part of the Legal Health Record. If you have any questions, please contact the author of this message via ITS. Doctor/Provider: Rajni Givens Normocytic anemia is documented per Progress Notes. Pt also had an ORIF this visit. Additional specificity regarding the acuity of anemia is requested. History/Risk Factors: 79yo F, Lt bimalleolar ankle Fx, non-POA NSTEMI, ICM, DMII, GERD, HLD, obesity Hx CVA/TIA Clinical indicators: Hemoglobin: 12/01 10.4 12/02 11.0 12/04 10.0 12/05 9.7 12/06 9.5 Hematocrit: 12/01 33.7 12/02 35.9 12/04 31.8 12/05 31.5 12/06 30.6 Treatment: Soft tissue andhematoma removedfrom between the fracturefragments. EstimatedBlood Loss 5. Recommend age appropriate CA screenings Please clarify the type and acuity of anemia: [ ] Acute on chronic blood loss anemia [ ] Chronic blood loss anemia [x ] Unable to determine [ ] Other, please specify (Template Last Revised: June 2020) MTDD
--- NOTE | 2024-12-08 09:42 | CDI ---
Documentation Clarification Form Date: 12/08/2024 08:41:16 AM From: Tabatha Espinoza Phone: Admit Date: 12/01/2024 01:47:00 PM Patient Name: Ingris Macdonald Visit Number: [id number] Discharge Date: 12/06/2024 06:05:00 PM ATTENTION: The Clinical Documentation Specialists (CDI) and [facility] Coding Staff appreciate your assistance in clarifying documentation. Please respond to the clarification below the line at the bottom and electronically sign. The CDI & [facility] Coding staff will review the response and follow-up if needed. Please note: Queries are made part of the Legal Health Record. If you have any questions, please contact the author of this message via ITS. Doctor/Provider: Rajni Givens Status postcardiac arrest is documented per Progress Note 12/05 which may lack sufficient clinical evidence/support in the medical record. Additional clarification is requested. History/Risk Factors: 79yo F, Lt bimalleolar ankle Fx, ASHF, non-POA NSTEMI, ICM, DMII, GERD, HLD, obesity Hx CVA/TIA Clinical Indicators: VITAL SIGNS: 12/04 Pulse is 87, [id number]/60, and respirations 20. / Temp 97.9 F Pulse 64 Resp 22 BP 134/61 Pulse Ox 100 12/06 Temp 98.7 F Pulse 73 Resp 18 BP 106/56 Pulse Ox 98 Treatment: Recommend to continue current management and symptomatic treatment. Otherwise closely follow with Cardiology, Cardiothoracic Surgery. Repeat labs,possiblePCI. Guarded prognosis. Further recommendations to follow. Please clarify if cardiac arrest is a valid diagnosis? [ ] No, cardiac arrest is ruled out [ ] Yes, cardiac arrest is present as evidence by (additional clinical support): [ ] Patient has previously experienced cardiac arrest but not during this visit [ ] Other (please specify diagnosis) [ x] Unable to determine (Template Last Revised: October 2023) MTDD
== END 2024-12-06 18:05 | disposition short-term general hospital (02) | DRG 492 ==
LOC: OR 09:05 → 4SSUR 13:47 → 2SICU 12-03 20:51 → 3SCARD 12-05 18:41
PROVIDERS: ADMIT Hospitalist; ATTEND Hospitalist
PROC: 0QSH04Z Reposition Left Tibia with Internal Fixation Device, Open Approach (ICD-10-PCS; 2024-12-01)
PROC: 0QSK04Z Reposition Left Fibula with Internal Fixation Device, Open Approach (ICD-10-PCS; principal; 2024-12-01 11:15)
PROC: 4A023N7 Measurement of Cardiac Sampling and Pressure, Left Heart, Percutaneous Approach (ICD-10-PCS; 2024-12-05)
PROC: B2111ZZ Fluoroscopy of Multiple Coronary Arteries using Low Osmolar Contrast (ICD-10-PCS; 2024-12-05)
DX: S82.842A Displaced bimalleolar fracture of left lower leg, initial encounter for closed fracture (principal); I21.4 Non-ST elevation (NSTEMI) myocardial infarction; I50.21 Acute systolic (congestive) heart failure; I27.22 Pulmonary hypertension due to left heart disease; E11.9 Type 2 diabetes mellitus without complications; E66.9 Obesity, unspecified; D64.9 Anemia, unspecified; S82.52XA Displaced fracture of medial malleolus of left tibia, initial encounter for closed fracture; I11.0 Hypertensive heart disease with heart failure; F32.A Depression, unspecified; I08.1 Rheumatic disorders of both mitral and tricuspid valves; R65.10 Systemic inflammatory response syndrome (SIRS) of non-infectious origin without acute organ dysfunction; E78.5 Hyperlipidemia, unspecified; I25.10 Atherosclerotic heart disease of native coronary artery without angina pectoris; I25.5 Ischemic cardiomyopathy; M81.0 Age-related osteoporosis without current pathological fracture; H91.92 Unspecified hearing loss, left ear; K21.9 Gastro-esophageal reflux disease without esophagitis; Z96.21 Cochlear implant status; W19.XXXA Unspecified fall, initial encounter; Z68.38 Body mass index [BMI] 38.0-38.9, adult; Z87.891 Personal history of nicotine dependence; Z79.84 Long term (current) use of oral hypoglycemic drugs; I25.2 Old myocardial infarction; Z79.899 Other long term (current) drug therapy; Z82.49 Family history of ischemic heart disease and other diseases of the circulatory system; Z85.828 Personal history of other malignant neoplasm of skin; Z87.19 Personal history of other diseases of the digestive system; Z86.73 Personal history of transient ischemic attack (TIA), and cerebral infarction without residual deficits; Z87.01 Personal history of pneumonia (recurrent); Z86.74 Personal history of sudden cardiac arrest
CPT/HCPCS: 71045; 71046; 71275; 80048; 80053; 80061; 80074; 81001; 83036; 83605; 83880; 84443; 84484; 85025; 85379; 85610; 85730; 87040; 93306; 93458; 93880; 93970; 94640; 94760